=== PATIENT | male | born 1935 | race Caucasian/White ===

== ENCOUNTER 2017-03-29 12:14 | Emergency (ER) | payer BC ==
[2017-03-29 13:01] VITALS: PULSE 71; TEMP 98.5; BMI 25.9
--- NOTE | 2017-03-29 14:16 | PDOC ---
History of Present Illness - General Chief Complaint: Pain Stated Complaint: RT SHOULDER PAIN Time Seen by Provider: 03/29/17 14:15 - History of Present Illness Initial Comments: 81 year old with HTN, HLD, and recent prostate cancer diagnosis (stage IV to lymph nodes with bone scan negative, s/p hromone injection one week prior and planned radiation) presenting with acute on chronic bilateral shoulder pain. He had onset of sharp 5/10-10/10 bilateral shoulder pain a few months prior worse with movement and slightly better with rest. He eventually saw a rheumatolgist who was suspicious for PMR and started a steroid regimen which was helpful at higher doses (40 Mg and 20 MG), however, the pain acutely worsened 5-6 days prior when he tapered to 15 MG daily. He called his lithographic photographer apprentice who told him to stay the course and start PT which he states has worsened his pain and he has had trouble sleeping the last few nights. He came in today because the pain is unbearable. Denies fevers, chills, nausea vomiting, diarrhea, sob, lightheadedness, night sweats, chest pain, back pain, or other sick symptoms. 03/29/17 14:41 Past History - Past Medical History Allergies/Adverse Reactions: Allergies Allergy/AdvReac Type Severity Reaction Status Date / Time No Known Allergies Allergy Verified 03/29/17 14:41 Home Medications: Ambulatory Orders Amlodipine Besylate [Norvasc -] 5 mg PO DAILY 03/29/17 Carbidopa/Levodopa 25/100 [Sinemet 25/100 -] 1 each PO TID 03/29/17 Hydrochlorothiazide 25 mg PO DAILY 03/29/17 Oxycodone HCl/Acetaminophen [Percocet 5-325 mg Tablet] 1 tab PO Q6H PRN Pravastatin Sodium [Pravachol (Nf)] 40 mg PO HS 03/29/17 Prednisolone [Millipred] 15 mg PO DAILY 03/29/17 Tamsulosin HCl [Flomax] 0.4 mg PO DAILY 03/29/17 Cancer: Yes Cardiac Disorders: Yes COPD: No HTN: Yes Hypercholesterolemia: Yes - Suicide/Smoking/Psychosocial Hx Smoking History: Former smoker Have you smoked in the past 12 months: No Information on smoking cessation initiated: No Hx Alcohol Use: No Drug/Substance Use Hx: No Substance Use Type: None Review of Systems - Review of Systems Constitutional: No: Chills, Diaphoresis, Fever, Weakness HEENTM: No: Blurred Vision Respiratory: No: Cough, Orthopnea, Shortness of Breath, Productive cough Cardiac (ROS): No: Chest Pain, Irregular Heart Rate, Syncope ABD/GI: No: Diarrhea, Nausea, Vomiting : No: Burning, Dysuria, Discharge Musculoskeletal: Yes: Joint Pain, Joint Stiffness. No: Back Pain Integumentary: No: Change in Color, Erythema, Flushing, Lesions Neurological: No: Headache, Numbness, Tremors, Weakness Psychiatric: No: Anxiety, Depression Endocrine: No: Excessive Sweating, Flushing *Physical Exam - Vital Signs Last Vital Signs Temp Pulse Resp BP Pulse Ox 98.5 F 71 16 147/75 96 03/29/17 12:57 03/29/17 12:57 03/29/17 12:57 03/29/17 12:57 03/29/17 12:57 - Physical Exam General Appearance: Yes: Nourished, Appropriately Dressed. No: Apparent Distress HEENT: positive: EOMI, RUTH, Normal ENT Inspection, Normal Voice Neck: positive: Tender, Trachea midline, Normal Thyroid, Supple. negative: Rigid Respiratory/Chest: positive: Lungs Clear, Normal Breath Sounds. negative: Chest Tender, Respiratory Distress, Accessory Muscle Use Cardiovascular: positive: Regular Rhythm, Regular Rate, Murmur Gastrointestinal/Abdominal: positive: Normal Bowel Sounds, Flat, Soft. negative : Tender Musculoskeletal: positive: Normal Inspection, Decreased Range of Motion, Other ( No TTP at shoulder joints. Endorses pain is at bridget-medial shoulder joint space but not tender in that area.). negative: CVA Tenderness Extremity: positive: Normal Capillary Refill, Normal Inspection, Pelvis Stable. negative: Normal Range of Motion (limited shoulder ROM secondary to pain), Tender Integumentary: positive: Normal Color, Dry, Warm Neurologic: positive: Fully Oriented, Alert, Normal Mood/Affect, Normal Response. negative: Motor Strength 5/5 (LE strenght 5/5 but UE strenght unable to be masured appropriately 2/2 limited ROM in the setting of shoudler pain.) ED Treatment Course - LABORATORY CBC & Chemistry Diagram: 03/29/17 18:18 03/29/17 18:18 Medical Decision Making - Medical Decision Making 81 year old male with history of HTN, HLD, and recent prostate cancer diagnosis without evidence of bony met (Bone scan 2 weeks prior) presenting with acute on chronic bilateral shoulder pain. this is likely DJD vs. rheumatic process given his improvement in the past on steroids and worsening of symptoms with tapering of steroids. Other concerning emergent pathologies include dissection or acs. will get chest XR, EKG, and shoulder films. Placed 20 G PIV in left AC and will administer 1 G tylenol givne admission of relief with advil on home with little to no response with oxycodone. 03/29/17 15:36 Pain better with 1 G tylenol. No acute EKG changes. CXR, and bl shoulder XRs negative for acute pathology or DJD. Called lithographic photographer apprentice (Dr. Brown) and spoke to call service at 16:35 PM. 03/29/17 16:32 Official read of CXR indicates likely tortuous but possibly slightly widened upper aorta; patient not complaining of chest pain but bilateral arm BP unequal (Left arm 127/64 and right 108/63 with repeats supporting this) so dissection is of concern. Will get labs and CTA. Shoulder XRs also read as without acute pathology or obvious arthropathy. Will ultimately dispo pending CTA resutls. 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 Brown on Saturday. We were unable to speak to Kevin. Patient's pain is better and is OK with discharge. We will also set up with orthopedic surgery and and ct surgery follow up. 03/29/17 20:51 *DC/Admit/Observation/Transfer Diagnosis at time of Disposition: Shoulder pain, bilateral Qualifiers: Chronicity: chronic Qualified Code(s): M25.511 - Pain in right shoulder - Discharge Dispostion Disposition: HOME Condition at time of disposition: Improved Admit: No - Referrals Referrals: Serafin Jackson MD [Staff Physician] - Butch Brown MD [Staff Physician] - - Patient Instructions Additional Instructions: We scanned your shoulders and your chest. There was no sign of any problems with your bones. Your aorta looked slightly large on the chest xray and your blood pressure in each arm was different so we did a CT scan of your chest saw a slightly enlarged aorta that you should follow up with CT surgery. Please keep your steroids at 25 MG daily and use Tylenol and Advil as needed. Please follow up with your lithographic photographer apprentice on Saturday for better management of your pain. Plesae follow up with the orthopedic surgeon and the thoracic surgeon for your shoulders and your aorta size respectively. Please return to the ED if you have any new or worsening problems. - Post Discharge Activity
--- NOTE | 2017-03-29 15:03 | PDOC ---
Attending Attestation - Resident Resident Name: Naun Aguirre - ED Attending Attestation I have performed the following: I have examined & evaluated the patient, The case was reviewed & discussed with the resident, I agree w/resident's findings & plan, Exceptions are as noted - HPI HPI: 03/29/17 14:59 81y M hx of htn, hl, recent dx of stage 4 prostate ca, presents with complaint of acute on chronic b/l shoulder pain, atraumatic, was started on steroids due to suspected PMR, as pt tapered down on the steroids, his pain recurreed. worse with movement, sharp stabbing in nature improved with rest but he still has 5/ 10 pain at rest, so much so gi the could not sleep last night. pt candy any cp , back pain, new numbness/tinging/weakness. (has chronic foot drup due to disk herniation) on exam pt otherwise well appearing in no distress cardiac/pulm exan nromal pulses symmetric in upper extermities bp noted to be assyemetric on UE - cxr noted tortuosity with prominent mediastinal sillhouette inlight of his physical exam findings, consider possible dissection will obtain cmp, and CTA - Physicial Exam PE: 03/30/17 16:48 se eabo e - Medical Decision Making 03/30/17 16:49 see above Heart Score/ECG Review - ECG Impressions Comment:: 03/29/17 18:15 Twelve-lead EKG was performed and reviewed by me. There is normal sinus rhythm with a normal rate. Rate of 70 First-degree AV block PACs noted LVH with repolarization
[2017-03-29] MEDS ORDERED: ACETAMINOPHEN 1000 MG/100 ML VIAL (NON FORMULARY) IVPB ONE (15:07)
[2017-03-29] MEDS ORDERED: ACETAMINOPHEN INJECTION 100 ML IVPB ONE (15:25)
--- NOTE | 2017-03-29 15:57 | EKG ---
Test Reason : Blood Pressure : / mmHG Vent. Rate : 070 BPM Atrial Rate : 070 BPM P-R Int : 216 ms QRS Dur : 090 ms QT Int : 406 ms P-R-T Axes : 022 -10 167 degrees QTc Int : 438 ms SINUS RHYTHM WITH 1ST DEGREE A-V BLOCK WITH PREMATURE ATRIAL COMPLEXES LEFT VENTRICULAR HYPERTROPHY WITH REPOLARIZATION ABNORMALITY ABNORMAL ECG NO PREVIOUS ECGS AVAILABLE Confirmed by MD SEMEA, MERLENE ([id number]) on 03/29/2017 3:57:14 PM Referred By: Confirmed By:MERLENE STEPHENSON MD
[2017-03-29 18:30] VITALS: BP 127/64
[2017-03-29 18:30] LABS: HEMATOCRIT 39.8 % (35.4-49); HEMOGLOBIN 13.4 GM/dL (11.7-16.9); MCH 32.2 pg (25.7-33.7); MCHC 33.7 g/dl (32.0-35.9); MEAN CELL VOLUME 95.3 fl (80-96); MEAN PLT VOLUME 8.6 fl (7.5-11.1); PLATELET COUNT 238 K/MM3 (134-434); RBC 4.17 M/mm3 (4.00-5.60); WHITE BLOOD COUNT 9.7 K/mm3 (4.0-10.0)
[2017-03-29 19:05] LABS: INR 0.94 (0.82-1.09); PROTHROMBIN TIME (PATIENT) 10.6 SEC (9.98-11.88)
[2017-03-29 19:14] LABS: ALBUMIN 3.2 g/dl (3.4-5.0); ALK PHOS 56 U/L (45-117); ANION GAP 4 (8-16); BILIRUBIN,TOTAL 0.9 mg/dL (0.2-1.0); BLOOD UREA NITROGEN 28 mg/dL (7-18); CALCIUM 8.5 mg/dL (8.5-10.1); CHLORIDE 101 mmol/L (98-107); CO2 34 mmol/L (21-32); CREATININE 0.9 mg/dL (0.7-1.3); GLUCOSE,RANDOM 114 mg/dL (74-106); POTASSIUM 4.1 mmol/L (3.5-5.1); SGOT/AST 20 U/L (15-37); SGPT/ALT 32 U/L (12-78); SODIUM 139 mmol/L (136-145); TOT PROT 6.5 g/dl (6.4-8.2)
== END 2017-03-29 22:01 | disposition home or self-care (01) ==
LOC: JER 12:14
PROC: 3E033NZ Introduction of Analgesics, Hypnotics, Sedatives into Peripheral Vein, Percutaneous Approach (ICD-10-PCS; principal; 2017-03-29)
DX: M25.512 Pain in left shoulder (principal); M25.511 Pain in right shoulder; I10 Essential (primary) hypertension; E78.00 Pure hypercholesterolemia, unspecified; C61 Malignant neoplasm of prostate; C77.9 Secondary and unspecified malignant neoplasm of lymph node, unspecified
CPT/HCPCS: 36415; 71046-TC; 71275-TC; 73030-TC-LT; 73030-TC-RT; 80053; 85027; 85610; 86850; 86900; 86901; 93005; 93010; 96374; 99283-25

== ENCOUNTER 2017-04-04 08:54 | Day surgery (SDC) | payer BC ==
[2017-04-03 13:45] VITALS: BMI 25.9
[2017-04-04] MEDS ORDERED: PROPOFOL 20 ML ONE (09:36)
[2017-04-04] MEDS ORDERED: LIDOCAINE HCL/PF 2% SDV 5ML VIAL ONE (09:36)
[2017-04-04] MEDS ORDERED: MIDAZOLAM HCL 2 MG/2 ML SINGLE DOSE VIAL ONE (09:38)
[2017-04-04] MEDS ORDERED: oxyCODONE HCL 5 MG TABLET PO PRN (10:13)
[2017-04-04] MEDS ORDERED: LACTATED RINGERS SOLUTION 1,000 ML IV SCH (10:15)
[2017-04-04] MEDS ORDERED: ceFAZolin SODIUM 1 GM VIAL IVPB ONE (10:38)
[2017-04-04] MEDS ORDERED: SODIUM CHLORIDE 0.9% P/F 10 ML VIAL IJ ONE (10:48)
[2017-04-04] MEDS ORDERED: ceFAZolin SODIUM 1 GM VIAL ONE (10:48)
--- NOTE | 2017-04-04 11:41 | OP ---
Operative Note - Note: Operative Date: 04/04/17 Pre-Operative Diagnosis: rule out temporal arteritis Operation: right temporal artery biopsy Post-Operative Diagnosis: Same as Pre-op Surgeon: Virgil Clayton Anesthesia: Fractional Estimated Blood Loss (mls): 20 Operative Report Dictated: Yes
--- NOTE | 2017-04-04 11:43 | HP ---
Admitting History and Physical - Admission Chief Complaint: rule out temporal arteritis Limitations to Obtaining History: No Limitations - Smoking History Smoking history: Former smoker Have you smoked in the past 12 months: No If you are a former smoker, when did you quit?: 1997 - Alcohol/Substance Use Hx Alcohol Use: No Home Medications - Allergies Allergies/Adverse Reactions: Allergies Allergy/AdvReac Type Severity Reaction Status Date / Time No Known Allergies Allergy Verified 04/04/17 09:11 - Home Medications Home Medications: Ambulatory Orders Amlodipine Besylate [Norvasc -] 5 mg PO DAILY 03/29/17 Carbidopa/Levodopa 25/100 [Sinemet 25/100 -] 1 each PO TID 03/29/17 Hydrochlorothiazide 25 mg PO DAILY 03/29/17 Oxycodone HCl/Acetaminophen [Percocet 5-325 mg Tablet] 1 tab PO Q6H PRN Pravastatin Sodium [Pravachol (Nf)] 40 mg PO HS 03/29/17 Prednisolone [Millipred] 40 mg PO DAILY 03/29/17 Tamsulosin HCl [Flomax] 0.4 mg PO DAILY 03/29/17 Review of Systems - Review of Systems Constitutional: reports: No Symptoms Eyes: reports: No Symptoms HENT: reports: No Symptoms Neck: reports: No Symptoms Cardiovascular: reports: No Symptoms Respiratory: reports: No Symptoms Gastrointestinal: reports: No Symptoms Genitourinary: reports: No Symptoms Breasts: reports: No Symptoms Reported Musculoskeletal: reports: No Symptoms Integumentary: reports: No Symptoms Neurological: reports: No Symptoms Endocrine: reports: No Symptoms Hematology/Lymphatic: reports: No Symptoms Psychiatric: reports: No Symptoms Physical Examination Vital Signs: Vital Signs Temperature 97.4 F L 04/04/17 09:12 Pulse Rate 69 04/04/17 09:12 Respiratory Rate 16 04/04/17 09:12 Blood Pressure 158/74 04/04/17 09:12 O2 Sat by Pulse Oximetry (%) 97 04/04/17 09:12 Constitutional: Yes: Well Nourished, No Distress, Calm Eyes: Yes: WNL, Conjunctiva Clear, EOM Intact HENT: Yes: WNL, Atraumatic, Normocephalic Neck: Yes: WNL, Supple, Trachea Midline Cardiovascular: Yes: WNL, Regular Rate and Rhythm Respiratory: Yes: WNL, Regular, CTA Bilaterally Gastrointestinal: Yes: WNL, Normal Bowel Sounds Musculoskeletal: Yes: WNL Extremities: Yes: WNL Edema: No Integumentary: Yes: WNL Neurological: Yes: WNL, Alert, Oriented ...Motor Strength: WNL Psychiatric: Yes: WNL Problem List - Problems (1) Temporal arteritis Code(s): M31.6 - OTHER GIANT CELL ARTERITIS (2) Shoulder pain, bilateral Code(s): M25.511 - PAIN IN RIGHT SHOULDER; M25.512 - PAIN IN LEFT SHOULDER Assessment/Plan rule out temporal arteritis 1. for right temporal artery biopsy
[2017-04-04 12:43] VITALS: TEMP 98.3
[2017-04-04 13:49] VITALS: BP 126/73; PULSE 78
--- NOTE | 2017-04-05 16:38 | PATH ---
Surgical Pathology Report Patient Name: TASNEEM WAY Med. Rec. #: [id number] /Age/Gender: 1935 (Age: 81) / M Account: [id number] Location: [facility] Taken: 04/04/2017 Received: 04/04/2017 Reported: 04/05/2017 Physicians: Virgil Clayton Specimen(s) Received RIGHT TEMPORAL ARTERY BIOPSY Clinical History Temporal arteritis Final Diagnosis TEMPORAL ARTERY, RIGHT, BIOPSY: MUSCULAR ARTERY WITH NO EVIDENCE OF ARTERITIS. MULTIPLE LEVELS EXAMINED. Electronically Signed Allison Aponte M.D. Gross Description Received in formalin labeled "right temporal artery," is a 1.6 cm in length portion of vasculature, consistent with a temporal artery biopsy. The specimen is sectioned and entirely submitted in one cassette. /04/04/2017 saudi04/04/2017
== END 2017-04-04 13:50 | disposition home or self-care (01) ==
LOC: JASU-SURG 08:54
PROVIDERS: ATTEND Surgery Vascular Surgery
PROC: 03BS0ZX Excision of Right Temporal Artery, Open Approach, Diagnostic (ICD-10-PCS; principal; 2017-04-04 10:30)
DX: M31.6 Other giant cell arteritis (principal)
CPT/HCPCS: 94760

== ENCOUNTER 2017-04-09 11:38 | Observation (INO) | payer BC ==
[2017-04-09 12:32] VITALS: BMI 27.6
--- NOTE | 2017-04-09 12:47 | PDOC ---
History of Present Illness - General Chief Complaint: Cold Symptoms Stated Complaint: FLU LIKE SYMPTOMS, SHOULDER PAIN Time Seen by Provider: 04/09/17 12:46 - History of Present Illness Initial Comments: 81 year old with HTN, HLD, and recent prostate cancer diagnosis (stage IV to lymph nodes with bone scan negative few weeks prior, s/p hormone injection two week prior and planned radiation) presenting with acute on chronic bilateral shoulder pain and recently flu positive. He had onset of sharp 5/10-10/10 bilateral shoulder pain a few months prior worse with movement and at night and slightly better with rest, heat packs, and high dose steroids. He eventually saw a rheumatolgist who was suspicious for PMR and recent performed a temporal artery biopsy after a CT scan in our ED demonstrated a slightly dilated aorta that lead to suspicion for GCA. He was uptitrated on his steroid regimen to 50 MG a few days prior by his environmental research project manager, with little relief. He came in today because the pain is unbearable. He was swabbed and flu positive two days prior in the setting of cough, fevers, and some chills. Denies nausea, vomiting, diarrhea, sob, lightheadedness, night sweats, chest pain, back pain, or other sick symptoms. 04/09/17 13:28 Past History - Past Medical History Allergies/Adverse Reactions: Allergies Allergy/AdvReac Type Severity Reaction Status Date / Time No Known Allergies Allergy Verified 04/09/17 12:26 Home Medications: Ambulatory Orders Amlodipine Besylate [Norvasc -] 5 mg PO DAILY 03/29/17 Carbidopa/Levodopa 25/100 [Sinemet 25/100 -] 1 each PO TID 03/29/17 Hydrochlorothiazide 25 mg PO DAILY 03/29/17 Oxycodone HCl/Acetaminophen [Percocet 5-325 mg Tablet] 1 tab PO Q6H PRN Pravastatin Sodium [Pravachol (Nf)] 40 mg PO HS 03/29/17 Prednisolone [Millipred] 40 mg PO DAILY 03/29/17 Tamsulosin HCl [Flomax] 0.4 mg PO DAILY 03/29/17 Oseltamivir Phosphate [Tamiflu] 75 mg PO DAILY 04/09/17 Promethazine HCl [Phenergan Liquid -] 5 ml PO PRN PRN 04/09/17 Anemia: No Asthma: No Cancer: Yes (DX WITH PROSTAE CA,STAGE 4) Cardiac Disorders: Yes (ENLARGED AORTIC ANERYSM) CVA: No COPD: No CHF: No DVT: No Dementia: No Diabetes: No GI Disorders: No Disorders: No HTN: Yes Hypercholesterolemia: Yes Liver Disease: No Seizures: No Thyroid Disease: No - Immunization History Immunization Up to Date: Yes - Suicide/Smoking/Psychosocial Hx Smoking History: Former smoker Have you smoked in the past 12 months: No If you are a former smoker, when did you quit?: 1997 Information on smoking cessation initiated: No Hx Alcohol Use: No Drug/Substance Use Hx: No Substance Use Type: None Hx Substance Use Treatment: No Review of Systems - Review of Systems Constitutional: Yes: Fever. No: Chills, Diaphoresis HEENTM: No: Blurred Vision Respiratory: Yes: Cough. No: Shortness of Breath, Wheezing, Productive cough Cardiac (ROS): No: Chest Pain, Edema, Lightheadedness, Palpitations, Syncope, Chest Tightness ABD/GI: No: Diarrhea, Nausea, Vomiting : No: Burning, Dysuria, Discharge, Hematuria Integumentary: No: Erythema, Lesions Neurological: No: Headache, Numbness Psychiatric: No: Anxiety, Depression *Physical Exam - Vital Signs Last Vital Signs Temp Pulse Resp BP Pulse Ox 98.2 F 78 15 122/57 98 04/09/17 12:26 04/09/17 12:26 04/09/17 12:26 04/09/17 12:26 04/09/17 12:26 - Physical Exam General Appearance: Yes: Nourished, Appropriately Dressed. No: Apparent Distress HEENT: positive: EOMI, RUTH, Normal ENT Inspection, Normal Voice Neck: positive: Trachea midline, Normal Thyroid, Supple. negative: Tender, Rigid Respiratory/Chest: positive: Lungs Clear, Normal Breath Sounds. negative: Chest Tender, Respiratory Distress, Accessory Muscle Use Cardiovascular: positive: Regular Rhythm, Regular Rate Gastrointestinal/Abdominal: positive: Normal Bowel Sounds, Flat, Soft. negative : Tender Musculoskeletal: negative: Normal Inspection (tendernes over the bicep head insertion bilaterally), CVA Tenderness Extremity: positive: Normal Capillary Refill, Normal Inspection, Normal Range of Motion Integumentary: positive: Normal Color, Dry, Warm Neurologic: positive: Fully Oriented, Alert, Normal Mood/Affect, Normal Response , Motor Strength 5/5 Heart Score/ECG Review - History History: Slightly suspicious - Electrocardiogram EKG: Normal - Age Age: >/= 65 - Risk Factors Risk Factors Heart Score: Yes Hx Hypercholesterolemia, Yes Hx Hypertension Based on the list above the patient has:: 1-2 risk factors - Troponin Troponin: 1-3x normal limit - Score Heart Score - Total: 4 ED Treatment Course - LABORATORY CBC & Chemistry Diagram: 04/09/17 14:00 04/09/17 14:00 Medical Decision Making - Medical Decision Making 81 year old male with PMH of prostate CA presenting with acute on chronic bilateral shoulder pain that has been worsening over the past few days and is flu positive. The pain is likely due to his chronic pain (PMR vs. GCA) but troponin returned positive so will have to admit to tele obs given Heart Score of 4 (minor progression of ST elevation in V3). He did have a remote smoking history with cessation 20+ years prior. 04/09/17 15:[address] Saavedra regarding admission, will admit to tele Obs under Dr. Knight for Troponin rule out and possible further workup for cardiac pathology. 04/09/17 16:34 *DC/Admit/Observation/Transfer Diagnosis at time of Disposition: Troponin level elevated - Discharge Dispostion Condition at time of disposition: Stable Admit: Yes - Referrals Referrals: Ry Celestin [Primary Care Provider] - - Patient Instructions - Post Discharge Activity
[2017-04-09] MEDS ORDERED: ACETAMINOPHEN 1000 MG/100 ML VIAL (NON FORMULARY) IVPB ONE ×2 (13:17→13:25)
[2017-04-09] MEDS ORDERED: SODIUM CHLORIDE 0.9% 1000 ML INFUS.BAG IV ONE (13:17)
[2017-04-09] MEDS ORDERED: SODIUM CHLORIDE 0.9% 500 ML INFUS.BAG IV ONE (13:24)
[2017-04-09] MEDS ORDERED: ACETAMINOPHEN INJECTION 100 ML IVPB ONE (13:36)
--- NOTE | 2017-04-09 14:12 | PDOC ---
Attending Attestation - HPI HPI: 04/09/17 15:35 The patient is an 81 year old male with a significant PMH of recent stage IV prostate CA diagnosis, HTN, and hyperlipidemia who presents to the emergency department with acute on chronic bilateral shoulder pain. He reports he has had bilateral shoulder pain for a few months which is aggravated by movement, but notes it has become worse lately, especially with physical therapy. He presents to the ED requesting pain control. He denies any other complaints. Allergies: NKA PCP: Dr. Celestin - Physicial Exam PE: 04/09/17 15:35 GENERAL: Awake, alert, and fully oriented, in no acute distress HEAD: No signs of trauma EYES: PERRLA, EOMI, sclera anicteric, conjunctiva clear ENT: Auricles normal inspection, hearing grossly normal, nares patent, oropharynx clear without exudates. Moist mucosa NECK: Normal ROM, supple, no lymphadenopathy, JVD, or masses LUNGS: Breath sounds equal, clear to auscultation bilaterally. No wheezes, and no crackles HEART: Regular rate and rhythm, normal S1 and S2, no murmurs, rubs or gallops ABDOMEN: Soft, nontender, normoactive bowel sounds. No guarding, no rebound. No masses EXTREMITIES: stiffness and pain with passive range of motion but has full ROM throughout, no edema. No clubbing or cyanosis. No cords, erythema, or tenderness BACK: No midline spinal tenderness in cervical/thoracic/lumbar region NEUROLOGICAL: Normal speech, cranial nerves intact, negative pronator drift, 5/ 5 strength in all 4 extremities, normal sensation to light touch in all 4 extremities, normal cerebellar exam, normal gait, normal reflexes and tone SKIN: Warm, Dry, normal turgor, no rashes or lesions noted. <Marc Juarez - Last Filed: 04/09/17 15:35> - Resident Resident Name: Naun Aguirre - ED Attending Attestation I have performed the following: I have examined & evaluated the patient, The case was reviewed & discussed with the resident, I agree w/resident's findings & plan, Exceptions are as noted - Medical Decision Making 04/09/17 14:09 81 year old with HTN, HLD, polymyalgia rhematica, recent metastatic prostate cancer, dx flu 2 days ago p/w with acute on chronic bilateral shoulder pain. Vitals unremarkable. Exam with some stiffness and pain with range of motion of the shoulders and wrists bilaterally. Pain is likely secondary to polymyalgia rheumatica and possibly due to myalgias or arthralgias from his recent diagnosis of the flu. Given his age and some risk factors we'll obtain basic labs and a troponin to make sure that this is not cardiac in nature. We'll also order a chest x-ray. 04/09/17 16:00 Labs remarkable for mild troponin leak 0.06. We have no previous troponins on record, and thus there is some concern for the patient's pain being cardiac in nature. This troponin may also be demand in the setting of influenza. Remainder of labs unremarkable and chest x-ray is clear. EKG with some changes including greater elevation in lead V3, however this is isolated to 1 lead. Also frequent PVCs and PACs. Given these findings, the patient would benefit from telemetry monitoring and cardiac workup. The hospitalist team has been paged for sign out and find out has been given to the resident. 04/09/17 17:16 Pt has been admitted to Dr. Knight for further management. <Carmela Hernandez - Last Filed: 04/09/17 17:22>
[2017-04-09 14:21] LABS: BASO % 0.5 % (0-2.0); EOS % 0.2 % (0-4.5); HEMATOCRIT 36.8 % (35.4-49); HEMOGLOBIN 12.2 GM/dL (11.7-16.9); LYMPH % 6.9 % (8-40); MCH 31.5 pg (25.7-33.7); MCHC 33.2 g/dl (32.0-35.9); MEAN CELL VOLUME 94.7 fl (80-96); MONO % 5.5 % (3.8-10.2); NEUT % 86.9 % (42.8-82.8); PLATELET COUNT 198 K/MM3 (134-434); RBC 3.89 M/mm3 (4.00-5.60); RDW 14.3 % (11.9-15.9); WHITE BLOOD COUNT 8.5 K/mm3 (4.0-10.0)
[2017-04-09 14:48] LABS: ALBUMIN 2.6 g/dl (3.4-5.0); ANION GAP 8 (8-16); BILIRUBIN,TOTAL 0.5 mg/dL (0.2-1.0); BLOOD UREA NITROGEN 26 mg/dL (7-18); CALCIUM 8.1 mg/dL (8.5-10.1); CHLORIDE 101 mmol/L (98-107); CO2 32 mmol/L (21-32); CREATININE 0.8 mg/dL (0.7-1.3); GLUCOSE,RANDOM 126 mg/dL (74-106); POTASSIUM 3.8 mmol/L (3.5-5.1); SGOT/AST 22 U/L (15-37); SGPT/ALT 17 U/L (12-78); SODIUM 141 mmol/L (136-145); TOT PROT 5.5 g/dl (6.4-8.2)
[2017-04-09 14:50] LABS: ALK PHOS 47 U/L (45-117)
[2017-04-09] MEDS ORDERED: LIDOCAINE 5% TOPICAL PATCH TP ONE (15:32)
[2017-04-09] MEDS ORDERED: LIDOCAINE 5% TOPICAL PATCH ONE (15:53)
[2017-04-09] MEDS ORDERED: ASPIRIN 81 MG CHEWABLE TABLETS PO ONE (16:17)
--- NOTE | 2017-04-09 16:43 | HP ---
CHIEF COMPLAINT: "my shoulders hurt" PCP: Dr Celestin HISTORY OF PRESENT ILLNESS: This is an 81 yo M with PMH of polymyalgia rheumatica with recent flare, Flu + on tamiflu day 2, HTN, HLD, and recently dx prostate CA (stage IV + lymph nodes - bone scan, s/p hormone injection two week prior and planned radiation), who presents with worsening b/l shoulder pain and L wrist pain. Patient was diagnosed with polymyalgia rheaumatica by Dr Haskins several months ago, has been in remission but experienced a flare up several weeks ago, has been on steroids x 3 weeks, recently increased prednisone dose to 50 daily. had a recent negative temporal artery biopsy, although has not had h/a or vision changes. Patient has been sedentary since diagnosis. Affected joints include b/ l shoulders and L wrist. patient was foudn to be flu + 2 days ago by pcp and has been taking tamiflu. In ed found to have a borderline trop 0.06. Patient denies CP, palpitations, back pain, syncope, dizziness, poor appetite, orthopnea. Reports 10 lb weight gain, slight increase in exertional dyspnea and increased b/l LE edema since starting steroids again. Denies f/c, n/v, diarrhea , dysuria. ER course was notable for: (1)ekg: new q wave in v3, no acs or strain (2)labs, cxr no acute process (3)lidocaine patch, ivf, asa Recent Travel: denies PAST MEDICAL HISTORY: as above PAST SURGICAL HISTORY: as above Social History: lives at home Smoking: past 10 pack year history Alcohol: denies Drugs: denies Family History: no history of autoimmune disease Allergies No Known Allergies Allergy (Verified 04/09/17 12:26) HOME MEDICATIONS: Home Medications Medication Instructions Recorded Amlodipine Besylate [Norvasc -] 5 mg PO DAILY 03/29/17 Carbidopa/Levodopa 25/100 [Sinemet 1 each PO TID 03/29/17 25/100 -] Hydrochlorothiazide 25 mg PO DAILY 03/29/17 Oxycodone HCl/Acetaminophen 1 tab PO Q6H PRN 03/29/17 [Percocet 5-325 mg Tablet] Pravastatin Sodium [Pravachol (Nf)] 40 mg PO HS 03/29/17 Prednisolone [Millipred] 40 mg PO DAILY 03/29/17 Tamsulosin HCl [Flomax] 0.4 mg PO DAILY 03/29/17 Oseltamivir Phosphate [Tamiflu] 75 mg PO DAILY 04/09/17 Promethazine HCl [Phenergan Liquid 5 ml PO PRN PRN 04/09/17 -] REVIEW OF SYSTEMS CONSTITUTIONAL: Absent: fever, chills HEENT: Absent: rhinorrhea, nasal congestion, throat pain CARDIOVASCULAR: Absent: chest pain, syncope, palpitations, irregular heart rate, lightheadedness RESPIRATORY: Absent: cough, shortness of breath, orthopnea GASTROINTESTINAL: Absent: abdominal pain, abdominal distension, nausea, vomiting, diarrhea, constipation, melena, hematochezia GENITOURINARY: Absent: dysuria, frequency, urgency, hesitancy, hematuria, flank pain, genital pain MUSCULOSKELETAL: Absent: myalgia, arthralgia, joint swelling, back pain, neck pain SKIN: Absent: rash, itching, pallor HEMATOLOGIC/IMMUNOLOGIC: Absent: easy bleeding, easy bruising, lymphadenopathy, frequent infections ENDOCRINE: Absent: unexplained weight gain, unexplained weight loss, heat intolerance, cold intolerance NEUROLOGIC: Absent: headache, focal weakness or paresthesias, dizziness, unsteady gait, seizure, mental status changes, bladder or bowel incontinence PSYCHIATRIC: Absent: anxiety, depression, suicidal or homicidal ideation, hallucinations. PHYSICAL EXAMINATION Vital Signs - 24 hr 04/09/17 12:26 Temperature 98.2 F Pulse Rate 78 Respiratory 15 Rate Blood Pressure 122/57 O2 Sat by Pulse 98 Oximetry (%) GENERAL: Awake, alert, and fully oriented, in no acute distress. HEAD: Normal with no signs of trauma. EYES: Pupils equal, round and reactive to light, extraocular movements intact, sclera anicteric, conjunctiva clear. No lid lag. EARS, NOSE, THROAT: Ears normal, nares patent, oropharynx clear without exudates. Moist mucous membranes. NECK: supple without JVD or hepatojugular reflex LUNGS: Breath sounds equal, clear to auscultation bilaterally. HEART: Regular rate and rhythm, normal S1 and S2 ABDOMEN: Soft, nontender, not distended, normoactive bowel sounds, no guarding, no rebound, no masses. MUSCULOSKELETAL:No CVA tenderness. UPPER EXTREMITIES: 2+ pulses, warm, well-perfused. L wrist edema LOWER EXTREMITIES: 1+ pulses, warm, well-perfused. No calf tenderness. b/l ankle 2+ edema NEUROLOGICAL: Cranial nerves II-XII grossly intact. Normal speech. PSYCHIATRIC: Cooperative. Good eye contact. Appropriate mood and affect. SKIN: Warm, dry Laboratory Results - last 24 hr 04/09/17 04/09/17 14:00 14:00 WBC 8.5 D RBC 3.89 L Hgb 12.2 Hct 36.8 MCV 94.7 MCH 31.5 MCHC 33.2 RDW 14.3 Plt Count 198 D MPV 8.0 Neutrophils % 86.9 H Lymphocytes % 6.9 L D Monocytes % 5.5 Eosinophils % 0.2 Basophils % 0.5 Sodium 141 Potassium 3.8 Chloride 101 Carbon Dioxide 32 Anion Gap 8 BUN 26 H Creatinine 0.8 Creat Clearance w eGFR > 60 Random Glucose 126 H D Calcium 8.1 L Total Bilirubin 0.5 D AST 22 D ALT 17 D Alkaline Phosphatase 47 Creatine Kinase 43 Troponin I 0.06 H Total Protein 5.5 L Albumin 2.6 L ASSESSMENT/PLAN: This is an 81 yo M with PMH of polymyalgia rheumatica with recent flare, Flu + on tamiflu day 2, HTN, HLD, and recently dx prostate CA (stage IV + lymph nodes - bone scan, s/p hormone injection two week prior and planned radiation), who presents with worsening b/l shoulder pain and L wrist pain. b/l shoulder pain and L wrist pain -appears to be due to polumyalgia rheumatica, possibly exacerbated by influenza -continue daily steroids and percocet analgesia -outpatient shoulder MRI Elevated troponin -borderline 0.06;; trend 2 more times -EKG no evidence of strain or acs, no chest pain or discomfort -TTE -cardiac monitoring Influenxza + -continue tamiflu HTN -HCTZ, amlodipine Parkinsons -continue carbidopa levodopa HLD -continue lipitor Dispo -obs tele Problem List - Problem (1) HTN (hypertension) Code(s): I10 - ESSENTIAL (PRIMARY) HYPERTENSION (2) Hyperlipidemia Code(s): E78.5 - HYPERLIPIDEMIA, UNSPECIFIED (3) Parkinson disease Code(s): G20 - PARKINSON'S DISEASE (4) Prostate CA Code(s): C61 - MALIGNANT NEOPLASM OF PROSTATE (5) Polymyalgia rheumatica Code(s): M35.3 - POLYMYALGIA RHEUMATICA (6) Troponin level elevated Code(s): R74.8 - ABNORMAL LEVELS OF OTHER SERUM ENZYMES (7) Shoulder pain, bilateral Code(s): M25.511 - PAIN IN RIGHT SHOULDER; M25.512 - PAIN IN LEFT SHOULDER Visit type - Emergency Visit Emergency Visit: Yes Care time: The patient presented to the Emergency Department on the above date and was hospitalized for further evaluation of their emergent condition. - New Patient This patient is new to me today: Yes Date on this admission: 04/09/17 - Critical Care Critical Care patient: No
[2017-04-09] MEDS ORDERED: ASPIRIN 81 MG CHEWABLE TABLETS ONE (16:57)
[2017-04-09] MEDS ORDERED: PROMETHAZINE HCL ORAL SYRUP 6.25 MG/5 ML (BULK BOTTLE) PO PRN (17:29)
--- NOTE | 2017-04-09 17:30 | PN ---
Teaching Attending Note Name of Resident: Rebekah Saavedra ATTENDING PHYSICIAN STATEMENT Time of evaluation: 5:15 PM I saw and evaluated the patient. I reviewed the resident's note and discussed the case with the resident. I agree with the resident's findings and plan as documented. SUBJECTIVE: 81 yom with recently diagnosed stage IV prostate Ca on hormonal therapy, Parkinson disease, right foot drop, HTN, with bilateral shoulder pain for last 2 months limiting movements. Patient was seen by Dr. Haskins and diagnosed with Polymyalgia Rheumatica, placed on steroids, with worsening of symptoms with steroid taper to 5 mg, s/p temporal artery biopsy on 04/04/2017, neg for GCA, currently on Prednisolone ?50 mg, planned for MRI shoulder on 04/11, diagnosed with Flu by PCP yesterday placed on tamiflu, comes with worsening bilateral shoulder pain, with worsening limitation of movements seeking pain control. Patient reports right shoulder pain worse than left, also has left shoulder shooting down LUE with hand/wrist swelling which has improved with recently increased steroid dose. Limited activity but no prior c/o chest pain, palpitations, dyspnea, dizziness, jaw pain, abdominal or urinary symptoms. Currently reports bilateral shoulder pain with some improvement with lidocaine patch otherwise asymptomatic. OBJECTIVE: Vital Signs Period Temp Pulse Resp BP Sys/Valenzuela Pulse Ox Last 24 Hr 98.2 F 78 15 122/57 98 Intake & Output 04/06/17 04/07/17 04/08/17 04/09/17 23:59 23:59 23:59 23:59 Weight 209 lb GENERAL: Awake, alert, and fully oriented, in no acute distress. HEAD: Normal with no signs of trauma, right forehead scar from prior temporal artery biopsy EYES: Pupils equal, round and reactive to light, extraocular movements intact, sclera anicteric, conjunctiva clear. No lid lag. EARS, NOSE, THROAT: Ears normal, nares patent, oropharynx clear without exudates. Moist mucous membranes. NECK: soft, supple, No JVD LUNGS: Breath sounds equal, few basilar rales. No wheezes, and no crackles. No accessory muscle use. HEART: S1S2 regular. ABDOMEN: Soft, nontender, not distended, normoactive bowel sounds, no guarding, no rebound, no masses. MUSCULOSKELETAL: bilateral shoulder pain with active ROM but not with passive ROM, no point tenderness noted, Mild right hand and minimal Left hand swelling noted. Extremities: bilateral 2+ pedal edema, varicosities lower extremities NEUROLOGICAL: AAOx3, facial symmetry, EOMI, PERRLA, upper extremity ROM limited by pain but grossly non focal, Right foot drop, RUE tremors PSYCHIATRIC: Cooperative. Good eye contact. Appropriate mood and affect. SKIN: Warm, dry, normal turgor, no rashes or lesions noted, normal capillary refill. Home Medication List Medication Instructions Recorded Confirmed Type Amlodipine Besylate [Norvasc -] 5 mg PO DAILY 03/29/17 04/09/17 History Carbidopa/Levodopa 25/100 [Sinemet 1 each PO TID 03/29/17 04/09/17 History 25/100 -] Hydrochlorothiazide 25 mg PO DAILY 03/29/17 04/09/17 History Oxycodone HCl/Acetaminophen 1 tab PO Q6H PRN 03/29/17 04/09/17 History [Percocet 5-325 mg Tablet] Pravastatin Sodium [Pravachol (Nf)] 40 mg PO HS 03/29/17 04/09/17 History Prednisolone [Millipred] 40 mg PO DAILY 03/29/17 04/09/17 History Tamsulosin HCl [Flomax] 0.4 mg PO DAILY 03/29/17 04/09/17 History Oseltamivir Phosphate [Tamiflu] 75 mg PO DAILY 04/09/17 04/09/17 History Promethazine HCl [Phenergan Liquid 5 ml PO PRN PRN 04/09/17 04/09/17 History -] Active Medications Generic Name Dose Route Start Last Admin Trade Name Freq PRN Reason Stop Dose Admin Acetaminophen 325 mg 04/09/17 17:47 Tylenol - PO Q6H PRN PAIN LEVEL 1-5 Amlodipine Besylate 5 mg 04/10/17 10:00 Norvasc - PO DAILY [facility] Atorvastatin Calcium 40 mg 04/09/17 22:00 Lipitor - PO HS [facility] Carbidopa/Levodopa 1 each 04/09/17 22:00 Sinemet 25/100 - PO TID [facility] Hydrochlorothiazide 25 mg 04/10/17 10:00 Hctz - PO DAILY [facility] Miscellaneous 1 each 04/09/17 22:00 Lidoderm Patch Removal MC DAILY@2200 [facility] Oseltamivir Phosphate 75 mg 04/10/17 10:00 Tamiflu - PO 04/15/17 09:59 DAILY [facility] Oxycodone HCl 5 mg 04/09/17 17:47 Roxicodone - PO Q6H PRN PAIN LEVEL 1 - 5 Prednisone 50 mg 04/10/17 10:00 Deltasone - PO DAILY [facility] Promethazine HCl 6.25 mg 04/09/17 17:29 Phenergan Liquid - PO DAILY PRN COUGH Tamsulosin HCl 0.4 mg 04/10/17 08:30 Flomax - PO DAILY@0830 [facility] Laboratory Results - last 24 hr 04/09/17 04/09/17 14:00 14:00 WBC 8.5 D RBC 3.89 L Hgb 12.2 Hct 36.8 MCV 94.7 MCH 31.5 MCHC 33.2 RDW 14.3 Plt Count 198 D MPV 8.0 Neutrophils % 86.9 H Lymphocytes % 6.9 L D Monocytes % 5.5 Eosinophils % 0.2 Basophils % 0.5 Sodium 141 Potassium 3.8 Chloride 101 Carbon Dioxide 32 Anion Gap 8 BUN 26 H Creatinine 0.8 Creat Clearance w eGFR > 60 Random Glucose 126 H D Calcium 8.1 L Total Bilirubin 0.5 D AST 22 D ALT 17 D Alkaline Phosphatase 47 Creatine Kinase 43 Troponin I 0.06 H Total Protein 5.5 L Albumin 2.6 L CXR - small left pleural effusion EKG NSr, QS in V3 different from prior, PVC, no acute ST-T changes ASSESSMENT AND PLAN: 81 yom with recently diagnosed stage IV prostate Ca on hormonal therapy, Parkinson's disease, HTN, recently diagnosed PMR with neg temporal artery biopsy and flu comes with worsening bilateral shoulder pain and borderline troponin elevation. -Elevated troponin -Bilateral shoulder pain -PMR on steroids -recent Acute influenza illness -Parkinson's disease -HTN -Recently diagnosed stage IV prostate Ca on hormonal therapy. Plan: Suspect bilateral shoulder symptoms worse recently with acute influenza illness. Continue home steroids, percocet and add lidocaine patch (helping patient in the ED). PT deion. Is planned for outpatient MRI, will defer further management to Dr. Haskins. Borderline troponin elevation with non specific EKG changes. Will place on telemetry and cycle troponins. 2D echo if ACS ruled out. Low suspicion currently. Currently shoulder/arm symptoms associated with pain with movements and hand/ wrist swelling that argues again cardiac etiology. Place on ASA 81 mg daily, check lipid panel. Continue tamiflu day 2 today. Continue home flomax/sinemet/statin and amlodipine. DVTPPX if inhouse > 24 hours. anticipate d/c in 24 hours if no cardiac concerns and symptoms improved. Plan discussed with patient and son at bedside in detail, all questions answered. total admit time spent 55 min.
[2017-04-09] MEDS ORDERED: oxyCODONE HCL 5 MG TABLET PO PRN (17:47)
[2017-04-09] MEDS ORDERED: ACETAMINOPHEN 325 MG TABLET (FP) PO PRN (17:47)
[2017-04-09] MEDS ORDERED: ATORVASTATIN CA 40 MG TABLET (FP) PO SCH (22:00)
[2017-04-09] MEDS ORDERED: LIDOCAINE PATCH REMOVAL MC SCH (22:00)
[2017-04-09] MEDS ORDERED: ATORVASTATIN CA 40 MG TABLET (FP) ONE (23:06)
[2017-04-09] MEDS ORDERED: CARBIDOPA/LEVODOPA 25/100 TABLET (FP) ONE (23:07)
[2017-04-09] MEDS: CARBIDOPA/LEVODOPA 25/100 TABLET (FP) PO SCH (23:10)
[2017-04-10] MEDS: CARBIDOPA/LEVODOPA 25/100 TABLET (FP) PO SCH (07:12)
[2017-04-10 07:52] LABS: HEMATOCRIT 38.2 % (35.4-49); HEMOGLOBIN 12.9 GM/dL (11.7-16.9); MCH 31.9 pg (25.7-33.7); MCHC 33.8 g/dl (32.0-35.9); MEAN CELL VOLUME 94.5 fl (80-96); MEAN PLT VOLUME 8.5 fl (7.5-11.1); PLATELET COUNT 217 K/MM3 (134-434); RBC 4.04 M/mm3 (4.00-5.60); RDW 13.7 % (11.9-15.9); WHITE BLOOD COUNT 6.9 K/mm3 (4.0-10.0)
[2017-04-10 08:29] LABS: ANION GAP 8 (8-16); BLOOD UREA NITROGEN 26 mg/dL (7-18); CALCIUM 8.3 mg/dL (8.5-10.1); CHLORIDE 102 mmol/L (98-107); CO2 31 mmol/L (21-32); CREATININE 0.8 mg/dL (0.7-1.3); GLUCOSE,RANDOM 82 mg/dL (74-106); MAGNESIUM 1.8 mg/dL (1.8-2.4); PHOSPHOROUS 2.9 mg/dL (2.5-4.9); POTASSIUM 3.6 mmol/L (3.5-5.1); SODIUM 141 mmol/L (136-145)
[2017-04-10] MEDS ORDERED: TAMSULOSIN HCL 0.4 MG CAP.ER.24H (FP) PO SCH (08:30)
--- NOTE | 2017-04-10 08:39 | PN ---
Physical Exam: SUBJECTIVE: Patient seen and examined by me this AM - Still complaining of BL shoulder pain. Concerned about making rheum appt at 3PM today. Has not received ECHO yet. Denies CP, SOB, SAENZ, ARAYA, f/c, n/v, cough. Still with LE edema BL. No dysuria, diarrhea. OBJECTIVE: Vital Signs Intake & Output 04/07/17 04/08/17 04/09/17 04/10/17 23:59 23:59 23:59 23:59 Weight 94.801 kg Period Temp Pulse Resp BP Sys/Valenzuela Pulse Ox Last 24 Hr 97.1 F-98.7 F 67-78 15-18 122-195/57-93 93-98 GENERAL: Elderly man, sitting in bed, A&Ox3, in NAD HEAD: Normal with no signs of trauma. EYES: Glasses. PERRL, extraocular movements intact, sclera anicteric, conjunctiva clear. No ptosis. ENT: Ears normal, nares patent, oropharynx clear without exudates, moist mucous membranes. NECK: Trachea midline, full range of motion, supple. No JVD or HJR. LUNGS: Breath sounds equal, clear to auscultation bilaterally, no wheezes, no crackles, no accessory muscle use. HEART: Regular rate and rhythm, S1, S2 without murmur, rub or gallop. ABDOMEN: Soft, nontender, nondistended, normoactive bowel sounds, no guarding, no rebound, no hepatosplenomegaly, no masses. EXTREMITIES: 2+ pulses, warm, well-perfused, BL 2+ edema to mid-calf, pitting. NEUROLOGICAL: Cranial nerves II through XII grossly intact. Normal speech, gait not observed. PSYCH: Normal mood, normal affect. SKIN: Warm, dry, normal turgor, no rashes or lesions noted Laboratory Results - last 24 hr CBC, BMP 04/10/17 06:30 04/09/17 04/09/17 04/09/17 14:00 14:00 20:15 WBC 8.5 D RBC 3.89 L Hgb 12.2 Hct 36.8 MCV 94.7 MCH 31.5 MCHC 33.2 RDW 14.3 Plt Count 198 D MPV 8.0 Neutrophils % 86.9 H Lymphocytes % 6.9 L D Monocytes % 5.5 Eosinophils % 0.2 Basophils % 0.5 Sodium 141 Potassium 3.8 Chloride 101 Carbon Dioxide 32 Anion Gap 8 BUN 26 H Creatinine 0.8 Creat Clearance w eGFR > 60 Random Glucose 126 H D Calcium 8.1 L Total Bilirubin 0.5 D AST 22 D ALT 17 D Alkaline Phosphatase 47 Creatine Kinase 43 41 Troponin I 0.06 H 0.07 H Total Protein 5.5 L Albumin 2.6 L TSH 0.48 Free T4 04/09/17 04/10/17 04/10/17 20:15 03:20 06:30 WBC 6.9 RBC 4.04 Hgb 12.9 Hct 38.2 MCV 94.5 MCH 31.9 MCHC 33.8 RDW 13.7 Plt Count 217 MPV 8.5 Neutrophils % Lymphocytes % Monocytes % Eosinophils % Basophils % Sodium Potassium Chloride Carbon Dioxide Anion Gap BUN Creatinine Creat Clearance w eGFR Random Glucose Calcium Total Bilirubin AST ALT Alkaline Phosphatase Creatine Kinase Troponin I < 0.02 D Total Protein Albumin TSH Free T4 0.96 04/10/17 06:30 WBC RBC Hgb Hct MCV MCH MCHC RDW Plt Count MPV Neutrophils % Lymphocytes % Monocytes % Eosinophils % Basophils % Sodium Potassium Chloride Carbon Dioxide Anion Gap BUN Creatinine Creat Clearance w eGFR Random Glucose Calcium Total Bilirubin AST ALT Alkaline Phosphatase Creatine Kinase Troponin I Cancelled Total Protein Albumin TSH Free T4 Active Medications Generic Name Dose Route Start Last Admin Trade Name Freq PRN Reason Stop Dose Admin Acetaminophen 325 mg 04/09/17 17:47 Tylenol - PO Q6H PRN PAIN LEVEL 1-5 Amlodipine Besylate 5 mg 04/10/17 10:00 Norvasc - PO DAILY [facility] Aspirin 81 mg 04/10/17 10:00 Asa - PO DAILY [facility] Atorvastatin Calcium 40 mg 04/09/17 22:00 04/09/17 23:09 Lipitor - PO 40 mg HS [facility] Administration Carbidopa/Levodopa 1 each 04/09/17 22:00 04/10/17 07:12 Sinemet 25/100 - PO 1 each TID [facility] Administration Hydrochlorothiazide 25 mg 04/10/17 10:00 Hctz - PO DAILY [facility] Miscellaneous 1 each 04/09/17 22:00 04/09/17 23:49 Lidoderm Patch Removal MC 1 each DAILY@2200 [facility] Administration Oseltamivir Phosphate 75 mg 04/10/17 10:00 Tamiflu - PO 04/15/17 09:59 DAILY [facility] Oxycodone HCl 5 mg 04/09/17 17:47 Roxicodone - PO Q6H PRN PAIN LEVEL 1 - 5 Prednisolone 50 mg 04/10/17 10:00 Prednisolone Unit Dose Cups PO DAILY [facility] Promethazine HCl 6.25 mg 04/09/17 17:29 Phenergan Liquid - PO DAILY PRN COUGH Tamsulosin HCl 0.4 mg 04/10/17 08:30 Flomax - PO DAILY@0830 [facility] No micro ECHO pending EKG 04/09 - NSR. rate of 70, QTC 464, NAD, No ST/TW changes, PVC noted CXR 04/09 - Small left pleural effusion ASSESSMENT/PLAN:
[2017-04-10] MEDS ORDERED: predniSONE 20 MG TABLET (UD) PO SCH (10:00)
[2017-04-10] MEDS ORDERED: OSELTAMIVIR PHOSPHATE 75 MG CAPSULE PO SCH (10:00)
[2017-04-10] MEDS ORDERED: ASPIRIN 81 MG CHEWABLE TABLETS PO SCH (10:00)
[2017-04-10] MEDS ORDERED: amLODIPine BESYLATE 5 MG TABLET (FP) PO SCH (10:00)
[2017-04-10] MEDS ORDERED: HYDROCHLOROTHIAZIDE 25 MG TABLET (FP) PO SCH (10:00)
[2017-04-10] MEDS ORDERED: PrednisoLONE 15 MG/5 ML UNIT-DOSE CUP PO SCH (10:00)
[2017-04-10 12:07] VITALS: BP 140/63; PULSE 74; TEMP 98
--- NOTE | 2017-04-10 12:20 | PN ---
Teaching Attending Note Name of Resident: Dez York ATTENDING PHYSICIAN STATEMENT I saw and evaluated the patient. I reviewed the resident's note and discussed the case with the resident. I agree with the resident's findings and plan as documented. SUBJECTIVE: patient seen and examined. Shoulder pain improved. No chest pain, palpitatons, dyspnea, dizziness. Overall no new events overnight. OBJECTIVE: Vital Signs Period Temp Pulse Resp BP Sys/Valenzuela Pulse Ox Last 24 Hr 97.1 F-98.7 F 67-78 15-24 122-195/57-93 93-98 Intake & Output 04/07/17 04/08/17 04/09/17 04/10/17 23:59 23:59 23:59 23:59 Weight 209 lb 209 lb general: sitting in bed no acute distress Musculoskeletal: improved ROM bilateral shoulder Chest: no rales or wheezing extremities: unchanged edema Home Medication List Medication Instructions Recorded Confirmed Type Amlodipine Besylate [Norvasc -] 5 mg PO DAILY 03/29/17 04/09/17 History Carbidopa/Levodopa 25/100 [Sinemet 1 each PO TID 03/29/17 04/09/17 History 25/100 -] Hydrochlorothiazide 25 mg PO DAILY 03/29/17 04/09/17 History Oxycodone HCl/Acetaminophen 1 tab PO Q6H PRN 03/29/17 04/09/17 History [Percocet 5-325 mg Tablet] Pravastatin Sodium [Pravachol (Nf)] 40 mg PO HS 03/29/17 04/09/17 History Prednisolone [Millipred] 40 mg PO DAILY 03/29/17 04/09/17 History Tamsulosin HCl [Flomax] 0.4 mg PO DAILY 03/29/17 04/09/17 History Oseltamivir Phosphate [Tamiflu] 75 mg PO DAILY 04/09/17 04/09/17 History Promethazine HCl [Phenergan Liquid 5 ml PO PRN PRN 04/09/17 04/09/17 History -] Active Medications Generic Name Dose Route Start Last Admin Trade Name Freq PRN Reason Stop Dose Admin Acetaminophen 325 mg 04/09/17 17:47 Tylenol - PO Q6H PRN PAIN LEVEL 1-5 Amlodipine Besylate 5 mg 04/10/17 10:00 04/10/17 11:38 Norvasc - PO Not Given DAILY [facility] Aspirin 81 mg 04/10/17 10:00 04/10/17 11:37 Asa - PO 81 mg DAILY [facility] Administration Atorvastatin Calcium 40 mg 04/09/17 22:00 04/09/17 23:09 Lipitor - PO 40 mg HS [facility] Administration Carbidopa/Levodopa 1 each 04/09/17 22:00 04/10/17 07:12 Sinemet 25/100 - PO 1 each TID [facility] Administration Hydrochlorothiazide 25 mg 04/10/17 10:00 04/10/17 11:38 Hctz - PO Not Given DAILY [facility] Miscellaneous 1 each 04/09/17 22:00 04/09/17 23:49 Lidoderm Patch Removal MC 1 each DAILY@2200 [facility] Administration Oseltamivir Phosphate 75 mg 04/10/17 10:00 04/10/17 11:38 Tamiflu - PO 04/15/17 09:59 Not Given DAILY [facility] Oxycodone HCl 5 mg 04/09/17 17:47 Roxicodone - PO Q6H PRN PAIN LEVEL 1 - 5 Prednisolone 50 mg 04/10/17 10:00 04/10/17 11:38 Prednisolone Unit Dose Cups PO Not Given DAILY [facility] Promethazine HCl 6.25 mg 04/09/17 17:29 Phenergan Liquid - PO DAILY PRN COUGH Tamsulosin HCl 0.4 mg 04/10/17 08:30 04/10/17 08:47 Flomax - PO 0.4 mg DAILY@0830 [facility] Administration Laboratory Results - last 24 hr 04/09/17 04/09/17 04/09/17 14:00 14:00 20:15 WBC 8.5 D RBC 3.89 L Hgb 12.2 Hct 36.8 MCV 94.7 MCH 31.5 MCHC 33.2 RDW 14.3 Plt Count 198 D MPV 8.0 Neutrophils % 86.9 H Lymphocytes % 6.9 L D Monocytes % 5.5 Eosinophils % 0.2 Basophils % 0.5 Sodium 141 Potassium 3.8 Chloride 101 Carbon Dioxide 32 Anion Gap 8 BUN 26 H Creatinine 0.8 Creat Clearance w eGFR > 60 Random Glucose 126 H D Calcium 8.1 L Phosphorus Magnesium Total Bilirubin 0.5 D AST 22 D ALT 17 D Alkaline Phosphatase 47 Creatine Kinase 43 41 Troponin I 0.06 H 0.07 H Total Protein 5.5 L Albumin 2.6 L Triglycerides Cholesterol Total LDL Cholesterol HDL Cholesterol TSH 0.48 Free T4 04/09/17 04/10/17 04/10/17 20:15 03:20 06:30 WBC 6.9 RBC 4.04 Hgb 12.9 Hct 38.2 MCV 94.5 MCH 31.9 MCHC 33.8 RDW 13.7 Plt Count 217 MPV 8.5 Neutrophils % Lymphocytes % Monocytes % Eosinophils % Basophils % Sodium Potassium Chloride Carbon Dioxide Anion Gap BUN Creatinine Creat Clearance w eGFR Random Glucose Calcium Phosphorus Magnesium Total Bilirubin AST ALT Alkaline Phosphatase Creatine Kinase Troponin I < 0.02 D Total Protein Albumin Triglycerides Cholesterol Total LDL Cholesterol HDL Cholesterol TSH Free T4 0.96 04/10/17 04/10/17 04/10/17 06:30 06:30 06:30 WBC RBC Hgb Hct MCV MCH MCHC RDW Plt Count MPV Neutrophils % Lymphocytes % Monocytes % Eosinophils % Basophils % Sodium 141 Potassium 3.6 Chloride 102 Carbon Dioxide 31 Anion Gap 8 BUN 26 H Creatinine 0.8 Creat Clearance w eGFR Random Glucose 82 D Calcium 8.3 L Phosphorus 2.9 Magnesium 1.8 Total Bilirubin AST ALT Alkaline Phosphatase Creatine Kinase Troponin I 0.07 H D Cancelled Total Protein Albumin Triglycerides 64 Cholesterol 194 Total LDL Cholesterol 98 HDL Cholesterol 82 H TSH Free T4 ASSESSMENT AND PLAN: 81 yom with recently diagnosed stage IV prostate Ca on hormonal therapy, Parkinson's disease, HTN, recently diagnosed PMR with neg temporal artery biopsy and flu comes with worsening bilateral shoulder pain and borderline troponin elevation. -Elevated troponin -Bilateral shoulder pain -PMR on steroids -recent Acute influenza illness -Parkinson's disease -HTN -Recently diagnosed stage IV prostate Ca on hormonal therapy. Plan: no events, ACS ruled out. Troponin overall non concerning and unchanged. patient with no new concerns or symptoms. Follow up 2D echo, if non concerning, outpatient stress test. ASA 81 mg . LIpid panel noted. Tamiflu day 3/5. Shoulder pain improved. Continue prednisolone. PLans to see Dr. Haskins today, plan for d/c today with outpatient follow up with Dr. Haskins if 2D echo non concerning and no new events. Discussed with patient in detail, all questions answered.
--- NOTE | 2017-04-10 13:45 | DS ---
Physical Exam: SUBJECTIVE: Patient seen and examined by me this AM - Still complaining of BL shoulder pain. Concerned about making rheum appt at 3PM today. Has not received ECHO yet. Denies CP, SOB, SAENZ, ARAYA, f/c, n/v, cough. Still with LE edema BL. No dysuria, diarrhea. OBJECTIVE: Vital Signs Intake & Output 04/07/17 04/08/17 04/09/17 04/10/17 23:59 23:59 23:59 23:59 Weight 94.801 kg 94.801 kg Period Temp Pulse Resp BP Sys/Valenzuela Pulse Ox Last 24 Hr 97.1 F-98.7 F 67-74 15-24 138-195/63-93 93-98 PHYSICAL EXAM GENERAL: Elderly man, sitting in bed, A&Ox3, in NAD HEAD: Normal with no signs of trauma. EYES: Glasses. PERRL, extraocular movements intact, sclera anicteric, conjunctiva clear. No ptosis. ENT: Ears normal, nares patent, oropharynx clear without exudates, moist mucous membranes. NECK: Trachea midline, full range of motion, supple. No JVD or HJR. LUNGS: Breath sounds equal, clear to auscultation bilaterally, no wheezes, no crackles, no accessory muscle use. HEART: Regular rate and rhythm, S1, S2 without murmur, rub or gallop. ABDOMEN: Soft, nontender, nondistended, normoactive bowel sounds, no guarding, no rebound, no hepatosplenomegaly, no masses. EXTREMITIES: 2+ pulses, warm, well-perfused, BL 2+ edema to mid-calf, pitting. NEUROLOGICAL: Cranial nerves II through XII grossly intact. Normal speech, gait not observed. PSYCH: Normal mood, normal affect. SKIN: Warm, dry, normal turgor, no rashes or lesions noted LABS Laboratory Results - last 24 hr CBC, BMP 04/10/17 06:30 04/10/17 06:30 04/09/17 04/09/17 04/09/17 14:00 14:00 20:15 WBC 8.5 D RBC 3.89 L Hgb 12.2 Hct 36.8 MCV 94.7 MCH 31.5 MCHC 33.2 RDW 14.3 Plt Count 198 D MPV 8.0 Neutrophils % 86.9 H Lymphocytes % 6.9 L D Monocytes % 5.5 Eosinophils % 0.2 Basophils % 0.5 Sodium 141 Potassium 3.8 Chloride 101 Carbon Dioxide 32 Anion Gap 8 BUN 26 H Creatinine 0.8 Creat Clearance w eGFR > 60 Random Glucose 126 H D Calcium 8.1 L Phosphorus Magnesium Total Bilirubin 0.5 D AST 22 D ALT 17 D Alkaline Phosphatase 47 Creatine Kinase 43 41 Troponin I 0.06 H 0.07 H Total Protein 5.5 L Albumin 2.6 L Triglycerides Cholesterol Total LDL Cholesterol HDL Cholesterol TSH 0.48 Free T4 04/09/17 04/10/17 04/10/17 20:15 03:20 06:30 WBC 6.9 RBC 4.04 Hgb 12.9 Hct 38.2 MCV 94.5 MCH 31.9 MCHC 33.8 RDW 13.7 Plt Count 217 MPV 8.5 Neutrophils % Lymphocytes % Monocytes % Eosinophils % Basophils % Sodium Potassium Chloride Carbon Dioxide Anion Gap BUN Creatinine Creat Clearance w eGFR Random Glucose Calcium Phosphorus Magnesium Total Bilirubin AST ALT Alkaline Phosphatase Creatine Kinase Troponin I < 0.02 D Total Protein Albumin Triglycerides Cholesterol Total LDL Cholesterol HDL Cholesterol TSH Free T4 0.96 04/10/17 04/10/17 04/10/17 06:30 06:30 06:30 WBC RBC Hgb Hct MCV MCH MCHC RDW Plt Count MPV Neutrophils % Lymphocytes % Monocytes % Eosinophils % Basophils % Sodium 141 Potassium 3.6 Chloride 102 Carbon Dioxide 31 Anion Gap 8 BUN 26 H Creatinine 0.8 Creat Clearance w eGFR Random Glucose 82 D Calcium 8.3 L Phosphorus 2.9 Magnesium 1.8 Total Bilirubin AST ALT Alkaline Phosphatase Creatine Kinase Troponin I 0.07 H D Cancelled Total Protein Albumin Triglycerides 64 Cholesterol 194 Total LDL Cholesterol 98 HDL Cholesterol 82 H TSH Free T4 No micro ECHO pending EKG 04/09 - NSR. rate of 70, QTC 464, NAD, No ST/TW changes, PVC noted CXR 04/09 - Small left pleural effusion ECHO 04/10 - Biatrial enlargement, normal LV ejection fraction, LV moderately dilated, mitral/pulmonic valves/RV not well visualized No consults HOSPITAL COURSE: 81 yo M with PMH of polymyalgia rheumatica with recent flare, Flu + on tamiflu day 2, HTN, HLD, and recently dx prostate CA, who presented with worsening b/l shoulder pain and L wrist pain in the setting of 3 weeks on steroids for [place] flare. ED course notable for borderline elevated Trop 0.06 and EKG with age- indeterminate Q waves in V3, as well as CXR w/ small pleural effusion. Pt with no CP, SOB, PND, SAENZ, claudications, however had been complaining of BL LE edema and slight decreased in exercise tolerance over past few weeks. Pt given ASA and restarted on home medications. Repeat trops notable for 0.07 -> 0.02 -> 0.07. Echo w/ limited technical quality, however biatrial enlargement and moderate LV dilatation. Pt discharged with plan for followup with PCP on need for outpt cardiac stress test. Date of Admission:04/09/17 Date of Discharge: 04/10/17 Pt medical stable and cleared for discharge with follow-up with PCP in one week to discuss possible outpatient cardiac stress test due to mildly elevated troponins on admission. Minutes to complete discharge: 35 Discharge Summary Reason For Visit: ELEVATED TROPONIN LEVEL Current Active Problems HTN (hypertension) (Acute) Hyperlipidemia (Acute) Parkinson disease (Acute) Polymyalgia rheumatica (Acute) Prostate CA (Acute) Troponin level elevated (Acute) Condition: Stable - Instructions Diet, Activity, Other Instructions: You were treated for shoulder pain and slightly elevated cardiac enzymes during your stay at [facility]. Medications: Please continue taking all your medications as previously prescribed. Follow-up: Please follow-up with your primary care provider in one week to discuss receiving a cardiac stress test as an outpatient and for further management of your home medication regimen. Please return to the hospital if you have any of the following symptoms: - Persistent chest pain/tightness - Worsening shortness of breath - New pain in you jaw, neck or left arm - Any new or concerning symptoms Referrals: Ry Celestin [Primary Care Provider] - 1 Week Anam Brown MD [Staff Physician] - 04/10/17 Disposition: HOME - Home Medications Comprehensive Discharge Medication List: Ambulatory Orders Amlodipine Besylate [Norvasc -] 5 mg PO DAILY 03/29/17 Carbidopa/Levodopa 25/100 [Sinemet 25/100 -] 1 each PO TID 03/29/17 Hydrochlorothiazide 25 mg PO DAILY 03/29/17 Oxycodone HCl/Acetaminophen [Percocet 5-325 mg Tablet] 1 tab PO Q6H PRN Pravastatin Sodium [Pravachol -] 40 mg PO HS 03/29/17 Prednisolone [Millipred] 40 mg PO DAILY 03/29/17 Tamsulosin HCl [Flomax] 0.4 mg PO DAILY 03/29/17 Oseltamivir Phosphate [Tamiflu] 75 mg PO DAILY 04/09/17 Promethazine HCl [Phenergan Plain 6.25 MG/5 ML -] 5 ml PO PRN PRN 04/09/17 This patient is new to me today: Yes Date on this admission: 04/10/17 Emergency Visit: Yes ED Registration Date: 04/09/17 Care time: The patient presented to the Emergency Department on the above date and was hospitalized for further evaluation of their emergent condition. Critical Care patient: No - Discharge Referral Referred to [facility] Med [facility].: No
== END 2017-04-10 13:30 | disposition home or self-care (01) ==
LOC: JER 11:38 → JERBED 17:15 → J2W 04-10 09:17
PROVIDERS: ADMIT Hospitalist; ATTEND Hospitalist
PROC: 3E033GC Introduction of Other Therapeutic Substance into Peripheral Vein, Percutaneous Approach (ICD-10-PCS; principal; 2017-04-09)
PROC: 3E0337Z Introduction of Electrolytic and Water Balance Substance into Peripheral Vein, Percutaneous Approach (ICD-10-PCS; 2017-04-09)
DX: R77.8 Other specified abnormalities of plasma proteins (principal); I10 Essential (primary) hypertension; E78.5 Hyperlipidemia, unspecified; C61 Malignant neoplasm of prostate; Z87.891 Personal history of nicotine dependence; M25.511 Pain in right shoulder; M25.512 Pain in left shoulder; J11.1 Influenza due to unidentified influenza virus with other respiratory manifestations; G20 Parkinson's disease; M35.3 Polymyalgia rheumatica
CPT/HCPCS: 36415; 71045-TC; 80048; 80053; 80061; 82550; 83721; 83735; 84100; 84439; 84443; 84484; 85025; 85027; 93306-TC; 96374; 99284-25; G0378

== ENCOUNTER 2017-06-21 09:34 | Observation (INO) | payer BC ==
[2017-06-21 09:41] VITALS: BMI 26.1
[2017-06-21 11:05] LABS: BASO % 1.1 % (0-2.0); EOS % 8.4 % (0-4.5); HEMATOCRIT 33.5 % (35.4-49); HEMOGLOBIN 11.6 GM/dL (11.7-16.9); LYMPH % 9.3 % (8-40); MCH 33.4 pg (25.7-33.7); MCHC 34.5 g/dl (32.0-35.9); MEAN CELL VOLUME 96.9 fl (80-96); MEAN PLT VOLUME 7.9 fl (7.5-11.1); MONO % 5.6 % (3.8-10.2); NEUT % 75.6 % (42.8-82.8); PLATELET COUNT 289 K/MM3 (134-434); RBC 3.46 M/mm3 (4.00-5.60); RDW 15.5 % (11.9-15.9); WHITE BLOOD COUNT 9.1 K/mm3 (4.0-10.0)
[2017-06-21 11:07] LABS: URINE APPEARANCE CLOUDY; URINE BILIRUBIN NEGATIVE (<2.0 mg/dL); URINE BLOOD NEGATIVE (NEGATIVE); URINE COLOR YELLOW; URINE GLUCOSE (UA) NEGATIVE (NEGATIVE); URINE KETONE NEGATIVE (NEGATIVE); URINE LEUK ESTERASE NEGATIVE (NEGATIVE); URINE NITRITE NEGATIVE (NEGATIVE); URINE PROTEIN NEGATIVE (NEGATIVE); URINE UROBILINOGEN NEGATIVE mg/dL (0.2-1.0)
[2017-06-21 11:26] LABS: ALBUMIN 3.2 g/dl (3.4-5.0); ANION GAP 6 (8-16); BILIRUBIN,TOTAL 0.9 mg/dL (0.2-1.0); BLOOD UREA NITROGEN 20 mg/dL (7-18); CALCIUM 8.6 mg/dL (8.5-10.1); CHLORIDE 104 mmol/L (98-107); CO2 30 mmol/L (21-32); CREATININE 0.7 mg/dL (0.7-1.3); GLUCOSE,RANDOM 98 mg/dL (74-106); POTASSIUM 3.7 mmol/L (3.5-5.1); SGOT/AST 32 U/L (15-37); SGPT/ALT 30 U/L (12-78); SODIUM 140 mmol/L (136-145)
[2017-06-21 11:28] LABS: ALK PHOS 61 U/L (45-117)
[2017-06-21 11:34] LABS: N-TERMINAL BNP 2257.5 pg/ml (5-450)
--- NOTE | 2017-06-21 12:16 | PDOC ---
History of Present Illness - General History Source: Patient Exam Limitations: No Limitations - History of Present Illness Initial Comments: 06/21/17 12:39 The patient is a 81 year old male, with a significant past medical history of hypertension, hyperlipidemia, parkinsons, polymyalgia, and prostate cancer( stage IV to lymph nodes with bone scan negative, s/p hormone injection(gained 20 lbs since) and starting radiation in 2 weeks), who presents to the emergency department with increased lethargy since yesterday. Patient reports associated loss of appetite and lightheadedness. Patient reports visiting his PCP Dr. Celestin, where he had blood work done. Per Dr. Celestin patient is normally very active and vibrant, but lately has not been at his baseline, so he sent him to the ER for further evaluation. Patient reports he has been increasingly lethargic over the past year, but states his symptoms worsened yesterday. Patient reports he has been unable to sleep. As per daughter patient has a history of constipation, and was placed on magnesium citrate 1 week ago. Daughter states patient does not drink much water. Patient denies any dysuria, hematuria, frequency, or urgency. He denies any abdominal pain, nausea, or vomiting. He denies any fever, chills, cough, headache, or dizziness. He denies any chest pain, shortness of breath, diaphoresis, or palpitations. He denies any recent travel or sick contacts. Allergies: NKDA Past Surgical History: None reported Social History: Former smoker. No ETOH or recreational drug use. PCP: Dr. Celestin <Concepcion Shi - Last Filed: 06/21/17 13:25> <Carmela Hernadnez - Last Filed: 06/22/17 02:36> - General Chief Complaint: Weakness Stated Complaint: PARKINSON'S DIS, WEAKNESS Time Seen by Provider: 06/21/17 09:49 Past History <Concepcion Shi - Last Filed: 06/21/17 13:25> - Past Medical History Anemia: No Asthma: No Cancer: Yes (DX WITH PROSTAE CA,STAGE 4) Cardiac Disorders: Yes (ENLARGED AORTIC ANERYSM) CVA: No COPD: No CHF: No DVT: No Dementia: No Diabetes: No GI Disorders: No Disorders: No HTN: Yes Hypercholesterolemia: Yes Liver Disease: No Seizures: No Thyroid Disease: No Other medical history: Parkinson's dis - Immunization History Immunization Up to Date: Yes - Suicide/Smoking/Psychosocial Hx Smoking History: Never smoked Have you smoked in the past 12 months: No If you are a former smoker, when did you quit?: 25 yrs ago Information on smoking cessation initiated: No Hx Alcohol Use: No Drug/Substance Use Hx: No Substance Use Type: None Hx Substance Use Treatment: No <Nassef,Yomna - Last Filed: 06/22/17 02:36> - Past Medical History Allergies/Adverse Reactions: Allergies Allergy/AdvReac Type Severity Reaction Status Date / Time No Known Allergies Allergy Verified 06/21/17 09:40 Home Medications: Ambulatory Orders Amlodipine Besylate [Norvasc -] 5 mg PO DAILY 03/29/17 Carbidopa/Levodopa 25/100 [Sinemet 25/100 -] 1 each PO TID 03/29/17 Hydrochlorothiazide 12.5 mg PO DAILY 03/29/17 Oxycodone HCl/Acetaminophen [Percocet 5-325 mg Tablet] 1 tab PO Q6H PRN Pravastatin Sodium [Pravachol -] 40 mg PO HS 03/29/17 Prednisolone [Millipred] 10 mg PO BID 03/29/17 Tamsulosin HCl [Flomax] 0.4 mg PO BID 03/29/17 Folic Acid 1 mg PO DAILY 06/21/17 Methotrexate [Mexate -] 7.5 mg PO Q7D 06/21/17 Pramipexole Di-HCl [Mirapex] 0.5 mg PO HS 06/21/17 Review of Systems - Review of Systems Able to Perform ROS?: Yes Comments:: 06/21/17 12:40 GENERAL/CONSTITUTIONAL: +Lethargy. No fever or chills. No weakness. HEAD, EYES, EARS, NOSE AND THROAT: No change in vision. No ear pain or discharge. No sore throat. GASTROINTESTINAL: No nausea, vomiting, diarrhea or constipation. GENITOURINARY: No dysuria, frequency, or change in urination. CARDIOVASCULAR: No chest pain or shortness of breath. RESPIRATORY: No cough, wheezing, or hemoptysis. MUSCULOSKELETAL: No joint or muscle swelling or pain. No neck or back pain. SKIN: No rash NEUROLOGIC: +Lightheadedness. No headache, vertigo, loss of consciousness, or change in strength/sensation. ENDOCRINE: +Decreased appetite, weight gain from hormone injections. No increased thirst. HEMATOLOGIC/LYMPHATIC: No anemia, easy bleeding, or history of blood clots. ALLERGIC/IMMUNOLOGIC: No hives or skin allergy. <Concepcion Shi - Last Filed: 06/21/17 13:25> *Physical Exam - Vital Signs Last Vital Signs Temp Pulse Resp BP Pulse Ox 97.5 F L 83 19 153/70 95 06/21/17 09:37 06/21/17 09:37 06/21/17 09:37 06/21/17 09:37 06/21/17 09:37 - Physical Exam Comments: 06/21/17 12:40 GENERAL: Awake and fully oriented, in no acute distress. Appears lethargic but alert HEAD: No signs of trauma EYES: PERRLA, EOMI, sclera anicteric, conjunctiva clear ENT: Auricles normal inspection, hearing grossly normal, nares patent, oropharynx clear without exudates. Moist mucosa NECK: Normal ROM, supple, no lymphadenopathy, JVD, or masses LUNGS: Breath sounds equal, clear to auscultation bilaterally. No wheezes, and no crackles HEART: Regular rate and rhythm, normal S1 and S2, no murmurs, rubs or gallops ABDOMEN: Soft, nontender, normoactive bowel sounds. No guarding, no rebound. No masses EXTREMITIES: Right foot drop. Normal range of motion, no edema. No clubbing or cyanosis. No cords, erythema, or tenderness BACK: No midline spinal tenderness in cervical/thoracic/lumbar region NEUROLOGICAL: Pill rolling tremor. Normal speech, cranial nerves intact, negative pronator drift, 5/5 strength in all 4 extremities, normal sensation to light touch in all 4 extremities, normal cerebellar exam, normal reflexes and tone SKIN: Warm, Dry, normal turgor, no rashes or lesions noted. <Concepcion Shi - Last Filed: 06/21/17 13:25> - Vital Signs Last Vital Signs Temp Pulse Resp BP Pulse Ox 97.5 F L 83 19 153/70 95 06/21/17 09:37 06/21/17 09:37 06/21/17 09:37 06/21/17 09:37 06/21/17 09:37 <Carmela Hernandez - Last Filed: 06/22/17 02:36> Heart Score/ECG Review #1 06/22/17 02:36 EKG today, compared to EKG from 3 months ago reveals newly inverted T waves in lateral leads v4-v6. No EFFIE. <Carmela Hernandez - Last Filed: 06/22/17 02:36> ED Treatment Course - LABORATORY CBC & Chemistry Diagram: 06/21/17 10:50 06/21/17 10:50 - ADDITIONAL ORDERS Additional order review: Laboratory Results 06/21/17 06/21/17 06/21/17 10:50 10:50 10:38 Sodium 140 Potassium 3.7 Chloride 104 Carbon Dioxide 30 Anion Gap 6 L BUN 20 H D Creatinine 0.7 Creat Clearance w eGFR > 60 Random Glucose 98 Calcium 8.6 Magnesium 2.0 Total Bilirubin 0.9 D AST 32 D ALT 30 D Alkaline Phosphatase 61 D Troponin I 0.06 H B-Natriuretic Peptide 2257.50 H Total Protein 6.0 L Albumin 3.2 L D TSH Cancelled 1.49 D Urine Color Urine Appearance Urine pH Ur Specific Upper Tract Urine Protein Urine Glucose (UA) Urine Ketones Urine Blood Urine Nitrite Urine Bilirubin Urine Urobilinogen Ur Leukocyte Esterase 06/21/17 10:38 Sodium Potassium Chloride Carbon Dioxide Anion Gap BUN Creatinine Creat Clearance w eGFR Random Glucose Calcium Magnesium Total Bilirubin AST ALT Alkaline Phosphatase Troponin I B-Natriuretic Peptide Total Protein Albumin TSH Urine Color Yellow Urine Appearance Cloudy Urine pH 7.0 Ur Specific Upper Tract 1.012 Urine Protein Negative Urine Glucose (UA) Negative Urine Ketones Negative Urine Blood Negative Urine Nitrite Negative Urine Bilirubin Negative Urine Urobilinogen Negative Ur Leukocyte Esterase Negative 06/21/17 10:50 RBC 3.46 L MCV 96.9 H MCHC 34.5 RDW 15.5 D MPV 7.9 Neutrophils % 75.6 Lymphocytes % 9.3 D Monocytes % 5.6 Eosinophils % 8.4 H D Basophils % 1.1 - RADIOLOGY Radiograph Interpretation: 06/21/17 13:25 EXAM: Head CT INTERPRETED BY: Dr. Alvares REVIEWED BY: Dr. Hernandez IMPRESSION: No CT evidence of acute intracranial pathology. <Concepcion Shi - Last Filed: 06/21/17 13:25> - LABORATORY CBC & Chemistry Diagram: 06/21/17 10:50 06/21/17 10:50 - ADDITIONAL ORDERS Additional order review: Laboratory Results 06/21/17 06/21/17 06/21/17 10:50 10:50 10:38 Sodium 140 Potassium 3.7 Chloride 104 Carbon Dioxide 30 Anion Gap 6 L BUN 20 H D Creatinine 0.7 Creat Clearance w eGFR > 60 Random Glucose 98 Calcium 8.6 Magnesium 2.0 Total Bilirubin 0.9 D AST 32 D ALT 30 D Alkaline Phosphatase 61 D Troponin I 0.06 H B-Natriuretic Peptide 2257.50 H Total Protein 6.0 L Albumin 3.2 L D TSH Cancelled 1.49 D Urine Color Urine Appearance Urine pH Ur Specific Upper Tract Urine Protein Urine Glucose (UA) Urine Ketones Urine Blood Urine Nitrite Urine Bilirubin Urine Urobilinogen Ur Leukocyte Esterase 06/21/17 10:38 Sodium Potassium Chloride Carbon Dioxide Anion Gap BUN Creatinine Creat Clearance w eGFR Random Glucose Calcium Magnesium Total Bilirubin AST ALT Alkaline Phosphatase Troponin I B-Natriuretic Peptide Total Protein Albumin TSH Urine Color Yellow Urine Appearance Cloudy Urine pH 7.0 Ur Specific Upper Tract 1.012 Urine Protein Negative Urine Glucose (UA) Negative Urine Ketones Negative Urine Blood Negative Urine Nitrite Negative Urine Bilirubin Negative Urine Urobilinogen Negative Ur Leukocyte Esterase Negative 06/21/17 10:50 RBC 3.46 L MCV 96.9 H MCHC 34.5 RDW 15.5 D MPV 7.9 Neutrophils % 75.6 Lymphocytes % 9.3 D Monocytes % 5.6 Eosinophils % 8.4 H D Basophils % 1.1 - RADIOLOGY Radiology Studies Ordered: Category Date Time Status HEAD CT WITHOUT CONTRAST [CT] Stat CT Scan 06/21/17 10:47 Ordered CHEST X-RAY PORTABLE* [RAD] Stat Radiology 06/21/17 10:36 Completed <Carmela Hernandez - Last Filed: 06/22/17 02:36> Medical Decision Making - Medical Decision Making 06/21/17 12:19 EXAM: CXR INTERPRETED BY: Dr. Alvares REVIEWED BY: Dr. Hernandez IMPRESSION: No acute lung infiltrates First call to Dr. Celestin at 10:38. Case discussed at this time. Dr Celestin ( ) <Concepcion Shi - Last Filed: 06/21/17 13:25> - Medical Decision Making 06/21/17 13:57 81-year-old male with a history of Parkinson's disease, polymyalgia rheumatica, prostate ca presents emergency Department with lethargy, insomnia, poor by mouth intake. Vitals with elevated blood pressure, otherwise within normal limits. Exam with 1+ lower extremity pitting edema and right greater than left pill-rolling tremor. Labs remarkable for BNP in the 2000s and mildly elevated troponin 0.06. Remainder of blood work, chest x-ray, CT head within normal limits. No previous BNP to compare. Patient continues to complain of feeling generally weak and unwell. We'll admit the patient for cardiac workup. Case discussed with resident Dr. Barcenas, pt admitted to Dr. Dumont under tele obs. Case discussed in detail with admitting physician including history, physical exam and ancillary studies. Admitting physician has assumed care for the patient, will follow all pending diagnostics and will complete the evaluation and treatment. <Carmela Hernandez - Last Filed: 06/22/17 02:36> *DC/Admit/Observation/Transfer - Attestations Scribe Attestion: 06/21/17 12:20 Documentation prepared by Concepcion Shi, acting as medical auditor for Carmela Hernandez MD. <Concepcion Shi - Last Filed: 06/21/17 13:25> - Discharge Dispostion Admit: Yes - Attestations Physician Attestion: 06/21/17 14:01 I, Dr. Carmela Hernandez MD, attest that this document has been prepared under my direction and personally reviewed by me in its entirety. I further attest, that it accurately reflects all work, treatment, procedures and medical decision -making performed by me. <Carmela Hernandez - Last Filed: 06/22/17 02:36> Diagnosis at time of Disposition: Troponin level elevated - Discharge Dispostion Condition at time of disposition: Stable
--- NOTE | 2017-06-21 13:34 | HP ---
CHIEF COMPLAINT: PCP: Dr Celestin Neurologist: Dr. Bender HISTORY OF PRESENT ILLNESS: Patient is an a 81 year old male was sent from his PCP's office for evaluation of lethargy. As per the patient, he hasn't been feeling well for a the past 2-3 days, has been feeling weak, tired, poor oral intake, disturbed sleep. Complaints of mild headache, on/off, generalized weakness, generalized bone pain. Denies LOC, trauma, tingling, numbness, any focal neurological deficits, chest pain, sob, cough, palpitation, abdominal pain, nausea or vomiting. Patient had constipation 2 weeks ago for which he was given medication, last bowel movement was 2 days ago. Bladder habit normal. Has chronic increased frequency of urination, no dysuria or hematuria. Sleep/Appetite decreased since 2-3 days. At baseline uses cane to walk, is independent, drives around. ED physician mentions she spoke with the PCP who said patient looked lethargic, normally he is an active person, drives on his own but today looked very tired which is an acute change. Pt has a h/o prostate cancer (Stage IV) completed hormonal injections (last one was 2 weeks ago), radiation is scheduled in 2 weeks by his oncologist. No chemotherapy. ER course was notable for: (1) Afebrile, hemodynamically stable, no leukocytosis (2) Head CT negative for any acute pathology, CXR- No acute pathology (3) None Recent Travel: None PAST MEDICAL HISTORY: hypertension, hyperlipidemia, parkinsons, polymyalgia, and prostate cancer(stage IV to lymph nodes with bone scan negative, s/p hormone injection(gained 20 lbs since) and starting radiation in 2 weeks) PAST SURGICAL HISTORY: prostate surgery 20 yrs ago. Social History: Smoking: Quit 25 yrs ago; past 10 pack year history Alcohol: Denies Drugs: Denies Family History: Non contributory Allergies No Known Allergies Allergy (Verified 06/21/17 09:40) HOME MEDICATIONS: Home Medications Medication Instructions Recorded Amlodipine Besylate [Norvasc -] 5 mg PO DAILY 03/29/17 Carbidopa/Levodopa 25/100 [Sinemet 1 each PO TID 03/29/17 25/100 -] Hydrochlorothiazide 12.5 mg PO DAILY 03/29/17 Oxycodone HCl/Acetaminophen 1 tab PO Q6H PRN 03/29/17 [Percocet 5-325 mg Tablet] Pravastatin Sodium [Pravachol -] 40 mg PO HS 03/29/17 Prednisolone [Millipred] 10 mg PO BID 03/29/17 Tamsulosin HCl [Flomax] 0.4 mg PO BID 03/29/17 Folic Acid 1 mg PO DAILY 06/21/17 Methotrexate [Mexate -] 7.5 mg PO Q7D 06/21/17 Pramipexole Di-HCl [Mirapex] 0.5 mg PO HS 06/21/17 REVIEW OF SYSTEMS CONSTITUTIONAL: Absent: fever, chills, diaphoresis, generalized weakness, malaise, loss of appetite, weight change HEENT: Absent: rhinorrhea, nasal congestion, throat pain, throat swelling, difficulty swallowing, mouth swelling, ear pain, eye pain, visual changes CARDIOVASCULAR: Absent: chest pain, syncope, palpitations, irregular heart rate, lightheadedness , peripheral edema RESPIRATORY: Absent: cough, shortness of breath, dyspnea with exertion, orthopnea, wheezing, stridor, hemoptysis GASTROINTESTINAL: Absent: abdominal pain, abdominal distension, nausea, vomiting, diarrhea, constipation, melena, hematochezia GENITOURINARY: Absent: dysuria, frequency, urgency, hesitancy, hematuria, flank pain, genital pain MUSCULOSKELETAL: Absent: myalgia, arthralgia, joint swelling, back pain, neck pain SKIN: Absent: rash, itching, pallor HEMATOLOGIC/IMMUNOLOGIC: Absent: easy bleeding, easy bruising, lymphadenopathy, frequent infections ENDOCRINE: Absent: unexplained weight gain, unexplained weight loss, heat intolerance, cold intolerance NEUROLOGIC: Absent: headache, focal weakness or paresthesias, dizziness, unsteady gait, seizure, mental status changes, bladder or bowel incontinence PSYCHIATRIC: Absent: anxiety, depression, suicidal or homicidal ideation, hallucinations. PHYSICAL EXAMINATION Vital Signs - 24 hr 06/21/17 09:37 Temperature 97.5 F L Pulse Rate 83 Respiratory 19 Rate Blood Pressure 153/70 O2 Sat by Pulse 95 Oximetry (%) GENERAL: Elderly male, Awake, alert, and fully oriented, in no acute distress. HEAD: Normal with no signs of trauma. EYES: EOM intact, no pallor or icterus. EARS, NOSE, THROAT: Ears normal. Dry mucous membranes. NECK: Supple. LUNGS: B/L Breath sounds equal, clear to auscultation bilaterally. No wheezes, and no crackles. HEART: Regular rate and rhythm, normal S1 and S2 with soft systolic murmur. ABDOMEN: Soft, nontender, not distended, normoactive bowel sounds, no guarding, no rebound, no masses. No hepatomegaly or splenomegaly. MUSCULOSKELETAL: Normal range of motion at all joints. No bony deformities or tenderness. No CVA tenderness. UPPER EXTREMITIES: 2+ pulses, warm, well-perfused. No cyanosis. No clubbing. No peripheral edema. LOWER EXTREMITIES: 2+ pulses, warm, well-perfused. No calf tenderness. B/L pitting trace edema. NEUROLOGICAL: No facial droop, masked face, power 5/5 in all extremities, Cranial nerves II-XII intact. Normal speech. Gait not observed, resting tremors +. PSYCHIATRIC: Cooperative. Good eye contact. Appropriate mood and affect. SKIN: Warm, dry, normal turgor, no rashes or lesions noted, normal capillary refill. Laboratory Results - last 24 hr 06/21/17 06/21/17 06/21/17 10:38 10:38 10:50 WBC 9.1 D RBC 3.46 L Hgb 11.6 L D Hct 33.5 L MCV 96.9 H MCH 33.4 MCHC 34.5 RDW 15.5 D Plt Count 289 D MPV 7.9 Neutrophils % 75.6 Lymphocytes % 9.3 D Monocytes % 5.6 Eosinophils % 8.4 H D Basophils % 1.1 Sodium Potassium Chloride Carbon Dioxide Anion Gap BUN Creatinine Creat Clearance w eGFR Random Glucose Calcium Magnesium Total Bilirubin AST ALT Alkaline Phosphatase Troponin I B-Natriuretic Peptide 2257.50 H Total Protein Albumin TSH 1.49 D Urine Color Yellow Urine Appearance Cloudy Urine pH 7.0 Ur Specific [place] 1.012 Urine Protein Negative Urine Glucose (UA) Negative Urine Ketones Negative Urine Blood Negative Urine Nitrite Negative Urine Bilirubin Negative Urine Urobilinogen Negative Ur Leukocyte Esterase Negative 06/21/17 06/21/17 10:50 10:50 WBC RBC Hgb Hct MCV MCH MCHC RDW Plt Count MPV Neutrophils % Lymphocytes % Monocytes % Eosinophils % Basophils % Sodium 140 Potassium 3.7 Chloride 104 Carbon Dioxide 30 Anion Gap 6 L BUN 20 H D Creatinine 0.7 Creat Clearance w eGFR > 60 Random Glucose 98 Calcium 8.6 Magnesium 2.0 Total Bilirubin 0.9 D AST 32 D ALT 30 D Alkaline Phosphatase 61 D Troponin I 0.06 H B-Natriuretic Peptide Total Protein 6.0 L Albumin 3.2 L D TSH Cancelled Urine Color Urine Appearance Urine pH Ur Specific [place] Urine Protein Urine Glucose (UA) Urine Ketones Urine Blood Urine Nitrite Urine Bilirubin Urine Urobilinogen Ur Leukocyte Esterase ASSESSMENT/PLAN: Patient is an a 81 year old male with past medical history of hypertension, hyperlipidemia, parkinsons, polymyalgia, and prostate cancer(stage IV to lymph nodes with bone scan negative, s/p hormone injection(gained 20 lbs since) and starting radiation in 2 weeks was sent from his PCP's office for evaluation of lethargy. # Lethargy likely secondary to poor oral intake and likely worsening of Parkinson's c/o lethargy and poor oral intake x 2-3 days associated with generalized weakness and bone pain On arrival, he was afebrile, hemodynamically stable, no leukocytosis Admit in Med-Surg, Observation D5-1/2 NS @ 75 mls.hr Tylenol for bone pain, to give Oxy/Tyelnol if it doesn't improve with Tylenol. Encourage PO intake Monitor neuro symptoms. # Increased troponin likely secondary to demand ischemia Troponin 0.06, New T wave inversions as compared to previous EKG Trend Troponin every 6 hrs Repeat EKG in AM BNP- 2257, no previous BNP to compare. Echo ordered # Parkinson's Disease continue levodopa/carbidopa # Hypertension Continue Amlodipine # Hyperlipidemia Continue Pravastatin 40mg HS # BPH with prostate Cancer stage IV Outpatient follow up with oncologist Continue Tamsulocin # All medications to be resumed after confirming with pharmacy. # FEN IV D5-1/2 NS @ 75mls/hr Electrolytes WNL Sodium controlled diet # Prophylaxis For DVT: Lovenoz 40 mg sq Daily. For GI: Not indicated # Code Status: Full Code # Dispo: Duration of stay unknown. Illness, Investigation and Plan of care explained to the patient and his daughter. They verbalized understanding. Case discussed with Dr. Dumont. Visit type - Emergency Visit Emergency Visit: Yes ED Registration Date: 06/21/17 Care time: The patient presented to the Emergency Department on the above date and was hospitalized for further evaluation of their emergent condition. - New Patient This patient is new to me today: Yes Date on this admission: 06/21/17 - Critical Care Critical Care patient: No
[2017-06-21] MEDS ORDERED: DEXTROSE 5%-0.45% SALINE 1,000 ML IV SCH ×2 (14:30→16:46)
--- NOTE | 2017-06-21 14:36 | HP ---
CHIEF COMPLAINT: Lethargy PCP: Dr. Ry Celestin ([phone]) HISTORY OF PRESENT ILLNESS: The patient is an 81 yo m w/ PMH HTN, HLD, Parkinson's disease, polymyalgia rheumatica stage IV prostate Ca s/p hormone injections and scheduled for radiation who comes into the ED c/o a 1 year history of progressive lethargy. Per the patient, he has been feeling "not himself" with trouble sleeping and decreased PO intake. Yesterday, the patient's lethargy got significantly worse, which prompted him to visit his PCP. Per the patient's PCP, the patient, who is normally an active a vibrant person, appeared very lethargic and fatigued to the point where he wished the patient to be evaluated. Patient denies chest pain , SOB, fevers, chills, abdominal pain, sick contacts, dysuria. ER course was notable for: (1) CT head negative, CXR WNL (2) BNP 2257, Trop .06, (3) Recent Travel: none PAST MEDICAL HISTORY: see HPI PAST SURGICAL HISTORY: none Social History: Smoking: former smoker, quit 25 yrs ago Alcohol: denies Drugs: denies Family History: non-contributory Allergies No Known Allergies Allergy (Verified 06/21/17 09:40) HOME MEDICATIONS: Home Medications Medication Instructions Recorded Amlodipine Besylate [Norvasc -] 5 mg PO DAILY 03/29/17 Carbidopa/Levodopa 25/100 [Sinemet 1 each PO TID 03/29/17 25/100 -] Hydrochlorothiazide 12.5 mg PO DAILY 03/29/17 Oxycodone HCl/Acetaminophen 1 tab PO Q6H PRN 03/29/17 [Percocet 5-325 mg Tablet] Pravastatin Sodium [Pravachol -] 40 mg PO HS 03/29/17 Prednisolone [Millipred] 10 mg PO BID 03/29/17 Tamsulosin HCl [Flomax] 0.4 mg PO BID 03/29/17 Folic Acid 1 mg PO DAILY 06/21/17 Methotrexate [Mexate -] 7.5 mg PO Q7D 06/21/17 Pramipexole Di-HCl [Mirapex] 0.5 mg PO HS 06/21/17 REVIEW OF SYSTEMS CONSTITUTIONAL: Absent: fever, chills, diaphoresis, weight change HEENT: Absent: rhinorrhea, nasal congestion, throat pain, throat swelling, difficulty swallowing, mouth swelling, ear pain, eye pain, visual changes CARDIOVASCULAR: Absent: chest pain, syncope, palpitations, irregular heart rate, lightheadedness , peripheral edema RESPIRATORY: Absent: cough, shortness of breath, dyspnea with exertion, orthopnea, wheezing, stridor, hemoptysis GASTROINTESTINAL: Absent: abdominal pain, abdominal distension, nausea, vomiting, diarrhea, constipation, melena, hematochezia GENITOURINARY: Absent: dysuria, frequency, urgency, hesitancy, hematuria, flank pain, genital pain MUSCULOSKELETAL: Absent: myalgia, arthralgia, joint swelling, back pain, neck pain SKIN: Absent: rash, itching, pallor HEMATOLOGIC/IMMUNOLOGIC: Absent: easy bleeding, easy bruising, lymphadenopathy, frequent infections ENDOCRINE: Absent: unexplained weight gain, unexplained weight loss, heat intolerance, cold intolerance NEUROLOGIC: Absent: headache, focal weakness or paresthesias, dizziness, unsteady gait, seizure, mental status changes, bladder or bowel incontinence PSYCHIATRIC: Absent: anxiety, depression, suicidal or homicidal ideation, hallucinations. PHYSICAL EXAMINATION Vital Signs - 24 hr 06/21/17 09:37 Temperature 97.5 F L Pulse Rate 83 Respiratory 19 Rate Blood Pressure 153/70 O2 Sat by Pulse 95 Oximetry (%) GENERAL: Awake, alert, and fully oriented, in no acute distress. HEAD: Normal with no signs of trauma. EYES: Pupils equal, round and reactive to light, extraocular movements intact, sclera anicteric, conjunctiva clear. No lid lag. NECK: Normal range of motion, supple without lymphadenopathy, JVD, or masses. LUNGS: Breath sounds equal, clear to auscultation bilaterally. No wheezes, and no crackles. No accessory muscle use. HEART: Regular rate and rhythm, normal S1 and S2 without murmur, rub or gallop. ABDOMEN: Soft, nontender, not distended, normoactive bowel sounds, no guarding, no rebound, no masses. No hepatomegaly or splenomegaly. LOWER EXTREMITIES: 2+ pulses, warm, well-perfused. No calf tenderness. No peripheral edema. NEUROLOGICAL: Cranial nerves II-XII intact. Normal speech. Strength 5/5 b/l in all 4 extremities. PSYCHIATRIC: Cooperative. Good eye contact. Appropriate mood and affect. SKIN: Warm, dry, normal turgor, no rashes or lesions noted, normal capillary refill. Laboratory Results - last 24 hr 06/21/17 06/21/17 06/21/17 10:38 10:38 10:50 WBC 9.1 D RBC 3.46 L Hgb 11.6 L D Hct 33.5 L MCV 96.9 H MCH 33.4 MCHC 34.5 RDW 15.5 D Plt Count 289 D MPV 7.9 Neutrophils % 75.6 Lymphocytes % 9.3 D Monocytes % 5.6 Eosinophils % 8.4 H D Basophils % 1.1 Sodium Potassium Chloride Carbon Dioxide Anion Gap BUN Creatinine Creat Clearance w eGFR Random Glucose Calcium Magnesium Total Bilirubin AST ALT Alkaline Phosphatase Troponin I B-Natriuretic Peptide 2257.50 H Total Protein Albumin TSH 1.49 D Urine Color Yellow Urine Appearance Cloudy Urine pH 7.0 Ur Specific [place] 1.012 Urine Protein Negative Urine Glucose (UA) Negative Urine Ketones Negative Urine Blood Negative Urine Nitrite Negative Urine Bilirubin Negative Urine Urobilinogen Negative Ur Leukocyte Esterase Negative 06/21/17 06/21/17 10:50 10:50 WBC RBC Hgb Hct MCV MCH MCHC RDW Plt Count MPV Neutrophils % Lymphocytes % Monocytes % Eosinophils % Basophils % Sodium 140 Potassium 3.7 Chloride 104 Carbon Dioxide 30 Anion Gap 6 L BUN 20 H D Creatinine 0.7 Creat Clearance w eGFR > 60 Random Glucose 98 Calcium 8.6 Magnesium 2.0 Total Bilirubin 0.9 D AST 32 D ALT 30 D Alkaline Phosphatase 61 D Troponin I 0.06 H B-Natriuretic Peptide Total Protein 6.0 L Albumin 3.2 L D TSH Cancelled Urine Color Urine Appearance Urine pH Ur Specific [place] Urine Protein Urine Glucose (UA) Urine Ketones Urine Blood Urine Nitrite Urine Bilirubin Urine Urobilinogen Ur Leukocyte Esterase ASSESSMENT/PLAN: The patient is an 81 yo m w/ [facility] HTN, Parkinson's, polymyalgia rheumatica, and prostate Ca admitted for observation due to progressive lethargy and decreased PO intake. #Lethargy and weakness likely 2/2 decreased PO intake. r/o cardiac etiology or steriod/statin induced myopathy -D5 1/2 NS @ 42 -add on mag and phos to admissoin labs -get lytes in the AM -echo shows EF 34, lateral wall hypokinesis -f/u cardiac enzymes 6p and 12a -cardio consult #Increased troponin likely demand -likely demand -will trend -EKG with only nonspecific t wave changes #HTN -c/w home norvasc 5mg #parkinson's disease -c/w carbidopa/levidopa -c/w home mirapex #polymyalgia rheumatica -c/w home MTX weekly; patient takes it on tuesdays -c/w home prednisone 10mg BID #FEN -D5 03/12 NS @42 -monitor lytes -sodium controlled diet #pptx -lovenox 40mg SQ #dispo -admit tele obs Visit type - Emergency Visit Emergency Visit: Yes ED Registration Date: 06/21/17 Care time: The patient presented to the Emergency Department on the above date and was hospitalized for further evaluation of their emergent condition. - New Patient This patient is new to me today: Yes Date on this admission: 06/21/17 - Critical Care Critical Care patient: No Hospitalist Screening - Colonoscopy Questionnaire Colonoscopy Questionnaire: Colonoscopy Questionnaire - Patient: 50 - 75 years old and never had a screening colonoscopy: Unknown History of colon or rectal polyps, or CA: Unknown History of IBD, Crohn's disease or UC: Unknown History of abdominal radiation therapy as a child: Unknown - Relative: 1 with colon or rectal CA, or polyps at age 60 or younger: Unknown Colon or rectal CA diagnosed at age 45 or younger: Unknown Multiple relatives with colon or rectal CA: Unknown - Outcome: Screening Result: Negative Screen
[2017-06-21 14:49] LABS: PHOSPHOROUS 2.9 mg/dL (2.5-4.9)
[2017-06-21] MEDS ORDERED: ACETAMINOPHEN 325 MG TABLET (FP) ONE (14:58)
[2017-06-21] MEDS ORDERED: ACETAMINOPHEN 325 MG TABLET (FP) PO PRN ×2 (15:01→19:58)
[2017-06-21] MEDS ORDERED: ACETAMINOPHEN 325 MG TABLET (FP) PO ONE (15:15)
--- NOTE | 2017-06-21 16:58 | PN ---
Teaching Attending Note Name of Resident: Juan Guzman ATTENDING PHYSICIAN STATEMENT I saw and evaluated the patient. I reviewed the resident's note and discussed the case with the resident. I agree with the resident's findings and plan as documented. SUBJECTIVE: This is an 81 year old man with a history of HTN, hyperlipidemia, Parkinson disease, PMR, prostate cancer who comes to the ED complaining of lethargy. He has been having symptoms for about a year, but yesterday he felt much worse. He reports difficulty sleeping and poor oral intake. He saw his PCP who advised him to go to the ED. He denies chest pain, SOB, palpitations, fevers , chills, abdominal pain, nausea, diarrhea, melena, rectal bleeding, dysuria, hematuria, urinary frequency, weight loss. OBJECTIVE: Vital Signs Period Temp Pulse Resp BP Sys/Valenzuela Pulse Ox Last 24 Hr 97.5 F 79-83 19-20 143-153/70-80 95-97 HEART: S1S2, RRR LUNGS: Clear ABDOMEN: Soft, non-tender, non-distended, normal BS EXTREMITIES: No edema NEUROLOGICAL: Non-focal Laboratory Tests 06/21/17 06/21/17 06/21/17 10:38 10:38 10:50 WBC 9.1 D RBC 3.46 L Hgb 11.6 L D Hct 33.5 L MCV 96.9 H MCH 33.4 MCHC 34.5 RDW 15.5 D Plt Count 289 D MPV 7.9 Neutrophils % 75.6 Lymphocytes % 9.3 D Monocytes % 5.6 Eosinophils % 8.4 H D Basophils % 1.1 Sodium Potassium Chloride Carbon Dioxide Anion Gap BUN Creatinine Creat Clearance w eGFR Random Glucose Calcium Phosphorus Magnesium Total Bilirubin AST ALT Alkaline Phosphatase Troponin I B-Natriuretic Peptide 2257.50 H Total Protein Albumin TSH 1.49 D Urine Color Yellow Urine Appearance Cloudy Urine pH 7.0 Ur Specific [place] 1.012 Urine Protein Negative Urine Glucose (UA) Negative Urine Ketones Negative Urine Blood Negative Urine Nitrite Negative Urine Bilirubin Negative Urine Urobilinogen Negative Ur Leukocyte Esterase Negative 06/21/17 06/21/17 10:50 10:50 WBC RBC Hgb Hct MCV MCH MCHC RDW Plt Count MPV Neutrophils % Lymphocytes % Monocytes % Eosinophils % Basophils % Sodium 140 Potassium 3.7 Chloride 104 Carbon Dioxide 30 Anion Gap 6 L BUN 20 H D Creatinine 0.7 Creat Clearance w eGFR > 60 Random Glucose 98 Calcium 8.6 Phosphorus 2.9 Magnesium 2.0 Total Bilirubin 0.9 D AST 32 D ALT 30 D Alkaline Phosphatase 61 D Troponin I 0.06 H B-Natriuretic Peptide Total Protein 6.0 L Albumin 3.2 L D TSH Cancelled Urine Color Urine Appearance Urine pH Ur Specific [place] Urine Protein Urine Glucose (UA) Urine Ketones Urine Blood Urine Nitrite Urine Bilirubin Urine Urobilinogen Ur Leukocyte Esterase Home Medications Medication Instructions Recorded Amlodipine Besylate [Norvasc -] 5 mg PO DAILY 03/29/17 Carbidopa/Levodopa 25/ [Sinemet 1 each PO TID 03/29/17 25/100 -] Hydrochlorothiazide 12.5 mg PO DAILY 03/29/17 Oxycodone HCl/Acetaminophen 1 tab PO Q6H PRN 03/29/17 [Percocet 5-325 mg Tablet] Pravastatin Sodium [Pravachol -] 40 mg PO HS 03/29/17 Prednisolone [Millipred] 10 mg PO BID 03/29/17 Tamsulosin HCl [Flomax] 0.4 mg PO BID 03/29/17 Folic Acid 1 mg PO DAILY 06/21/17 Methotrexate [Mexate -] 7.5 mg PO Q7D 06/21/17 Pramipexole Di-HCl [Mirapex] 0.5 mg PO HS 06/21/17 ASSESSMENT AND PLAN: This is an 81 year old man with a history of HTN, hyperlipidemia, Parkinson disease, PMR, prostate cancer who presented to the ED with lethargy. 1. Lethargy and weakness - No clear cause - possible dehydration, failure to thrive, steroid myopathy , statin myopathy, cardiac - Place in observation - Check CK, TSH - IV fluid - PT evaluation 2. Elevated troponin and BNP - Possible demand ischemia vs NSTEMI - No clinical signs of CHF - Monitor on telemetry - Serial troponins - Echocardiogram 3. HTN - Continue Norvasc 4. Hyperlipidemia - Continue Pravachol 5. Parkinson disease - Continue Sinemet 6. Polymyalgia rheumatica - Continue Prednisone, Methotrexate 7. Prostate cancer 8. Anemia - Mild with slight macrocytosis - Hgb was 12.9 with MCV 94.5 on 04/10/17 (11.6 and 96.9 today) - Check stool occult blood, iron studies, TSH, B12, folate
[2017-06-21] MEDS ORDERED: PNEUMOC 13-VAL CONJ-DIP CRM/PF 0.5 ML DISP.SYRIN IM ONE (18:24)
[2017-06-21] MEDS ORDERED: oxyCODONE HCL 5 MG TABLET PO PRN (19:57)
[2017-06-21] MEDS: CARBIDOPA/LEVODOPA 25/100 TABLET (FP) PO SCH (21:15)
[2017-06-21] MEDS: prednisoLONE SODIUM PHOSPHATE 5 MG/5 ML ORAL SOLN BOTTLE PO SCH (21:16)
--- NOTE | 2017-06-21 21:21 | CON.CARD ---
Consult Consult Specialty:: Cardiology Referred by:: Hospitalist Medicine Reason for Consultation:: Cardiomyopathy - History of Present Illness Chief Complaint: Fatigue History of Present Illness: This is an 81 year old man with a history of HTN, hyperlipidemia, Parkinson disease, PMR, prostate cancer presented complaining of worsening in chronic lethargy. He reports difficulty sleeping and poor oral intake. He saw his PCP who advised him to go to the ED. He denies chest pain, SOB, palpitations, fevers , chills, abdominal pain, nausea, diarrhea, melena, rectal bleeding, dysuria, hematuria, urinary frequency, weight loss. - History Source History Provided By: Patient Limitations to Obtaining History: No Limitations - Past Medical History Cardio/Vascular: Yes: HTN - Alcohol/Substance Use Hx Alcohol Use: No - Smoking History Smoking history: Never smoked Have you smoked in the past 12 months: No If you are a former smoker, when did you quit?: 25 yrs ago Home Medications - Allergies Allergies/Adverse Reactions: Allergies Allergy/AdvReac Type Severity Reaction Status Date / Time No Known Allergies Allergy Verified 06/21/17 09:40 - Home Medications Home Medications: Ambulatory Orders Amlodipine Besylate [Norvasc -] 5 mg PO DAILY 03/29/17 Carbidopa/Levodopa 25/100 [Sinemet 25/100 -] 1 each PO TID 03/29/17 Hydrochlorothiazide 12.5 mg PO DAILY 03/29/17 Oxycodone HCl/Acetaminophen [Percocet 5-325 mg Tablet] 1 tab PO Q6H PRN Pravastatin Sodium [Pravachol -] 40 mg PO HS 03/29/17 Prednisolone [Millipred] 10 mg PO BID 03/29/17 Tamsulosin HCl [Flomax] 0.4 mg PO BID 03/29/17 Folic Acid 1 mg PO DAILY 06/21/17 Methotrexate [Mexate -] 7.5 mg PO Q7D 06/21/17 Pramipexole Di-HCl [Mirapex] 0.5 mg PO HS 06/21/17 Review of Systems - Review of Systems Constitutional: reports: Weakness Vital Signs: Vital Signs Temperature 97.2 F L 06/21/17 18:08 Pulse Rate 78 06/21/17 18:08 Respiratory Rate 20 06/21/17 18:08 Blood Pressure 170/92 06/21/17 18:08 O2 Sat by Pulse Oximetry (%) 97 06/21/17 18:08 Constitutional: Yes: No Distress, Calm Neck: Yes: Supple Respiratory: Yes: Regular, CTA Bilaterally Gastrointestinal: Yes: Normal Bowel Sounds, Soft Cardiovascular: Yes: Regular Rate and Rhythm JVD: No Carotid Bruit: No Heart Sounds: Yes: S1, S2 Murmur: Yes: Systolic Murmur, Grade 1 Edema: Yes Edema: LLE: Trace, RLE: Trace - Other Data Labs, Other Data: CBC, BMP 06/21/17 10:50 06/21/17 10:50 Troponin, BNP 06/21/17 06/21/17 06/21/17 10:38 10:50 18:20 Troponin I 0.06 H 0.05 B-Natriuretic Peptide 2257.50 H Troponin, BNP 06/21/17 06/21/17 06/21/17 10:38 10:50 18:20 Troponin I 0.06 H 0.05 B-Natriuretic Peptide 2257.50 H Problem List - Problems (1) Hypertensive cardiomyopathy Code(s): I11.9 - HYPERTENSIVE HEART DISEASE WITHOUT HEART FAILURE; I43 - CARDIOMYOPATHY IN DISEASES CLASSIFIED ELSEWHERE Qualifiers: Heart failure presence: without heart failure Qualified Code(s): I11.9 - Hypertensive heart disease without heart failure; I43 - Cardiomyopathy in diseases classified elsewhere; I43 - Cardiomyopathy in diseases classified elsewhere; I43 - Cardiomyopathy in diseases classified elsewhere; I43 - Cardiomyopathy in diseases classified elsewhere (2) HTN (hypertension) Code(s): I10 - ESSENTIAL (PRIMARY) HYPERTENSION Qualifiers: Hypertension type: essential hypertension Qualified Code(s): I10 - Essential (primary) hypertension (3) Hyperlipidemia Code(s): E78.5 - HYPERLIPIDEMIA, UNSPECIFIED Qualifiers: Hyperlipidemia type: pure hypercholesterolemia Qualified Code(s): E78.00 - Pure hypercholesterolemia, unspecified; E78.0 - Pure hypercholesterolemia (4) Parkinson disease Code(s): G20 - PARKINSON'S DISEASE (5) Polymyalgia rheumatica Code(s): M35.3 - POLYMYALGIA RHEUMATICA (6) Prostate CA Code(s): C61 - MALIGNANT NEOPLASM OF PROSTATE (7) Demand ischemia Code(s): I24.8 - OTHER FORMS OF ACUTE ISCHEMIC HEART DISEASE Assessment/Plan 06/21/2017 Echo Mildly decreased LV fxn with moderate lateral wall HK, mild MR, TR, AR 1. Hypertensive cardiomyopathy without failure, not at goal control 2. CAD, demand ischemia 3. Hyperlipidemia 4. Parkinson disease 5. Polymyalgia rheumatica 6. Prostate cancer 7. Anemia P:1. Change Norvasc 5 qd to carvedilol 6.25 bid, add Diovan 80 qd and ASA 81qd with uptitration as tolerated, continue pravachol 40 qhs 2. Trops have peaked 3. Thank you for consultative opportunity
[2017-06-21] MEDS: CARVEDILOL 6.25 MG TABLET (FP) PO SCH (21:49)
[2017-06-21] MEDS ORDERED: ATORVASTATIN CA 10 MG TABLET (FP) PO SCH (22:00)
[2017-06-21] MEDS ORDERED: PRAMIPEXOLE DIHYDROCHLORIDE 0.5 MG TABLET PO SCH (22:00)
[2017-06-22] MEDS: CARBIDOPA/LEVODOPA 25/100 TABLET (FP) PO SCH ×2 (05:41→13:44)
[2017-06-22 07:22] LABS: BASO % 0.5 % (0-2.0); EOS % 0.8 % (0-4.5); HEMATOCRIT 30.7 % (35.4-49); HEMOGLOBIN 10.7 GM/dL (11.7-16.9); LYMPH % 9.1 % (8-40); MCH 33.6 pg (25.7-33.7); MCHC 34.8 g/dl (32.0-35.9); MEAN CELL VOLUME 96.6 fl (80-96); MONO % 5.1 % (3.8-10.2); NEUT % 84.5 % (42.8-82.8); PLATELET COUNT 274 K/MM3 (134-434); RBC 3.18 M/mm3 (4.00-5.60); WHITE BLOOD COUNT 6.8 K/mm3 (4.0-10.0)
[2017-06-22 07:48] LABS: ALBUMIN 2.7 g/dl (3.4-5.0); ANION GAP 7 (8-16); BLOOD UREA NITROGEN 17 mg/dL (7-18); CALCIUM 8.1 mg/dL (8.5-10.1); CHLORIDE 104 mmol/L (98-107); CO2 29 mmol/L (21-32); CREATININE 0.9 mg/dL (0.7-1.3); GLUCOSE,RANDOM 148 mg/dL (74-106); PHOSPHOROUS 3.5 mg/dL (2.5-4.9); POTASSIUM 3.6 mmol/L (3.5-5.1); SGOT/AST 20 U/L (15-37); SGPT/ALT 16 U/L (12-78); SODIUM 140 mmol/L (136-145)
[2017-06-22 07:58] LABS: ALK PHOS 53 U/L (45-117); BILIRUBIN,TOTAL 0.7 mg/dL (0.2-1.0); TOT PROT 5.4 g/dl (6.4-8.2)
[2017-06-22] MEDS ORDERED: TAMSULOSIN HCL 0.4 MG CAP.ER.24H (FP) PO SCH (08:30)
[2017-06-22] MEDS ORDERED: PT OWN MED DRAWER 7, Y5N ONE ×2 (09:33→11:12)
[2017-06-22] MEDS: CARVEDILOL 6.25 MG TABLET (FP) PO SCH (09:51)
[2017-06-22] MEDS: prednisoLONE SODIUM PHOSPHATE 5 MG/5 ML ORAL SOLN BOTTLE PO SCH (09:52)
[2017-06-22] MEDS ORDERED: HYDROCHLOROTHIAZIDE 25 MG TABLET (FP) PO SCH (10:00)
[2017-06-22] MEDS ORDERED: FOLIC ACID 1 MG TABLET (FP) PO SCH (10:00)
[2017-06-22] MEDS ORDERED: ENOXAPARIN NA (PORCINE) 40 MG/0.4 ML DISP.SYRIN SQ SCH (10:00)
[2017-06-22] MEDS ORDERED: ASPIRIN 81 MG CHEWABLE TABLETS PO SCH (10:00)
[2017-06-22] MEDS ORDERED: amLODIPine BESYLATE 5 MG TABLET (FP) PO SCH (10:00)
[2017-06-22] MEDS ORDERED: VALSARTAN 80 MG TABLET (UD) PO SCH (10:00)
[2017-06-22] MEDS ORDERED: VALSARTAN 80 MG TABLET (UD) PO ONE (12:30)
--- NOTE | 2017-06-22 12:33 | DS ---
Physical Exam: SUBJECTIVE: Patient seen and examined Patient is feeling better, no new complains. No nausea or vomiting, stated that he received Lupron for his prostate cancer which makes him have hot flashes and makes him tired. this is new to him. OBJECTIVE: Vital Signs Temperature 97.8 F 06/22/17 09:00 Pulse Rate 77 06/22/17 09:00 Respiratory Rate 20 06/22/17 09:00 Blood Pressure 166/78 06/22/17 09:00 O2 Sat by Pulse Oximetry (%) 97 06/21/17 21:00 PHYSICAL EXAM GENERAL: The patient is awake, alert, and fully oriented, in no acute distress. HEAD: Normal with no signs of trauma. EYES: PERRL, extraocular movements intact, sclera anicteric, conjunctiva clear. ENT: Ears normal, oropharynx clear without exudates, moist mucous membranes. NECK: Trachea midline, full range of motion, supple. LUNGS: Breath sounds equal, clear to auscultation bilaterally, no wheezes, no crackles, no accessory muscle use. HEART: Regular rate and rhythm, S1, S2 posiitve, no murmur appreciated , rub or gallop. ABDOMEN: Soft, NT,NR, ND, normoactive bowel sounds, No rebound, no hepatosplenomegaly, no masses appreciated EXTREMITIES: 2+ pulses, warm, well-perfused, no edema. NEUROLOGICAL: Cranial nerves II through XII grossly intact. Normal speech, gait not observed. PSYCH: Normal mood, normal affect. SKIN: Warm, dry, normal turgor, no rashes or lesions noted. LABS CBCD WBC 6.8 K/mm3 (4.0-10.0) 06/22/17 06:30 RBC 3.18 M/mm3 (4.00-5.60) L 06/22/17 06:30 Hgb 10.7 GM/dL (11.7-16.9) L 06/22/17 06:30 Hct 30.7 % (35.4-49) L 06/22/17 06:30 MCV 96.6 fl (80-96) H 06/22/17 06:30 MCHC 34.8 g/dl (32.0-35.9) 06/22/17 06:30 RDW 15.0 % (11.9-15.9) 06/22/17 06:30 Plt Count 274 K/MM3 (134-434) 06/22/17 06:30 MPV 8.0 fl (7.5-11.1) 06/22/17 06:30 CMP Sodium 140 mmol/L (136-145) 06/22/17 06:30 Potassium 3.6 mmol/L (3.5-5.1) 06/22/17 06:30 Chloride 104 mmol/L (98-107) 06/22/17 06:30 Carbon Dioxide 29 mmol/L (21-32) 06/22/17 06:30 Anion Gap 7 (8-16) L 06/22/17 06:30 BUN 17 mg/dL (7-18) 06/22/17 06:30 Creatinine 0.9 mg/dL (0.7-1.3) D 06/22/17 06:30 Creat Clearance w eGFR > 60 (>60) 06/22/17 06:30 Random Glucose 148 mg/dL (74-106) H D 06/22/17 06:30 Calcium 8.1 mg/dL (8.5-10.1) L 06/22/17 06:30 Total Bilirubin 0.7 mg/dL (0.2-1.0) D 06/22/17 06:30 AST 20 U/L (15-37) D 06/22/17 06:30 ALT 16 U/L (12-78) D 06/22/17 06:30 Alkaline Phosphatase 53 U/L (45-117) 06/22/17 06:30 Total Protein 5.4 g/dl (6.4-8.2) L 06/22/17 06:30 Albumin 2.7 g/dl (3.4-5.0) L 06/22/17 06:30 CARDIAC ENZYMES Creatine Kinase 111 IU/L (39-308) 06/21/17 18:20 Troponin I 0.05 ng/ml (0.00-0.05) 06/21/17 18:20 Current Medications Generic Name Dose Route Start Last Admin Trade Name Freq PRN Reason Stop Dose Admin Acetaminophen 650 mg 06/21/17 19:58 06/21/17 21:19 Tylenol - PO 650 mg Q6H PRN Administration PAIN LEVEL 1-6 Aspirin 81 mg 06/22/17 10:00 06/22/17 09:51 Asa - PO 81 mg DAILY [facility] Administration Atorvastatin Calcium 10 mg 06/21/17 22:00 06/21/17 21:15 Lipitor - PO 10 mg HS [facility] Administration Carbidopa/Levodopa 1 each 06/21/17 22:00 06/22/17 05:41 Sinemet 25/100 - PO 1 each TID [facility] Administration Carvedilol 6.25 mg 06/21/17 22:00 06/22/17 09:51 Coreg - PO 6.25 mg BID [facility] Administration Enoxaparin Sodium 40 mg 06/22/17 10:00 06/22/17 09:51 Lovenox - SQ 40 mg DAILY [facility] Administration Folic Acid 1 mg 06/22/17 10:00 06/22/17 09:51 Folic Acid - PO 1 mg DAILY [facility] Administration Dextrose/Sodium Chloride 1,000 mls @ 42 mls/hr 06/21/17 16:46 06/21/17 21:23 D5-1/2ns - IV 42 mls/hr ASDIR [facility] Administration Methotrexate 7.5 mg 06/25/17 10:00 Mexate - PO Tu [facility] Oxycodone HCl 5 mg 06/21/17 19:57 06/21/17 21:19 Roxicodone - PO 5 mg Q6H PRN Administration PAIN LEVEL 7 - 10 Pramipexole Dihydrochloride 0.5 mg 06/21/17 22:00 06/21/17 21:15 Mirapex - PO 0.5 mg HS [facility] Administration Prednisolone Sodium Phosphate 10 mg 06/21/17 22:00 06/22/17 09:52 Orapred (5mg/5ml) Oral Solution - PO 10 mg BID [facility] Administration Tamsulosin HCl 0.8 mg 06/22/17 08:30 06/22/17 08:30 Flomax - PO 0.8 mg 0830 [facility] Administration Valsartan 160 mg 06/23/17 10:00 Diovan - PO DAILY [facility] Home Medications Medication Instructions Recorded Carbidopa/Levodopa 25/100 [Sinemet 1 each PO TID 03/29/17 25/100 -] Oxycodone HCl/Acetaminophen 1 tab PO Q6H PRN 03/29/17 [Percocet 5-325 mg Tablet] Pravastatin Sodium [Pravachol -] 40 mg PO HS 03/29/17 Prednisolone [Millipred] 10 mg PO BID 03/29/17 Tamsulosin HCl [Flomax] 0.4 mg PO BID 03/29/17 Folic Acid 1 mg PO DAILY 06/21/17 Methotrexate [Mexate -] 7.5 mg PO Q7D 06/21/17 Pramipexole Di-HCl [Mirapex] 0.5 mg PO HS 06/21/17 Aspirin [ASA -] 81 mg PO DAILY tab.chew 06/22/17 Carvedilol [Coreg -] 6.25 mg PO BID #60 tablet 06/22/17 Valsartan [Diovan] 160 mg PO DAILY #30 tablet 06/22/17 Laboratory Tests 06/21/17 06/21/17 06/21/17 10:38 10:50 18:20 Troponin I 0.06 H 0.05 B-Natriuretic Peptide 2257.50 H Laboratory Tests 06/21/17 06/21/17 06/21/17 10:38 10:50 18:20 Troponin I 0.06 H 0.05 B-Natriuretic Peptide 2257.50 H Serum Folate TSH 1.49 D 06/22/17 06:30 Troponin I B-Natriuretic Peptide Serum Folate 15 TSH 0.58 D Echo: EJF 34.5%, moderate Lateral wall hypokinesis, mild AR HOSPITAL COURSE: Date of Admission:06/21/17 Date of Discharge: 06/22/17 his is an 81 year old man with a history of HTN, hyperlipidemia, Parkinson disease, PMR, prostate cancer who presented to the ED with lethargy. # Hypertensive cardiomyopathy without failure, need better control of HTN new Rxs were given Coreg 6.25mg po bid and diovan 160mg po bid, will ask the patient to follow up with in his office for further care and management. patient needs stress test as an outpatient. # Lethargy and weakness improved # Elevated troponin and BNP most likely due to demand Ischemia # HTN Uncontolled will switch him to Coreg and Diovan and discontinue Norvasc and Hctz # Hyperlipidemia Continue Pravachol 40mg po qhs # Parkinson disease continue home meds. Sinemet, follow with neurologist. # Polymyalgia rheumatica continue Prednisone, Methotrexate and Folic acid # Prostate cancer follows on Lupron therapy # Anemia most likely due to his prostate ca , ferritin level elevated. discharge time 45minutes. Minutes to complete discharge: 45 Discharge Summary Reason For Visit: ELEVATED TROPONIN LEVEL Current Active Problems Demand ischemia (Acute) Hypertensive cardiomyopathy (Acute) Troponin level elevated (Acute) Condition: Stable - Instructions Referrals: Ry Celestin [Primary Care Provider] - - Home Medications Comprehensive Discharge Medication List: Ambulatory Orders Carbidopa/Levodopa 25/100 [Sinemet 25/100 -] 1 each PO TID 03/29/17 Oxycodone HCl/Acetaminophen [Percocet 5-325 mg Tablet] 1 tab PO Q6H PRN Pravastatin Sodium [Pravachol -] 40 mg PO HS 03/29/17 Prednisolone [Millipred] 10 mg PO BID 03/29/17 Tamsulosin HCl [Flomax] 0.4 mg PO BID 03/29/17 Folic Acid 1 mg PO DAILY 06/21/17 Methotrexate [Mexate -] 7.5 mg PO Q7D 06/21/17 Pramipexole Di-HCl [Mirapex] 0.5 mg PO HS 06/21/17 Aspirin [ASA -] 81 mg PO DAILY tab.chew 06/22/17 Carvedilol [Coreg -] 6.25 mg PO BID #60 tablet 06/22/17 Valsartan [Diovan] 160 mg PO DAILY #30 tablet 06/22/17 This patient is new to me today: Yes Date on this admission: 06/22/17 Emergency Visit: Yes ED Registration Date: 06/21/17 Care time: The patient presented to the Emergency Department on the above date and was hospitalized for further evaluation of their emergent condition. Critical Care patient: No - Discharge Referral Referred to [facility] No
[2017-06-22 14:56] VITALS: BP 141/73; PULSE 72; TEMP 98
[2017-06-23 09:32] LABS: SERUM IRON SATURATION 21 % (15-55); TOTAL IRON BINDING CAPACITY 207 ug/dL (250-450); UIBC 163 ug/dL (111-343)
[2017-06-23] MEDS ORDERED: VALSARTAN 160 MG TABLET (UD) PO SCH (10:00)
--- NOTE | 2017-06-24 14:15 | EKG ---
Test Reason : Blood Pressure : / mmHG Vent. Rate : 072 BPM Atrial Rate : 072 BPM P-R Int : 272 ms QRS Dur : 088 ms QT Int : 384 ms P-R-T Axes : 010 -11 139 degrees QTc Int : 420 ms SINUS RHYTHM WITH MARKED SINUS ARRHYTHMIA WITH 1ST DEGREE A-V BLOCK LEFT VENTRICULAR HYPERTROPHY WITH REPOLARIZATION ABNORMALITY ABNORMAL ECG WHEN COMPARED WITH ECG OF 03-APR-2017 09:53, FUSION COMPLEXES ARE NO LONGER PRESENT PREMATURE VENTRICULAR COMPLEXES ARE NO LONGER PRESENT NONSPECIFIC T WAVE ABNORMALITY NOW EVIDENT IN ANTERIOR LEADS Confirmed by ML STATON MD ([id number]) on 06/24/2017 2:15:12 PM Referred By: Confirmed By:ML STATON MD
[2017-06-25] MEDS ORDERED: METHOTREXATE 2.5 MG TABLET PO SCH (10:00)
== END 2017-06-22 14:30 | disposition home or self-care (01) ==
LOC: JER 09:34 → JERBED 14:01 → J4W 16:22
PROVIDERS: ADMIT Internal Medicine; ATTEND Internal Medicine
PROC: 3E0337Z Introduction of Electrolytic and Water Balance Substance into Peripheral Vein, Percutaneous Approach (ICD-10-PCS; principal; 2017-06-21)
PROC: 3E013GC Introduction of Other Therapeutic Substance into Subcutaneous Tissue, Percutaneous Approach (ICD-10-PCS; 2017-06-21)
DX: R77.8 Other specified abnormalities of plasma proteins (principal); R53.83 Other fatigue; G20 Parkinson's disease; I11.9 Hypertensive heart disease without heart failure; I43 Cardiomyopathy in diseases classified elsewhere; I24.8 Other forms of acute ischemic heart disease; E78.5 Hyperlipidemia, unspecified; M35.3 Polymyalgia rheumatica; C61 Malignant neoplasm of prostate; C77.9 Secondary and unspecified malignant neoplasm of lymph node, unspecified; N40.0 Benign prostatic hyperplasia without lower urinary tract symptoms; R01.1 Cardiac murmur, unspecified; D64.9 Anemia, unspecified; Z87.891 Personal history of nicotine dependence
CPT/HCPCS: 36415; 70450-TC; 71045-TC-FY; 80053; 81003; 82550; 82607; 82728; 82746; 83540; 83550; 83735; 83880; 84100; 84443; 84484; 85025; 87086; 90670; 93005; 93010; 93306-TC; 99285-25; G0009; G0378

== ENCOUNTER 2018-08-12 15:34 | Inpatient (IN) | payer BC ==
--- NOTE | 2018-08-12 15:55 | PDOC ---
Rapid Medical Evaluation Time Seen by Provider: 08/12/18 15:47 Medical Evaluation: Allergies Allergy/AdvReac Type Severity Reaction Status Date / Time No Known Allergies Allergy Verified 06/21/17 09:40 Vital Signs Temp Pulse Resp BP Pulse Ox 97.6 F 68 16 152/91 96 08/12/18 15:50 08/12/18 15:50 08/12/18 15:50 08/12/18 15:50 08/12/18 15:50 08/12/18 15:54 The patient c/o: sob, lower ext edema Patient on brief exam: 3+ pitting edema, mild crackles to right base Patient ordered for: labs, ekg, iv Patient to proceed to the ED Discharge Disposition - Diagnosis Shortness of breath - Discharge Dispostion Condition at time of disposition: Stable - Referrals - Patient Instructions - Post Discharge Activity
[2018-08-12] MEDS ORDERED: FUROSEMIDE 40 MG/4 ML INJECTABLE VIAL IVPUSH ONE ×2 (17:05→23:53)
[2018-08-12 18:20] LABS: ALBUMIN 3.2 g/dl (3.4-5.0); BILIRUBIN,TOTAL 0.6 mg/dL (0.2-1); CALCIUM 8.6 mg/dL (8.5-10.1); CREATININE 0.9 mg/dL (0.55-1.3); MAGNESIUM 1.9 mg/dL (1.8-2.4); N-TERMINAL BNP 10341.5 pg/ml (5-450); POTASSIUM 3.7 mmol/L (3.5-5.1); TOT PROT 6.5 g/dl (6.4-8.2)
--- NOTE | 2018-08-12 18:35 | PDOC ---
Documentation entered by Salazar Ochoa SCRIBE, acting as scribe for Karon Ball MD. Karon Ball MD: This documentation has been prepared by the Gabriela angelo Nirvannie, SCRIBE, under my direction and personally reviewed by me in its entirety. I confirm that the documentation accurately reflects all work, treatment, procedures, and medical decision making performed by me. History of Present Illness - General Chief Complaint: Congestive Heart Failure Stated Complaint: SENT BY PCP\ SOB Time Seen by Provider: 08/12/18 15:47 History Source: Patient, Family Exam Limitations: No Limitations - History of Present Illness Initial Comments: 08/12/18 17:50 [id number] with significant past medical history of HTN, Parkinsons, Polymyalgia rheumatica, drop foot right, prostate cancer, Piriformis syndrome right, shingles, HLD, lumbar degenerative disc disease, blt hydronephrosis presenting with 1 month of worsening bilateral lower extremity edema with new onset of dyspnea upon exertion and at rest over the past 4-5 days. As per family at bedside, patient was advised by his PCP to report to the ED for further evaluation for chf, with cxr +pulmonary vascular congestion. Denies fever, chills, chest pain, palpitation, dizziness, weakness, N, V, D, abdominal pain, bladder and bowel problems, leg swelling, No sick contacts or travel. No new changes in medications. No suspicious food intake Allergies: None Past Medical History: as documented in EMR/HPI Social history: Lives with family. No tobacco, ETOH or drug use. Surgical history: Umbilical hernia repair, sacroplasty Meds: as documented in EMR PMD: Dr. Celestin Medications: Senna 8.6 mg- 2 PO tablets at bedtime as needed Pramipexole Dihydrochloride 0.5mg- 1 tablet at bedtime Sinemet (Carbidopa-Levodopa) 25-100mg- 1 tablet TID Neurontin (Gabapentin) 300mg - 1 Tablet TID Prednisone 10mg- 1 tablet once a day Glucosamine Chrondr 500 complex- Capsule 1 cap daily Lasix 40mg- 1 tablet once a day Norvasc 5mg- 1 tablet once a day Mirtazapine 7.5mg- 1 tablet at bedtime Flonase 50mcg/act suspension- 2 sprays per nostril once a day Past History - Past Medical History Allergies/Adverse Reactions: Allergies Allergy/AdvReac Type Severity Reaction Status Date / Time No Known Allergies Allergy Verified 06/21/17 09:40 Home Medications: Ambulatory Orders Carbidopa/Levodopa 25/100 [Sinemet 25/100 -] 1 each PO TID 03/29/17 Oxycodone HCl/Acetaminophen [Percocet 5-325 mg Tablet] 1 tab PO Q6H PRN Pravastatin Sodium [Pravachol -] 40 mg PO HS 03/29/17 Prednisolone [Millipred] 10 mg PO BID 03/29/17 Tamsulosin HCl [Flomax] 0.4 mg PO BID 03/29/17 Folic Acid 1 mg PO DAILY 06/21/17 Methotrexate [Mexate -] 7.5 mg PO Q7D 06/21/17 Pramipexole Di-HCl [Mirapex] 0.5 mg PO HS 06/21/17 Aspirin [ASA -] 81 mg PO DAILY tab.chew 06/22/17 Carvedilol [Coreg -] 6.25 mg PO BID #60 tablet 06/22/17 Valsartan [Diovan] 160 mg PO DAILY #30 tablet 06/22/17 Anemia: No Asthma: No Cancer: Yes (DX WITH PROSTAE CA,STAGE 4) Cardiac Disorders: Yes (ENLARGED AORTIC ANERYSM) CVA: No COPD: No CHF: No DVT: No Dementia: No Diabetes: No GI Disorders: No Disorders: No HTN: Yes Hypercholesterolemia: Yes Liver Disease: No Seizures: No Thyroid Disease: No Other medical history: CHF - Immunization History Immunization Up to Date: Yes - Suicide/Smoking/Psychosocial Hx Smoking History: Never smoked Have you smoked in the past 12 months: No If you are a former smoker, when did you quit?: 25 yrs ago Information on smoking cessation initiated: No Hx Alcohol Use: No Drug/Substance Use Hx: No Substance Use Type: None Hx Substance Use Treatment: No Review of Systems - Review of Systems Able to Perform ROS?: Yes Comments:: 08/12/18 17:51 Constitutional: no fevers or chills. HEENT: no headache or dizziness. No congestion. No visual/hearing disturbances. CVS: no cp or syncope. Resp: +sob. No cough. Gastrointestinal: no abdominal pain, nausea or vomiting. Genitourinary: no urinary sx, hematuria. MUSCULOSKELETAL: +Blt LE edema. No joint pain and swelling. No neck or back pain. SKIN: no redness or skin changes, no discharge, no rash. No wounds. Hematologic: no easy bruising/bleeding. NEUROLOGIC: No headache, dizziness, LOC or altered mental status. No weakness, numbness or tingling. Psych: no anxiety or depression Allergic/Immunologic: no allergies All other systems reviewed and negative, or as documented in HPI. 08/12/18 18:32 *Physical Exam - Vital Signs Last Vital Signs Temp Pulse Resp BP Pulse Ox 97.6 F 68 16 152/91 96 08/12/18 15:50 08/12/18 15:50 08/12/18 15:50 08/12/18 15:50 08/12/18 15:50 - Physical Exam Comments: 08/12/18 17:51 General: Well appearing, awake and alert, NAD. HEENT: NCAT, PERRL, EOMI, clear conjunctiva, anicteric, moist mucus membranes, clear oropharynx, no oral lesions.. Neck: +JVD. neck supple, FROM Resp: clear lungs, normal and even respirations, no respiratory distress CVS: RRR, no murmurs, 2+ peripheral pulses throughout, no peripheral edema Abdomen: +Ventral hernia. soft, NTND, no peritoneal signs. Back: nontender, normal inspection and ROM MSK: 4+ blt LE pitting edema, PEREZ x4, ROM intact. No clubbing or cyanosis. normal bulk and tone. Neuro: alert, no focal neuro deficits. Skin: warm and well perfused, cap refill <2 sec, normal color 08/12/18 18:32 Heart Score/ECG Review #1 ECG reviewed & interpreted by me at: 17:25 General ECG Interpretation: Sinus Rhythm, Normal Rate 08/12/18 18:36 EKG normal sinus rhythm at 75 bpm, no interval abnormalities, narrow QRS, ST and T wave segments and morphology normal. Nonspecific T wave abnormalities, prolonged IA interval 1st deg AV block and poor R wave progression ED Treatment Course - LABORATORY CBC & Chemistry Diagram: 08/12/18 17:30 08/12/18 17:30 - ADDITIONAL ORDERS Additional order review: Laboratory Results 08/12/18 17:30 Sodium 142 Potassium 3.7 Chloride 106 Carbon Dioxide 28 Anion Gap 8 BUN 21 H Creatinine 0.9 Est GFR (CKD-EPI)AfAm 90.58 Est GFR (CKD-EPI)NonAf 78.15 Random Glucose 88 Calcium 8.6 Magnesium 1.9 Total Bilirubin 0.6 AST 18 ALT 11 L Alkaline Phosphatase 116 Creatine Kinase 70 Troponin I 0.04 B-Natriuretic Peptide 24332.5 H Total Protein 6.5 Albumin 3.2 L - RADIOLOGY Radiology Studies Ordered: Category Date Time Status CHEST X-RAY PORTABLE* [RAD] Stat Radiology 08/12/18 16:37 Taken Medical Decision Making - Medical Decision Making 08/12/18 18:32 See HPI for details. Prior notes reviewed, including admissions, discharges and consultations. Vital signs reviewed, wnl. laboratory results and imaging reviewed, basic labs and lytes wnl, CXR_pulmonary vascular congestion and cardiomegaly Cardiac panel_neg trop, but ++ BNP 10,000 correlating with CHF/fluid overload EKG normal sinus rhythm at 75 bpm, no interval abnormalities, narrow QRS, ST and T wave segments and morphology normal. Nonspecific T wave abnormalities, prolonged IA interval 1st deg AV block and poor R wave progression ED course -interventions: IV lasix 40mg clinically appearing with fluid overload and CHF - IV diuresis, inpatient cards eval, med adjustment/diuretic, echo. Admit for CHF exacerbation. Discussed results and management plan with pt and family member at bedside, agree with impression, treatment indications, recommendations and plan. s/o to Dr Walters regarding admission Admit to Dr Araujo 08/12/18 18:52 08/12/18 19:00 *DC/Admit/Observation/Transfer Diagnosis at time of Disposition: Shortness of breath CHF exacerbation Qualifiers: Heart failure type: unspecified Qualified Code(s): I50.9 - Heart failure, unspecified - Discharge Dispostion Condition at time of disposition: Stable Decision to Admit order: Yes Decision to Admit order Date/Time: 08/12/18 18:38 Decision to Admit Order Category Date Time Status Decision to Admit to Hospital Routine Admission 08/12/18 18:36 Ordered - Referrals - Patient Instructions - Post Discharge Activity
[2018-08-12] MEDS ORDERED: FUROSEMIDE 40 MG/4 ML INJECTABLE VIAL ONE (18:39)
--- NOTE | 2018-08-12 19:44 | PN ---
Teaching Attending Note Name of Resident: Amelie Batista ATTENDING PHYSICIAN STATEMENT I saw and evaluated the patient. I reviewed the resident's note and discussed the case with the resident. I agree with the resident's findings and plan as documented. SUBJECTIVE: Patient is an 83 year old man with PMH of Parkinsons disease, HTN, Polymyalgia rheumatica, right drop foot, prostate cancer, Piriformis syndrome right, shingles, HLD, lumbar degenerative disc disease and bilateral hydronephrosis presenting with 1 month of worsening bilateral lower extremity edema with new onset of dyspnea upon exertion and at rest over the past 4-5 days. As per family at bedside, patient was advised by his PCP to report to the ED for further evaluation for CHF, with CXR showing pulmonary vascular congestion. Denies fever, chills, chest pain, palpitation, dizziness, weakness, nausea, vomiting, diarrhea, abdominal pain, bladder and bowel problems, leg swelling, No sick contacts or travel. No new changes in medications. No suspicious food intake OBJECTIVE: Alert Vital Signs Period Temp Pulse Resp BP Sys/Valenzuela Pulse Ox Last 24 Hr 97.6 F 66-68 16 152-172/61-91 95-96 HEENT: No Jaundice, eye redness or discharge, PERRLA, EOMI. Normocephalic, atraumatic. External ears are normal and hearing is grossly intact. No nasal discharge. Neck: Supple, nontender. No palpable adenopathy or thyromegaly. No JVD Chest: Good effort. Right basilar rales. Clear to percussion. Heart: Regular. No S3, rub or murmur Abdomen: Not distended, soft, nontender and no HSM. No rebound or guarding. Normal bowel sounds. Ext: Peripheral pulses intact. Leg edema. Skin: Warm and dry. No petechiae, rash or ecchymosis. Neuro: Alert. Oriented x3. CN 2-12 grossly intact. Sensation grossly intact in all four extremities and DTR are symmetric. Psych: Appropriate mood and affect. Good insight. Home Medications Medication Instructions Recorded Amlodipine Besylate [Norvasc -] 5 mg PO DAILY 08/12/18 Carbidopa/Levodopa *Cr* 25/100 1 combo PO BID 08/12/18 [Sinemet *Cr* 25/100 -] Fluticasone Prop 0.05% Nasal 1 - 2 spray NS DAILY 08/12/18 [Flonase -] Furosemide [Lasix] 40 mg PO DAILY 08/12/18 Gabapentin [Neurontin] 300 mg PO DAILY 08/12/18 Glucosamine/Chondroitn/C/Ignacio 1 each PO DAILY 08/12/18 [Glucosamine-Chondr Complex Tab] Mirtazapine 7.5 mg PO DAILY 08/12/18 Pramipexole Dihydrochloride 0.5 mg PO HS 08/12/18 [Mirapex -] Prednisone 10 mg PO DAILY 08/12/18 Sennosides [Senna] 8.6 mg PO DAILY 08/12/18 Abnormal Lab Results 08/12/18 17:30 BUN 21 H ALT 11 L B-Natriuretic Peptide 98738.5 H Albumin 3.2 L ASSESSMENT AND PLAN: 1. CHF Exacerbation - Likely due primarily to inadequate diuresis. CXR shows vascular congestion, blunted right CP angle, cardiomegaly and possible retrocardiac infiltrate. EKG shows NSR with 1o AV block, prolonged QT and no significant ST-T wave changes. Initial troponin is negative. ECHO from 06/21/17 showed mildly reduced LV systolic function and moderate lateral wall hypokinesis. At that time, drafter recommended stopping Amlodipine, and to add Diovan and Carvedilol - both drugs were not added and he is still on amlodipne. Will get a Chest CT (?infiltrate ?effusion), ECHO and give escalating doses of IV lasix to determine the effective dose; elevate legs at night, stop amlodipine , give diovan, low salt diet and get daily standing weight. Ask drafter if he is a candidate for Entresto. Unclear whether bilateral hydronephrosis had been comprehensively evaluated - will repeat kidney sonogram and consult urology if necessary. Liaise with PCP to taper prednisone to the lowest effective dose. 2. Hypoalbuminemia - Possibly due to combined effects of malnutrition and inflammation associated with comorbid chronic conditions. Will ensure adequate dietary protein intake and also consult staff research scientist. 3. Hypertension - Stop amlodipine. Give diovan. Nonpharmacologic measures to control hypertension like weight loss, salt restriction and exercise discussed. 4. DVT prophylaxis - Lovenox 40 mg SQ q 24 hours. 5. Advance directives - Full code
--- NOTE | 2018-08-12 20:27 | HP ---
Admitting History and Physical - Primary Care Physician PCP: Dr Celestin - Admission Chief Complaint: Chronic leg swelling and SOBx 5 days History of Present Illness: Pt is an 83YOM with significant past medical history of HTN, Parkinsons, Polymyalgia rheumatica, drop foot right, prostate cancer, Piriformis syndrome right, shingles, HLD, lumbar degenerative disc disease, blt hydronephrosis presenting with 1 month of worsening bilateral lower extremity edema with new onset of dyspnea upon exertion and at rest over the past 4-5 days. As per family at bedside, patient was advised by his PCP to report to the ED for further evaluation for chf, with cxr +pulmonary vascular congestion. History Source: Patient, Family Member - Past Medical History Cardiovascular: Yes: HTN - Smoking History Smoking history: Former smoker (Quit 25 years) Have you smoked in the past 12 months: No If you are a former smoker, when did you quit?: 25 yrs ago - Alcohol/Substance Use Hx Alcohol Use: No - Social History Usual Living Arrangement: Yes: With Spouse ADL: Independent Occupation: Retired rail maintenance worker Home Medications - Allergies Allergies/Adverse Reactions: Allergies Allergy/AdvReac Type Severity Reaction Status Date / Time No Known Allergies Allergy Verified 06/21/17 09:40 - Home Medications Home Medications: Ambulatory Orders Amlodipine Besylate [Norvasc -] 5 mg PO DAILY 08/12/18 Carbidopa/Levodopa *Cr* 25/100 [Sinemet *Cr* 25/100 -] 1 combo PO TID 08/12/18 Fluticasone Prop 0.05% Nasal [Flonase -] 1 - 2 spray NS DAILY 08/12/18 Furosemide [Lasix] 40 mg PO DAILY 08/12/18 Gabapentin [Neurontin] 300 mg PO DAILY 08/12/18 Glucosamine/Chondroitn/C/Ignacio [Glucosamine-Chondr Complex Tab] 1 each PO DAILY 08/12/18 Mirtazapine 7.5 mg PO DAILY 08/12/18 Pramipexole Dihydrochloride [Mirapex -] 0.5 mg PO HS 08/12/18 Prednisone 10 mg PO DAILY 08/12/18 Sennosides [Senna] 8.6 mg PO DAILY 08/12/18 Review of Systems - Review of Systems Constitutional: denies: Chills, Diaphoresis, Fever, Lethargy, Loss of Appetite Eyes: denies: Blurred Vision HENT: denies: Difficult Swallowing, Ear Discharge, Ear Pain, Throat Pain Cardiovascular: reports: Edema, Shortness of Breath. denies: Chest Pain, Palpitations Respiratory: reports: Exercise Intolerance, Orthopnea, PND, SOB, SOB on Exertion. denies: Cough, Hemoptysis, Wheezing Gastrointestinal: denies: Abdominal Pain, Constipation, Diarrhea Genitourinary: denies: Burning, Dysuria, Flank Pain, Frequency, Testicular Swelling Musculoskeletal: reports: Back Pain (Chronic) Neurological: reports: Tremors (Parkinsons). denies: Change in LOC, Change in Speech, Confusion, Dizziness, Syncope Physical Examination Vital Signs: Vital Signs Temperature 97.6 F 08/12/18 15:50 Pulse Rate 66 08/12/18 18:55 Respiratory Rate 16 08/12/18 15:50 Blood Pressure 172/61 H 08/12/18 18:55 O2 Sat by Pulse Oximetry (%) 95 08/12/18 18:55 Constitutional: Yes: No Distress, Calm Eyes: Yes: Conjunctiva Clear, EOM Intact. No: Sclera Icterus HENT: Yes: Atraumatic Neck: Yes: Supple Cardiovascular: Yes: S1, S2 Respiratory: Yes: Rales (Bibasilar) Gastrointestinal: Yes: Normal Bowel Sounds, Soft Musculoskeletal: No: Back Pain, Joint Stiffness, Joint Swelling Edema: LLE: 3+ (Up to cleary bilaterally), RLE: 3+ (Up to cleary bilaterally) Peripheral Pulses WNL: Yes Neurological: Yes: Alert, Oriented ...Motor Strength: WNL, LUE, LLE, RUE, RLE Psychiatric: Yes: Alert, Oriented Labs: CBC, BMP 08/12/18 17:30 Imaging - Results Chest X-ray: Report Reviewed, Image Reviewed Assessment/Plan Ambulatory Orders Amlodipine Besylate [Norvasc -] 5 mg PO DAILY 08/12/18 Carbidopa/Levodopa *Cr* 25/100 [Sinemet *Cr* 25/100 -] 1 combo PO BID 08/12/18 Fluticasone Prop 0.05% Nasal [Flonase -] 1 - 2 spray NS DAILY 08/12/18 Furosemide [Lasix] 40 mg PO DAILY 08/12/18 Gabapentin [Neurontin] 300 mg PO DAILY 08/12/18 Glucosamine/Chondroitn/C/Ignacio [Glucosamine-Chondr Complex Tab] 1 each PO DAILY 08/12/18 Mirtazapine 7.5 mg PO DAILY 08/12/18 Pramipexole Dihydrochloride [Mirapex -] 0.5 mg PO HS 08/12/18 Prednisone 10 mg PO DAILY 08/12/18 Sennosides [Senna] 8.6 mg PO DAILY 08/12/18 Active Medications Carvedilol (Coreg -) 6.25 mg PO BID [facility]UEL Enoxaparin Sodium (Lovenox -) 40 mg SQ DAILY [facility]IGU[facility] Valsartan (Diovan -) 80 mg PO DAILY MIGUEL Assessment/Plan Pt is an 83YOM with significant past medical history of HTN, Parkinsons, Polymyalgia rheumatica, drop foot right, prostate cancer, Piriformis syndrome right, shingles, HLD, lumbar degenerative disc disease, blt hydronephrosis presenting with 1 month of worsening bilateral lower extremity edema with new onset of dyspnea upon exertion and at rest over the past 4-5 days. Assessment: HTN, Parkinsons, Polymyalgia rheumatica, drop foot right, prostate cancer, Piriformis syndrome right, shingles, HLD, lumbar degenerative disc disease, blt hydronephrosis Plan: Echo Card consult- Dr Roth Following recs from last admission- Coreg, diovan trend trops follow UA, CBC CT chest Lasix 40mg iv given in ED Monitor stricty Ia and Os Daily weights Fluid restriction Salt restricted diet Lovenox No standing fluids Code: DNR/DNI- Signed document in chart pending seconf physician signature Dispo: Tele Visit type - Emergency Visit Emergency Visit: Yes ED Registration Date: 08/12/18 Care time: The patient presented to the Emergency Department on the above date and was hospitalized for further evaluation of their emergent condition. - New Patient This patient is new to me today: Yes Date on this admission: 08/13/18 - Critical Care Critical Care patient: No
[2018-08-12 21:09] LABS: URINE APPEARANCE CLEAR; URINE BILIRUBIN NEGATIVE (NEGATIVE); URINE COLOR YELLOW; URINE GLUCOSE (UA) NEGATIVE (NEGATIVE); URINE KETONE NEGATIVE (NEGATIVE); URINE LEUK ESTERASE NEGATIVE (NEGATIVE); URINE NITRITE NEGATIVE (NEGATIVE); URINE PROTEIN NEGATIVE (NEGATIVE); URINE UROBILINOGEN 0.2 mg/dL (0.2-1.0)
[2018-08-12] MEDS: CARVEDILOL 6.25 MG TABLET (FP) PO SCH (21:50)
[2018-08-12] MEDS: ENOXAPARIN NA (PORCINE) 40 MG/0.4 ML DISP.SYRIN SQ SCH (21:50)
[2018-08-12] MEDS: VALSARTAN 80 MG TABLET (UD) PO SCH (21:50)
[2018-08-12 23:29] LABS: BASO % 1.1 % (0-2.0); EOS % 2.2 % (0-4.5); HEMATOCRIT 32.3 % (35.4-49); HEMOGLOBIN 10.5 GM/dL (11.7-16.9); LYMPH % 14.5 % (8-40); MCH 31.3 pg (25.7-33.7); MCHC 32.6 g/dl (32.0-35.9); MEAN CELL VOLUME 96.2 fl (80-96); MEAN PLT VOLUME 8.9 fl (7.5-11.1); NEUT % 73.2 % (42.8-82.8); PLATELET COUNT 323 K/MM3 (134-434); RBC 3.35 M/mm3 (4.00-5.60); RDW 13.9 % (11.9-15.9); WHITE BLOOD COUNT 5.7 K/mm3 (4.0-10.0)
[2018-08-13 01:10] VITALS: BMI 25.1
[2018-08-13 07:57] LABS: HEMATOCRIT 30.1 % (35.4-49); HEMOGLOBIN 10.2 GM/dL (11.7-16.9); MCH 31.4 pg (25.7-33.7); MCHC 33.9 g/dl (32.0-35.9); MEAN CELL VOLUME 92.8 fl (80-96); MEAN PLT VOLUME 8.4 fl (7.5-11.1); PLATELET COUNT 311 K/MM3 (134-434); RBC 3.24 M/mm3 (4.00-5.60); RDW 13.6 % (11.9-15.9); WHITE BLOOD COUNT 5.1 K/mm3 (4.0-10.0)
[2018-08-13 08:19] LABS: INR 1.14 (0.83-1.09); PROTHROMBIN TIME (PATIENT) 13.5 SEC (9.7-13.0)
[2018-08-13 08:27] LABS: BILIRUBIN,TOTAL 0.6 mg/dL (0.2-1); CALCIUM 8.6 mg/dL (8.5-10.1); CREATININE 0.9 mg/dL (0.55-1.3); PHOSPHOROUS 3.3 mg/dL (2.5-4.9); POTASSIUM 3.3 mmol/L (3.5-5.1); TOT PROT 6.1 g/dl (6.4-8.2)
[2018-08-13] MEDS ORDERED: POTASSIUM CHLORIDE TABS 20 MEQ TABLET.ER (FP) PO ONE (09:15)
[2018-08-13] MEDS: VALSARTAN 80 MG TABLET (UD) PO SCH (10:29)
[2018-08-13] MEDS: CARVEDILOL 6.25 MG TABLET (FP) PO SCH ×2 (10:29→21:09)
[2018-08-13] MEDS: FUROSEMIDE 40 MG/4 ML INJECTABLE VIAL IVPUSH SCH (10:29)
[2018-08-13] MEDS: ENOXAPARIN NA (PORCINE) 40 MG/0.4 ML DISP.SYRIN SQ SCH (10:30)
--- NOTE | 2018-08-13 10:42 | CON.CARD ---
Consult Consult Specialty:: Cardiology Referred by:: Hospitalist Medicine Reason for Consultation:: CHF - History of Present Illness Chief Complaint: Dyspnea, LE edema History of Present Illness: Patient is an 83 year old man with PMH of Parkinsons disease, HTN, Polymyalgia rheumatica, right drop foot, prostate cancer, Piriformis syndrome right, shingles, HLD, lumbar degenerative disc disease and bilateral hydronephrosis presented to PMD with several days of worsening bilateral lower extremity edema with orthopnea, PND, dyspnea upon exertion and at rest over the past 4-5 days. CXR showing pulmonary vascular congestion. Hen denies chest pain, palpitation, near or true syncope, NSAID use or salt intake. Symptoms improving with diuresis. - History Source History Provided By: Patient Limitations to Obtaining History: No Limitations - Past Medical History Cardio/Vascular: Yes: HTN - Alcohol/Substance Use Hx Alcohol Use: No - Smoking History Smoking history: Former smoker (Quit 25 years) Have you smoked in the past 12 months: No If you are a former smoker, when did you quit?: 25 yrs ago - Social History ADL: Independent Occupation: Retired maintenance worker swimming pool Home Medications - Allergies Allergies/Adverse Reactions: Allergies Allergy/AdvReac Type Severity Reaction Status Date / Time No Known Allergies Allergy Verified 06/21/17 09:40 - Home Medications Home Medications: Ambulatory Orders Amlodipine Besylate [Norvasc -] 5 mg PO DAILY 08/12/18 Carbidopa/Levodopa *Cr* 25/100 [Sinemet *Cr* 25/100 -] 1 combo PO TID 08/12/18 Fluticasone Prop 0.05% Nasal [Flonase -] 1 - 2 spray NS DAILY 08/12/18 Furosemide [Lasix] 40 mg PO DAILY 08/12/18 Gabapentin [Neurontin] 300 mg PO DAILY 08/12/18 Glucosamine/Chondroitn/C/Ignacio [Glucosamine-Chondr Complex Tab] 1 each PO DAILY 08/12/18 Mirtazapine 7.5 mg PO DAILY 08/12/18 Pramipexole Dihydrochloride [Mirapex -] 0.5 mg PO HS 08/12/18 Prednisone 10 mg PO DAILY 08/12/18 Sennosides [Senna] 8.6 mg PO DAILY 08/12/18 Review of Systems - Review of Systems Cardiovascular: reports: Edema, Shortness of Breath Respiratory: reports: Exercise Intolerance, Orthopnea, PND, SOB, SOB on Exertion Vital Signs: Vital Signs Temperature 98.2 F 08/13/18 10:00 Pulse Rate 62 08/13/18 10:00 Respiratory Rate 18 08/13/18 10:00 Blood Pressure 153/51 L 08/13/18 10:00 O2 Sat by Pulse Oximetry (%) 99 08/12/18 22:00 Constitutional: Yes: No Distress, Calm Neck: Yes: Supple Respiratory: Yes: Regular, Diminished Gastrointestinal: Yes: Normal Bowel Sounds, Soft Cardiovascular: Yes: Regular Rate and Rhythm JVD: No Carotid Bruit: No Heart Sounds: Yes: S1, S2 Murmur: Yes: Systolic Murmur, Grade 1 Edema: Yes Edema: LLE: 1+, RLE: 1+ Neurological: Yes: Tremors - Other Data Labs, Other Data: CBC, BMP 08/13/18 06:48 08/13/18 06:48 INR, PTT INR 1.14 (0.83-1.09) H 08/13/18 06:48 Troponin, BNP 08/12/18 08/12/18 08/13/18 17:30 23:40 06:48 Troponin I 0.04 0.04 0.05 B-Natriuretic Peptide 64643.5 H Troponin, BNP 08/12/18 08/12/18 08/13/18 17:30 23:40 06:48 Troponin I 0.04 0.04 0.05 B-Natriuretic Peptide 02049.5 H NSR @ 75 1st deg AVB PVC prolonged QTc 504 msec Echo: Pending Ejection Fraction %: LVEF > or = 40 % Imaging - Results Chest X-ray: Report Reviewed (Congestion) Cat Scan: Report Reviewed (Congestion, bilateral effusion R>L) Problem List - Problems (1) CHF exacerbation Code(s): I50.9 - HEART FAILURE, UNSPECIFIED Qualifiers: Heart failure type: combined systolic and diastolic Qualified Code(s): I50.43 - Acute on chronic combined systolic (congestive) and diastolic ( congestive) heart failure (2) HTN (hypertension) Code(s): I10 - ESSENTIAL (PRIMARY) HYPERTENSION Qualifiers: Hypertension type: essential hypertension Qualified Code(s): I10 - Essential (primary) hypertension (3) Hyperlipidemia Code(s): E78.5 - HYPERLIPIDEMIA, UNSPECIFIED Qualifiers: Hyperlipidemia type: pure hypercholesterolemia Qualified Code(s): E78.00 - Pure hypercholesterolemia, unspecified; E78.0 - Pure hypercholesterolemia (4) Hypertensive cardiomyopathy Code(s): I11.9 - HYPERTENSIVE HEART DISEASE WITHOUT HEART FAILURE; I43 - CARDIOMYOPATHY IN DISEASES CLASSIFIED ELSEWHERE Qualifiers: Heart failure presence: with heart failure Qualified Code(s): I11.0 - Hypertensive heart disease with heart failure; I43 - Cardiomyopathy in diseases classified elsewhere (5) Parkinson disease Code(s): G20 - PARKINSON'S DISEASE (6) Polymyalgia rheumatica Code(s): M35.3 - POLYMYALGIA RHEUMATICA (7) Prolonged Q-T interval on ECG Code(s): R94.31 - ABNORMAL ELECTROCARDIOGRAM [ECG] [EKG] Assessment/Plan 06/21/2017 Echo Mildly decreased LV fxn with moderate lateral wall HK, mild MR, TR, AR 1. Acute on chronic systolic/diastolic heart failure 2. Hypertensive cardiomyopathy not at goal control 3. CAD, angina pectoris 4. Hyperlipidemia 5. Parkinson disease 6. Polymyalgia rheumatica 7. Prostate cancer 8. Anemia 9. Prolonged QT P:1. IV diuresis with monitor diuretic response, renal fxn and electrolytes, replete K, Mg as needed 2. Agree with change Norvasc 5 qd to carvedilol 6.25 bid, add Diovan 80 qd with uptitration as tolerated, continue pravachol 40 qhs 3. Trend trops to document peak, avoid QT prolonging agents, repeat ECG 4. Echo to assess ventricular and valve fxn 5. Thank you for consultative opportunity
--- NOTE | 2018-08-13 11:54 | PN ---
Physical Exam: SUBJECTIVE: Patient seen this morning and reports he is feeling much better. Patient reports he urinated a lot overnight. OBJECTIVE: Vital Signs Temperature 98.2 F 08/13/18 10:00 Pulse Rate 62 08/13/18 10:00 Respiratory Rate 18 08/13/18 10:00 Blood Pressure 153/51 L 08/13/18 10:00 O2 Sat by Pulse Oximetry (%) 98 08/13/18 09:00 GENERAL: The patient is awake, alert, and fully oriented, in no acute distress. HEAD: Normal with no signs of trauma. EYES: PERRL, extraocular movements intact, ENT: moist mucous membranes. LUNGS: Breath sounds equal, clear to auscultation bilaterally, no wheezes, no crackles, no accessory muscle use. HEART: Regular rate and rhythm, S1, S2 without murmur, rub or gallop. ABDOMEN: Soft, nontender, nondistended, normoactive bowel sounds, EXTREMITIES: 2+ pulses, warm, well-perfused, no edema. SKIN: Warm, dry, normal turgor, no rashes or lesions noted CBCD WBC 5.1 K/mm3 (4.0-10.0) 08/13/18 06:48 RBC 3.24 M/mm3 (4.00-5.60) L 08/13/18 06:48 Hgb 10.2 GM/dL (11.7-16.9) L 08/13/18 06:48 Hct 30.1 % (35.4-49) L 08/13/18 06:48 MCV 92.8 fl (80-96) 08/13/18 06:48 MCHC 33.9 g/dl (32.0-35.9) 08/13/18 06:48 RDW 13.6 % (11.9-15.9) 08/13/18 06:48 Plt Count 311 K/MM3 (134-434) 08/13/18 06:48 MPV 8.4 fl (7.5-11.1) 08/13/18 06:48 CMP Sodium 142 mmol/L (136-145) 08/13/18 06:48 Potassium 3.3 mmol/L (3.5-5.1) L 08/13/18 06:48 Chloride 103 mmol/L (98-107) 08/13/18 06:48 Carbon Dioxide 32 mmol/L (21-32) 08/13/18 06:48 Anion Gap 7 MMOL/L (8-16) L 08/13/18 06:48 BUN 17 mg/dL (7-18) 08/13/18 06:48 Creatinine 0.9 mg/dL (0.55-1.3) 08/13/18 06:48 Calcium 8.6 mg/dL (8.5-10.1) 08/13/18 06:48 Total Bilirubin 0.6 mg/dL (0.2-1) 08/13/18 06:48 AST 15 U/L (15-37) 08/13/18 06:48 ALT 7 U/L (13-61) L 08/13/18 06:48 Alkaline Phosphatase 104 U/L (45-117) 08/13/18 06:48 Total Protein 6.1 g/dl (6.4-8.2) L 08/13/18 06:48 Albumin 3.0 g/dl (3.4-5.0) L 08/13/18 06:48 Active Medications Carbidopa/Levodopa (Sinemet *Cr* 25/100 -) 1 combo PO TID [facility] Carvedilol (Coreg -) 6.25 mg PO BID [facility] Last Admin: 08/13/18 10:29 Dose: 6.25 mg Enoxaparin Sodium (Lovenox -) 40 mg SQ DAILY [facility] Last Admin: 08/13/18 10:30 Dose: 40 mg Furosemide (Lasix Injection -) 40 mg IVPUSH DAILY [facility] Last Admin: 08/13/18 10:29 Dose: 40 mg Furosemide (Lasix Injection -) 40 mg IVPUSH ONCE ONE Stop: 08/13/18 14:01 Valsartan (Diovan -) 80 mg PO DAILY [facility] Last Admin: 08/13/18 10:29 Dose: [address]: pulmonary vascular congestion including cardiomegaly, mild interstitial thickening, bilatera pleural effusions, bilateral flank subcutaneous edema, small pericardial effusion ASSESSMENT/PLAN: Patient is a 83 y/o male with a history of HTN, Parkinson's, polymyalgia rheumatica, prostate cancer s/p radiotherapy and chemotherapy, and lumbar degenerative disease who presents for CHF exacerbation. #systolic CHF exacerbation - lasix 40 IV - ECHO: LV normal LA mildly dilated, RA moderately dilated, moderate aortic regurg, LV sys fxn mild-moderately reduced - carvedilol 6.25 BID, diovan 80, pravachol 40 qhs - avoid QTC prolonging agents, - walk with PT tomorrow if at baseline can go #Parkinsons - continue carbidopa/levodopa #Polymyalgia rheumaica - followed by Dr. Brown - 10 mg prednisone a day #Ascending Aortic Aneurysm - found on CT, from 4.2 to 4.5 - continue to monitor #DVT ppx - lovenox 40 daily -US no evidence of dvt's #kidney fxn - Renal US: bilateral pleural effusions, bilateral renal cysts, mild atrophic kidneys with no evidence of hydro FEN - low sodium diet - 1L fluid restriction - replete K Dispo: monitor on tele, can likely go tomorrow after PT sees him Visit type - Emergency Visit Emergency Visit: No - New Patient This patient is new to me today: Yes Date on this admission: 08/13/18 - Critical Care Critical Care patient: No
--- NOTE | 2018-08-13 13:22 | ECHO ---
Name: TASNEEM WAY Exam:Adult Echocardiogram Study Date: 08/13/2018 08:24 AM Age: 83 yrs Reason For Study: chf Height: 72 in Weight: 190 lb BSA: 2.1 m2 MMode/2D Measurements & Calculations IVSd: 1.1 cm Ao root diam: 4.2 cm LVIDd: 5.6 cm LA dimension: 4.9 cm LVIDs: 4.0 cm ACS: 2.2 cm LVPWd: 1.1 cm IVSs: 1.6 cm LVPWs: 1.3 cm EDV(Teich): 151.0 ml ESV(Teich): 71.4 ml Doppler Measurements & Calculations MV E max jeremy: 74.2 cm/sec Ao V2 max: 119.9 cm/sec MV A max jeremy: 56.6 cm/sec Ao max P.8 mmHg MV E/A: 1.3 Ao V2 mean: 85.3 cm/sec Ao mean P.3 mmHg Ao V2 VTI: 28.2 cm AI P1/2t: 589.0 msec AI max jeremy: 348.9 cm/sec TR max jeremy: 237.5 cm/sec AI max P.7 mmHg TR max P.6 mmHg AI dec slope: 173.5 cm/sec2 PI end-d jeremy: 92.3 cm/sec Med Peak E' Jeremy: 4.4 cm/sec Med E/e': 16.9 Lat Peak E' Jeremy: 6.5 cm/sec Lat E/e': 11.4 Procedure A two-dimensional transthoracic echocardiogram with color flow and Doppler was performed. Left Ventricle The left ventricle is grossly normal size. The left ventricle is not well visualized. Left ventricula r systolic function is mild to moderately reduced. Left Ventricular Filling pattern is normal for age. Regional wall motion abnormalities cannot be excluded due to limited visualization. Right Ventricle The right ventricle is not well visualized. Atria The left atrium is moderately dilated. The right atrium is moderately dilated. Mitral Valve There is mild mitral valve thickening. There is no mitral valve stenosis. There is mild mitral regurg itation. Tricuspid Valve There is mild tricuspid valve thickening. There is no tricuspid stenosis. There is mild tricuspid regurgitation. Right ventricular systolic pressure is normal. Aortic Valve The aortic valve is not well visualized. No hemodynamically significant valvular aortic stenosis. Mod erate aortic regurgitation. Great Vessels Mild aortic root dilatation. Pericardium/Pleura There is no pericardial effusion. Interpretation Summary The left ventricle is grossly normal size. The left atrium is moderately dilated. The right atrium is moderately dilated. Moderate aortic regurgitation. The left ventricle is not well visualized. Left ventricular systolic function is mild to moderately reduced. Regional wall motion abnormalities cannot be excluded due to limited visualization. There is mild mitral regurgitation. Left Ventricular Filling pattern is normal for age. There is mild tricuspid regurgitation. Right ventricular systolic pressure is normal. Mild aortic root dilatation. MD Srikanth Nguyễn 08/13/2018 01:21 PM
--- NOTE | 2018-08-13 13:25 | PN ---
Teaching Attending Note Name of Resident: Anuradha Melenedz ATTENDING PHYSICIAN STATEMENT I saw and evaluated the patient. I reviewed the resident's note and discussed the case with the resident. I agree with the resident's findings and plan as documented. SUBJECTIVE: Feels much improved - no further SOB, improvement in LE edema. No CP /palps/orthopnea. OBJECTIVE: Afebrile, Hemodynamically Stable. Last Vital Signs Temp Pulse Resp BP Pulse Ox 98.2 F 62 18 153/51 L 98 08/13/18 10:00 08/13/18 10:00 08/13/18 10:08/13/18 10:08/13/18 09:00 HEENT - Atraumatic, Normocephalic Heart - S1, S2, RRR Lungs - decreased air entry at bases Abdomen - Soft, non-tender. Bowel Sounds normal. Extremities - mild edema, no calf tenderness Laboratory Results - last 24 hr 08/12/18 08/12/18 08/12/18 17:30 17:30 19:12 WBC 5.7 RBC 3.35 L Hgb 10.5 L Hct 32.3 L MCV 96.2 H MCH 31.3 MCHC 32.6 RDW 13.9 Plt Count 323 MPV 8.9 D Absolute Neuts (auto) 4.2 Neutrophils % 73.2 Lymphocytes % 14.5 D Monocytes % 9.0 Eosinophils % 2.2 D Basophils % 1.1 Nucleated RBC % 0 PT with INR INR PTT (Actin FS) Sodium 142 Potassium 3.7 Chloride 106 Carbon Dioxide 28 Anion Gap 8 BUN 21 H Creatinine 0.9 Est GFR (CKD-EPI)AfAm 90.58 Est GFR (CKD-EPI)NonAf 78.15 Random Glucose 88 Hemoglobin A1c % Calcium 8.6 Phosphorus Magnesium 1.9 Total Bilirubin 0.6 AST 18 ALT 11 L Alkaline Phosphatase 116 Creatine Kinase 70 Troponin I 0.04 B-Natriuretic Peptide 86778.5 H Total Protein 6.5 Albumin 3.2 L Triglycerides Cholesterol Total LDL Cholesterol HDL Cholesterol TSH Urine Color Yellow Urine Appearance Clear Urine pH 7.0 Ur Specific [place] 1.007 L Urine Protein Negative Urine Glucose (UA) Negative Urine Ketones Negative Urine Blood Negative Urine Nitrite Negative Urine Bilirubin Negative Urine Urobilinogen 0.2 Ur Leukocyte Esterase Negative 08/12/18 08/13/18 08/13/18 23:40 06:48 06:48 WBC 5.1 RBC 3.24 L Hgb 10.2 L Hct 30.1 L MCV 92.8 MCH 31.4 MCHC 33.9 RDW 13.6 Plt Count 311 MPV 8.4 Absolute Neuts (auto) Neutrophils % Lymphocytes % Monocytes % Eosinophils % Basophils % Nucleated RBC % PT with INR 13.50 H INR 1.14 H PTT (Actin FS) 32.0 Sodium Potassium Chloride Carbon Dioxide Anion Gap BUN Creatinine Est GFR (CKD-EPI)AfAm Est GFR (CKD-EPI)NonAf Random Glucose Hemoglobin A1c % Calcium Phosphorus Magnesium Total Bilirubin AST ALT Alkaline Phosphatase Creatine Kinase Troponin I 0.04 B-Natriuretic Peptide Total Protein Albumin Triglycerides Cholesterol Total LDL Cholesterol HDL Cholesterol TSH Urine Color Urine Appearance Urine pH Ur Specific [place] Urine Protein Urine Glucose (UA) Urine Ketones Urine Blood Urine Nitrite Urine Bilirubin Urine Urobilinogen Ur Leukocyte Esterase 08/13/18 08/13/18 06:48 06:48 WBC RBC Hgb Hct MCV MCH MCHC RDW Plt Count MPV Absolute Neuts (auto) Neutrophils % Lymphocytes % Monocytes % Eosinophils % Basophils % Nucleated RBC % PT with INR INR PTT (Actin FS) Sodium 142 Potassium 3.3 L Chloride 103 Carbon Dioxide 32 Anion Gap 7 L BUN 17 Creatinine 0.9 Est GFR (CKD-EPI)AfAm 90.58 Est GFR (CKD-EPI)NonAf 78.15 Random Glucose 77 Hemoglobin A1c % 5.1 Calcium 8.6 Phosphorus 3.3 Magnesium 2.0 Total Bilirubin 0.6 AST 15 ALT 7 L Alkaline Phosphatase 104 Creatine Kinase 107 Troponin I 0.05 B-Natriuretic Peptide Total Protein 6.1 L Albumin 3.0 L Triglycerides 64 Cholesterol 194 Total LDL Cholesterol 137 H HDL Cholesterol 51 TSH 2.09 D Urine Color Urine Appearance Urine pH Ur Specific [place] Urine Protein Urine Glucose (UA) Urine Ketones Urine Blood Urine Nitrite Urine Bilirubin Urine Urobilinogen Ur Leukocyte Esterase Current Medications Generic Name Dose Route Start Last Admin Trade Name Freq PRN Reason Stop Dose Admin Atorvastatin Calcium 40 mg 08/13/18 22:00 Lipitor - PO HS [facility] Carbidopa/Levodopa 1 combo 08/13/18 14:00 Sinemet *Cr* 25/100 - PO TID [facility] Carvedilol 6.25 mg 08/12/18 22:00 08/13/18 10:29 Coreg - PO 6.25 mg BID [facility] Administration Enoxaparin Sodium 40 mg 08/12/18 21:30 08/13/18 10:30 Lovenox - SQ 40 mg DAILY [facility] Administration Furosemide 40 mg 08/13/18 10:00 08/13/18 10:29 Lasix Injection - IVPUSH 40 mg DAILY [facility] Administration Furosemide 40 mg 08/13/18 14:00 Lasix Injection - IVPUSH 08/13/18 14:01 ONCE ONE Valsartan 80 mg 08/12/18 21:30 08/13/18 10:29 Diovan - PO 80 mg DAILY [facility] Administration Home Medications Medication Instructions Recorded Amlodipine Besylate [Norvasc -] 5 mg PO DAILY 08/12/18 Carbidopa/Levodopa *Cr* 25/100 1 combo PO TID 08/12/18 [Sinemet *Cr* 25/100 -] Fluticasone Prop 0.05% Nasal 1 - 2 spray NS DAILY 08/12/18 [Flonase -] Furosemide [Lasix] 40 mg PO DAILY 08/12/18 Gabapentin [Neurontin] 100 mg PO TID 08/12/18 Glucosamine/Chondroitn/C/Ignacio 1 each PO DAILY 08/12/18 [Glucosamine-Chondr Complex Tab] Mirtazapine 7.5 mg PO DAILY 08/12/18 Pramipexole Dihydrochloride 0.25 mg PO TID 08/12/18 [Mirapex -] Prednisone 10 mg PO DAILY 08/12/18 Sennosides [Senna] 8.6 mg PO DAILY 08/12/18 Metoprolol Succinate [Toprol Xl] 25 mg PO 08/13/18 ASSESSMENT AND PLAN: 83 year old male with history of HTN, Parkinsons, Polymyalgia Rheumatica, R Drop Foot, history of Prostate Ca s/p RTx and CTx, R Piriformis syndrome, HLD, lumbar degenerative disc disease, HX of bilateral hydronephrosis, presents with increasing LE edema and dyspnea on exertion. 1. Acute on Chronic Systolic CHF with bilateral pleural effusions Responding well to IV Lasix diuresis with improvement in dyspnea and LE edema. CT Chest - no infiltrate, vascular congestion, bilateral pleural effusions Echo requested Cardio eval Continue Lasix 40mg IVP Started on Valsartan 80mg, Coreg 6.25mg 2. Parkinson's Disease - Continue Sinemet 3. Ascending Aorta Dilatation - 4.5cm Cardio eval and follow up. 4. HTN - Norvasc and Metoprolol changed to Valsatan, Coreg. Cardiology in agreement. 5. Polymyalgia Rheumatica - resume Prednisone 10mg daily. 6. HLD - Continue Statin 7. Hypokalemia - will replete. DVT Px - Lovenox SQ
[2018-08-13] MEDS: predniSONE 10 MG TABLET (UD) PO SCH (13:57)
[2018-08-13] MEDS: PRAMIPEXOLE DIHYDROCHLORIDE 0.25 MG TABLET PO SCH ×2 (13:57→21:09)
[2018-08-13] MEDS: GABAPENTIN 100 MG CAPSULE (FP) PO SCH ×2 (13:57→21:09)
[2018-08-13] MEDS ORDERED: FUROSEMIDE 40 MG/4 ML INJECTABLE VIAL IVPUSH ONE (14:00)
--- NOTE | 2018-08-13 14:42 | EKG ---
Test Reason : Blood Pressure : / mmHG Vent. Rate : 060 BPM Atrial Rate : 060 BPM P-R Int : 256 ms QRS Dur : 090 ms QT Int : 488 ms P-R-T Axes : 029 007 -24 degrees QTc Int : 488 ms SINUS RHYTHM WITH 1ST DEGREE A-V BLOCK PROLONGED QT ABNORMAL ECG WHEN COMPARED WITH ECG OF 12-AUG-2018 17:24, PREMATURE VENTRICULAR COMPLEXES ARE NO LONGER PRESENT PREMATURE SUPRAVENTRICULAR COMPLEXES ARE NO LONGER PRESENT Confirmed by LA RAJPUT, LORENZA ([id number]) on 08/13/2018 2:42:12 PM Referred By: Nanci RODRIGUEZ Confirmed By:LORENZA TOVAR MD
--- NOTE | 2018-08-13 15:44 | EKG ---
Test Reason : Blood Pressure : / mmHG Vent. Rate : 075 BPM Atrial Rate : 066 BPM P-R Int : 238 ms QRS Dur : 104 ms QT Int : 452 ms P-R-T Axes : 078 011 015 degrees QTc Int : 504 ms SINUS RHYTHM WITH 1ST DEGREE A-V BLOCK WITH PREMATURE SUPRAVENTRICULAR COMPLEXES AND WITH FREQUENT PREMATURE VENTRICULAR COMPLEXES PROLONGED QT ABNORMAL ECG WHEN COMPARED WITH ECG OF 21-JUN-2017 11:43, PREMATURE VENTRICULAR COMPLEXES ARE NOW PRESENT PREMATURE SUPRAVENTRICULAR COMPLEXES ARE NOW PRESENT T WAVE INVERSION NO LONGER EVIDENT IN LATERAL LEADS QT HAS LENGTHENED Confirmed by LA RAJPUT, LORENZA ([id number]) on 08/13/2018 3:43:54 PM Referred By: Confirmed By:LORENZA TOVAR MD
[2018-08-13] MEDS ORDERED: MIRTAZAPINE 15 MG TABLET (FP) PO SCH (22:00)
[2018-08-13] MEDS ORDERED: ATORVASTATIN CA 40 MG TABLET (FP) PO SCH (22:00)
[2018-08-14] MEDS: GABAPENTIN 100 MG CAPSULE (FP) PO SCH ×2 (05:44→13:23)
[2018-08-14] MEDS: PRAMIPEXOLE DIHYDROCHLORIDE 0.25 MG TABLET PO SCH ×2 (05:45→13:23)
[2018-08-14 07:17] LABS: HEMATOCRIT 30.1 % (35.4-49); HEMOGLOBIN 10.2 GM/dL (11.7-16.9); MCH 31.7 pg (25.7-33.7); MCHC 33.8 g/dl (32.0-35.9); MEAN CELL VOLUME 93.6 fl (80-96); MEAN PLT VOLUME 8.3 fl (7.5-11.1); PLATELET COUNT 313 K/MM3 (134-434); RBC 3.22 M/mm3 (4.00-5.60); RDW 13.8 % (11.9-15.9); WHITE BLOOD COUNT 6.1 K/mm3 (4.0-10.0)
[2018-08-14 07:40] LABS: ALBUMIN 2.8 g/dl (3.4-5.0); ALK PHOS 102 U/L (45-117); ANION GAP 5 MMOL/L (8-16); BILIRUBIN,TOTAL 0.5 mg/dL (0.2-1); BLOOD UREA NITROGEN 22 mg/dL (7-18); CALCIUM 8.5 mg/dL (8.5-10.1); CHLORIDE 104 mmol/L (98-107); CO2 33 mmol/L (21-32); CREATININE 1.1 mg/dL (0.55-1.3); GLUCOSE,RANDOM 85 mg/dL (74-106); POTASSIUM 3.5 mmol/L (3.5-5.1); SGOT/AST 16 U/L (15-37); SGPT/ALT < 6 U/L (13-61); SODIUM 143 mmol/L (136-145); TOT PROT 5.8 g/dl (6.4-8.2)
[2018-08-14 09:48] VITALS: TEMP 97.8
[2018-08-14] MEDS ORDERED: PT OWN MED DRAWER 7, Y5N ONE (09:54)
--- NOTE | 2018-08-14 09:59 | PN ---
Progress Note, Physician History of Present Illness: Bilateral lower extremity edema with orthopnea, PND, dyspnea upon exertion and at rest improving with diuresis, achieved 12 lbs weight loss since admission?! - Current Medication List Current Medications: Active Medications Atorvastatin Calcium (Lipitor -) 40 mg PO HS [facility] Last Admin: 08/13/18 21:09 Dose: 40 mg Carbidopa/Levodopa (Sinemet *Cr* 25/100 -) 1 combo PO TID [facility] Last Admin: 08/14/18 05:45 Dose: 1 combo Carvedilol (Coreg -) 6.25 mg PO BID [facility] Last Admin: 08/13/18 21:09 Dose: 6.25 mg Enoxaparin Sodium (Lovenox -) 40 mg SQ DAILY [facility] Last Admin: 08/13/18 10:30 Dose: 40 mg Fluticasone Propionate (Flonase -) 2 spray NS DAILY [facility] Fluticasone Propionate (Flonase -) 1 spray NS DAILY [facility] Furosemide (Lasix Injection -) 40 mg IVPUSH DAILY [facility] Last Admin: 08/13/18 10:29 Dose: 40 mg Gabapentin (Neurontin -) 100 mg PO TID [facility] Last Admin: 08/14/18 05:44 Dose: 100 mg Mirtazapine (Remeron -) 7.5 mg PO HS [facility] Last Admin: 08/13/18 21:09 Dose: 7.5 mg Non-Formulary Medication (Glucosamine/Chondroitn/C/Ignacio [Glucosamine-Chondr Complex Tab]) 1 each PO DAILY [facility] Pramipexole Dihydrochloride (Mirapex -) 0.25 mg PO TID [facility] Last Admin: 08/14/18 05:45 Dose: 0.25 mg Prednisone (Deltasone -) 10 mg PO DAILY [facility] Last Admin: 08/13/18 13:57 Dose: 10 mg Senna (Senna -) 1 tab PO DAILY [facility] Valsartan (Diovan -) 80 mg PO DAILY [facility] Last Admin: 08/13/18 10:29 Dose: 80 mg - Objective Vital Signs: Vital Signs Temperature 97.8 F 08/14/18 09:00 Pulse Rate 64 08/14/18 09:00 Respiratory Rate 18 08/14/18 09:00 Blood Pressure 95/45 L 08/14/18 09:00 O2 Sat by Pulse Oximetry (%) 99 08/14/18 09:49 Constitutional: Yes: No Distress, Calm, Thin Neck: Yes: Supple Cardiovascular: Yes: Regular Rate and Rhythm Respiratory: Yes: Regular, Diminished, On Nasal O2 Gastrointestinal: Yes: Normal Bowel Sounds, Soft Edema: No Neurological: Yes: Tremors Labs: CBC, BMP 08/14/18 06:00 08/14/18 06:00 INR, PTT INR 1.14 (0.83-1.09) H 08/13/18 06:48 - ....Imaging Ultrasound: Report Reviewed (Negative for DVT bilaterally Bilateral effusions, renal cysts, no hydro) EKG: Report Reviewed (SR 1st deg AVB improved QTc Tele: NSR) Problem List - Problems (1) CHF exacerbation Code(s): I50.9 - HEART FAILURE, UNSPECIFIED Qualifiers: Heart failure type: combined systolic and diastolic Qualified Code(s): I50.43 - Acute on chronic combined systolic (congestive) and diastolic ( congestive) heart failure (2) HTN (hypertension) Code(s): I10 - ESSENTIAL (PRIMARY) HYPERTENSION Qualifiers: Hypertension type: essential hypertension Qualified Code(s): I10 - Essential (primary) hypertension (3) Hyperlipidemia Code(s): E78.5 - HYPERLIPIDEMIA, UNSPECIFIED Qualifiers: Hyperlipidemia type: pure hypercholesterolemia Qualified Code(s): E78.00 - Pure hypercholesterolemia, unspecified; E78.0 - Pure hypercholesterolemia (4) Hypertensive cardiomyopathy Code(s): I11.9 - HYPERTENSIVE HEART DISEASE WITHOUT HEART FAILURE; I43 - CARDIOMYOPATHY IN DISEASES CLASSIFIED ELSEWHERE Qualifiers: Heart failure presence: with heart failure Qualified Code(s): I11.0 - Hypertensive heart disease with heart failure; I43 - Cardiomyopathy in diseases classified elsewhere (5) Parkinson disease Code(s): G20 - PARKINSON'S DISEASE (6) Polymyalgia rheumatica Code(s): M35.3 - POLYMYALGIA RHEUMATICA (7) Prolonged Q-T interval on ECG Code(s): R94.31 - ABNORMAL ELECTROCARDIOGRAM [ECG] [EKG] Assessment/Plan 08/13/2018 Echo: Normal LV size with mild-mod decreased LV fxn, mod ARABELLA, mild MR , TR, mild ao root dilatation 06/21/2017 Echo Mildly decreased LV fxn with moderate lateral wall HK, mild MR, TR, AR 1. Acute on chronic systolic/diastolic heart failure 2. Hypertensive cardiomyopathy not at goal control 3. CAD, angina pectoris 4. Hyperlipidemia 5. Parkinson disease 6. Polymyalgia rheumatica 7. Prostate cancer 8. Anemia 9. Prolonged QT improving P:1. IV diuresis with monitor diuretic response, renal fxn and electrolytes, replete K, Mg as needed 2. Continue carvedilol 6.25 bid, Diovan 80 qd with uptitration as tolerated, continue Lipitor 40 qhs 3. Trend trops to document peak, avoid QT prolonging agents
[2018-08-14] MEDS ORDERED: FLUTICASONE PROP 0.05% 16 GM NASAL SPRAY NS SCH ×2 (10:00)
[2018-08-14] MEDS ORDERED: [UNRECOGNIZED DRUG - OTHER] PO SCH (10:00)
[2018-08-14] MEDS ORDERED: SENNOSIDES 8.6MG TABLET (FP) PO SCH (10:00)
[2018-08-14] MEDS ORDERED: PATIENT'S OWN MEDICATION (NON-FORMULARY) (Mirtazapine [Mirtazapine] 7.5 MG) PO SCH (10:00)
[2018-08-14] MEDS: FUROSEMIDE 40 MG/4 ML INJECTABLE VIAL IVPUSH SCH (10:03)
[2018-08-14] MEDS: ENOXAPARIN NA (PORCINE) 40 MG/0.4 ML DISP.SYRIN SQ SCH (10:03)
[2018-08-14] MEDS: predniSONE 10 MG TABLET (UD) PO SCH (10:04)
[2018-08-14] MEDS: CARVEDILOL 6.25 MG TABLET (FP) PO SCH (10:04)
[2018-08-14] MEDS: VALSARTAN 80 MG TABLET (UD) PO SCH (10:04)
--- NOTE | 2018-08-14 10:59 | PN ---
Teaching Attending Note Name of Resident: Allison Eagle ATTENDING PHYSICIAN STATEMENT I saw and evaluated the patient. I reviewed the resident's note and discussed the case with the resident. I agree with the resident's findings and plan as documented. SUBJECTIVE: Continued improvement - no further SOB, improvement in LE edema. No CP/palps/orthopnea. OBJECTIVE: Afebrile, Hemodynamically Stable. Desaturating to 87% on RA this AM Last Vital Signs Temp Pulse Resp BP Pulse Ox 97.8 F 64 18 95/45 L 99 08/14/18 09:00 08/14/18 09:00 08/14/18 09:00 08/14/18 09:00 08/14/18 09:49 Heart - S1, S2, RRR Lungs - decreased air entry at bases Abdomen - Soft, non-tender. Bowel Sounds normal. Extremities - mild edema, no calf tenderness Laboratory Results - last 24 hr 08/14/18 08/14/18 06:00 06:00 WBC 6.1 RBC 3.22 L Hgb 10.2 L Hct 30.1 L MCV 93.6 MCH 31.7 MCHC 33.8 RDW 13.8 Plt Count 313 MPV 8.3 Sodium 143 Potassium 3.5 Chloride 104 Carbon Dioxide 33 H Anion Gap 5 L BUN 22 H Creatinine 1.1 Est GFR (CKD-EPI)AfAm 71.07 Est GFR (CKD-EPI)NonAf 61.32 Random Glucose 85 Calcium 8.5 Total Bilirubin 0.5 AST 16 ALT < 6 L Alkaline Phosphatase 102 Total Protein 5.8 L Albumin 2.8 L Current Medications Generic Name Dose Route Start Last Admin Trade Name Freq PRN Reason Stop Dose Admin Atorvastatin Calcium 40 mg 08/13/18 22:00 08/13/18 21:09 Lipitor - PO 40 mg HS [facility] Administration Carbidopa/Levodopa 1 combo 08/13/18 14:00 08/14/18 05:45 Sinemet *Cr* 25/100 - PO 1 combo TID [facility] Administration Carvedilol 6.25 mg 08/12/18 22:00 08/14/18 10:04 Coreg - PO 6.25 mg BID [facility] Administration Enoxaparin Sodium 40 mg 08/12/18 21:30 08/14/18 10:03 Lovenox - SQ 40 mg DAILY [facility] Administration Fluticasone Propionate 2 spray 08/14/18 10:00 08/14/18 10:03 Flonase - NS 2 spray DAILY [facility] Administration Fluticasone Propionate 1 spray 08/14/18 10:00 Flonase - NS DAILY [facility] Furosemide 40 mg 08/13/18 10:00 08/14/18 10:03 Lasix Injection - IVPUSH 40 mg DAILY [facility] Administration Gabapentin 100 mg 08/13/18 14:00 08/14/18 05:44 Neurontin - PO 100 mg TID [facility] Administration Mirtazapine 7.5 mg 08/13/18 22:00 08/13/18 21:09 Remeron - PO 7.5 mg HS [facility] Administration Non-Formulary Medication 1 each 08/14/18 10:00 Glucosamine/Chondroitn/C/Ignacio [Glucosamine-Chondr Complex Tab] PO DAILY [facility] Pramipexole Dihydrochloride 0.25 mg 08/13/18 14:00 08/14/18 05:45 Mirapex - PO 0.25 mg TID [facility] Administration Prednisone 10 mg 08/13/18 13:30 08/14/18 10:04 Deltasone - PO 10 mg DAILY [facility] Administration Senna 1 tab 08/14/18 10:00 08/14/18 10:04 Senna - PO 1 tab DAILY [facility] Administration Valsartan 80 mg 08/12/18 21:30 08/14/18 10:04 Diovan - PO 80 mg DAILY [facility] Administration ASSESSMENT AND PLAN: 83 year old male with history of HTN, Parkinsons, Polymyalgia Rheumatica, R Drop Foot, history of Prostate Ca s/p RTx and CTx, R Piriformis syndrome, HLD, lumbar degenerative disc disease, HX of bilateral hydronephrosis, presents with increasing LE edema and dyspnea on exertion. 1. Acute on Chronic Systolic CHF with bilateral pleural effusions Responding well to IV Lasix diuresis with improvement in dyspnea and LE edema. CT Chest - no infiltrate, vascular congestion, bilateral pleural effusions Echo - Moderately reduced EF Cardio following - recommed continuing Lasix 40mg IVP Started on Valsartan 80mg, Coreg 6.25mg 2. Parkinson's Disease - Continue Sinemet 3. Ascending Aorta Dilatation - 4.5cm Cardio eval and follow up. 4. HTN - Norvasc and Metoprolol changed to Valsatan, Coreg. Cardiology in agreement. 5. Polymyalgia Rheumatica - resumed on Prednisone 10mg daily. 6. HLD - Continue Statin 7. Hypokalemia - repleted. DVT Px - Lovenox SQ
[2018-08-14 15:22] VITALS: BP 143/70; PULSE 63
--- NOTE | 2018-08-14 15:45 | DS ---
Physical Exam: SUBJECTIVE: Patient seen this morning and without complaint. No acute events overnight. OBJECTIVE: Vital Signs Temperature 97.8 F 08/14/18 14:00 Pulse Rate 63 08/14/18 14:00 Respiratory Rate 18 08/14/18 09:00 Blood Pressure 143/70 08/14/18 14:00 O2 Sat by Pulse Oximetry (%) 93 L 08/14/18 14:34 PHYSICAL EXAM GENERAL: The patient is awake, alert, and fully oriented, in no acute distress. HEAD: Normal with no signs of trauma. EYES: PERRL, extraocular movements intact, ENT: moist mucous membranes. LUNGS: Breath sounds equal, clear to auscultation bilaterally, no wheezes, no crackles, no accessory muscle use. HEART: Regular rate and rhythm, S1, S2 without murmur, rub or gallop. ABDOMEN: Soft, nontender, nondistended, normoactive bowel sounds, EXTREMITIES: 2+ pulses, warm, well-perfused, no edema. SKIN: Warm, dry, normal turgor, no rashes or lesions noted LABS Laboratory Results - last 24 hr 08/14/18 08/14/18 06:00 06:00 WBC 6.1 RBC 3.22 L Hgb 10.2 L Hct 30.1 L MCV 93.6 MCH 31.7 MCHC 33.8 RDW 13.8 Plt Count 313 MPV 8.3 Sodium 143 Potassium 3.5 Chloride 104 Carbon Dioxide 33 H Anion Gap 5 L BUN 22 H Creatinine 1.1 Est GFR (CKD-EPI)AfAm 71.07 Est GFR (CKD-EPI)NonAf 61.32 Random Glucose 85 Calcium 8.5 Total Bilirubin 0.5 AST 16 ALT < 6 L Alkaline Phosphatase 102 Total Protein 5.8 L Albumin 2.8 L HOSPITAL COURSE: Date of Admission:08/12/18 Patient is a 83 y/o male with a history of HTN, Parkinson's, polymyalgia rheumatica, prostate cancer s/p radiotherapy and chemotherapy, and lumbar degenerative disease who presents for CHF exacerbation. Patient presented for shortness of breath and leg swelling. Patient was given lasix with adequate output. patients medications were optimized and changed as seen by cardio. patient had a pre and post done and oxygen saturation remained above 90. Patient stable and symptoms resolved. Patient discharged home with instructions of new medications and close follow up with PCP and cardio. ECHO: LV normal LA mildly dilated, RA moderately dilated, moderate aortic regurg , LV sys fxn mild-moderately reduced Chest CT: pulmonary vascular congestion including cardiomegaly, mild interstitial thickening, bilateral pleural effusions, bilateral flank subcutaneous edema, small pericardial effusion, AAA 4.2-4.5 Renal US: bilateral pleural effusions, bilateral renal cysts, mild atrophic kidney's Date of Discharge: 08/14/18 Minutes to complete discharge: 40 Discharge Summary Reason For Visit: CHF Current Active Problems Prolonged Q-T interval on ECG (Acute) Condition: Stable - Instructions Diet, Activity, Other Instructions: You were admitted to the hospital for a exacerbation of your CHF. While you were here we gave you lasix to help with this. We also optimized your medications to help treat your CHF. For continued management of your CHF please take: Lasix 40 mg by mouth once a day Carvedilol 6.25 mg by mouth once a day Diovan 80 mg by mouth once a day Pravachol 40 mg by mouth at night time Please do not take the metoprolol or amlodipine anymore Please continue all your other home medications for your other medical problems. Please make a follow up appointment with the supervisor in charge, Dr. Roth, in one week for continue management of your CHF. You should also make an appointment with your PCP to follow up in one week. Please return to the Emergency Department if you have worsening of symptoms, chest pain, nausea, vomiting, diarrhea, or dizziness. Referrals: Chente Roth MD [Staff Physician] - Disposition: HOME - Home Medications Comprehensive Discharge Medication List: Ambulatory Orders Carbidopa/Levodopa *Cr* 25/100 [Sinemet *Cr* 25/100 -] 1 combo PO TID 08/12/18 Fluticasone Prop 0.05% Nasal [Flonase -] 1 - 2 spray NS DAILY 08/12/18 Gabapentin [Neurontin] 100 mg PO TID 08/12/18 Glucosamine/Chondroitn/C/Ignacio [Glucosamine-Chondr Complex Tab] 1 each PO DAILY 08/12/18 Mirtazapine 7.5 mg PO DAILY 08/12/18 Pramipexole Dihydrochloride [Mirapex -] 0.25 mg PO TID 08/12/18 Prednisone 10 mg PO DAILY 08/12/18 Sennosides [Senna] 8.6 mg PO DAILY 08/12/18 Atorvastatin Ca [Lipitor] 40 mg PO HS #15 tablet 08/14/18 Carvedilol [Coreg -] 6.25 mg PO BID #30 tablet 08/14/18 Furosemide Injection [Lasix Injection -] 40 mg IVPUSH DAILY #15 vial 08/14/18 Valsartan [Diovan] 80 mg PO DAILY #15 tablet 08/14/18 This patient is new to me today: No Emergency Visit: No Critical Care patient: No - Discharge Referral Referred to [facility] Med [facility] No
== END 2018-08-14 16:18 | disposition home or self-care (01) | DRG 292 ==
LOC: JER 15:34 → JERBED 18:36 → J4W 20:55
PROVIDERS: ADMIT Internal Medicine
DX: I11.0 Hypertensive heart disease with heart failure (principal); J98.11 Atelectasis; I50.43 Acute on chronic combined systolic (congestive) and diastolic (congestive) heart failure; I71.4 Abdominal aortic aneurysm, without rupture; M35.3 Polymyalgia rheumatica; M21.371 Foot drop, right foot; G20 Parkinson's disease; E87.6 Hypokalemia; E78.5 Hyperlipidemia, unspecified; R94.31 Abnormal electrocardiogram [ECG] [EKG]; I25.119 Atherosclerotic heart disease of native coronary artery with unspecified angina pectoris; D64.9 Anemia, unspecified
CPT/HCPCS: 36415; 71045-TC-FY; 71250-TC; 76775-TC; 80053; 80061; 81003; 82550; 83036; 83721; 83735; 83880; 84100; 84443; 84484; 85025; 85027; 85610; 85730; 93005; 93010; 93306-TC; 93970-TC; 94761; 97116-GP; 97161-GP; 99284-25

== ENCOUNTER 2019-04-22 17:11 | Inpatient (IN) | payer OTHER ==
[2019-04-22] MEDS ORDERED: ALBUTEROL SO4 2.5/IPRATROPIUM 0.5 INH SOL 3 ML VIAL.NEB. NEB ONE ×2 (17:25→17:27)
[2019-04-22] MEDS ORDERED: NITROGLYCERIN 2% OINTMENT - 1GM PACKET TD ONE ×2 (17:37→17:53)
--- NOTE | 2019-04-22 17:41 | PDOC ---
History of Present Illness - General Chief Complaint: Shortness of Breath Stated Complaint: DIFF. BREATHING Time Seen by Provider: 04/22/19 17:20 History Source: Patient, Family (son), Old Records - History of Present Illness Initial Comments: 04/22/19 17:38 83y M with PMH of Prostate Ca s/p XRT 3y ago, CHF (diastolic and systolic), Thoracic Aortic Aneurysm, Cardiomyopathy, HTN, HLD, Parkinson's Disease, Polymyalgia Rheumatica presenting to ED with SOB x3 weeks getting worse. Pt states he feels short of breath even at rest. He saw his PMD 2d ago, got xray and blood work. Per son, xray showed "some emphysema". Pt also saw a chlorine operator yesterday and was told function tests were normal. Pt was given an inhaler which he used once today. He denies chest pain, cough, congestion, increased leg swelling, headache, abdominal pain, n/v/d, back pain, recent travel, recent surgeries. Quit smoking 30y ago. PMD: Fawad PMH: see hpi PSH: sacroplasty Meds: see med rec Allergies: nkda Social: denies Past History - Past Medical History Allergies/Adverse Reactions: Allergies Allergy/AdvReac Type Severity Reaction Status Date / Time No Known Allergies Allergy Verified 06/21/17 09:40 Home Medications: Ambulatory Orders Carbidopa/Levodopa *Cr* 25/100 [Sinemet *Cr* 25/100 -] 1 combo PO TID 08/12/18 Fluticasone Prop 0.05% Nasal [Flonase -] 1 - 2 spray NS DAILY 08/12/18 Gabapentin [Neurontin] 100 mg PO TID 08/12/18 Glucosamine/Chondroitn/C/Ignacio [Glucosamine-Chondr Complex Tab] 1 each PO DAILY 08/12/18 Mirtazapine 7.5 mg PO DAILY 08/12/18 Prednisone 10 mg PO DAILY 08/12/18 Sennosides [Senna] 8.6 mg PO DAILY 08/12/18 Atorvastatin Ca [Lipitor] 40 mg PO HS #15 tablet 08/14/18 Carvedilol [Coreg -] 6.25 mg PO BID #30 tablet 08/14/18 Furosemide Injection [Lasix Injection -] 40 mg IVPUSH DAILY #15 vial 08/14/18 Pramipexole Dihydrochloride [Mirapex -] 0.25 mg PO TID #45 tablet 08/14/18 Valsartan [Diovan] 80 mg PO DAILY #15 tablet 08/14/18 Anemia: No Asthma: No Cancer: Yes (DX WITH PROSTAE CA,STAGE 4) Cardiac Disorders: Yes (ENLARGED AORTIC ANERYSM) CVA: No COPD: No CHF: Yes DVT: No Dementia: No Diabetes: No GI Disorders: No Disorders: No HTN: Yes Hypercholesterolemia: Yes Liver Disease: No Seizures: No Thyroid Disease: No - Surgical History Abdominal Surgery: Yes (hernia) - Immunization History Immunization Up to Date: Yes - Psycho Social/Smoking Cessation Hx Smoking History: Former smoker Have you smoked in the past 12 months: No If you are a former smoker, when did you quit?: 25 yrs ago Information on smoking cessation initiated: No Hx Alcohol Use: No Drug/Substance Use Hx: No Substance Use Type: None Hx Substance Use Treatment: No Review of Systems - Review of Systems Constitutional: No: Chills, Fever, Weakness HEENTM: No: Symptoms Reported Respiratory: Yes: Orthopnea, Shortness of Breath, SOB with Exertion, SOB at Rest. No: Cough, Productive cough Cardiac (ROS): Yes: Edema. No: Chest Pain, Lightheadedness, Palpitations, Syncope, Chest Tightness ABD/GI: No: Diarrhea, Nausea, Vomiting, Abdominal cramping Musculoskeletal: No: Back Pain Integumentary: No: Symptoms Reported Neurological: No: Symptoms reported *Physical Exam - Vital Signs Last Vital Signs Temp Pulse Resp BP Pulse Ox 97.1 F L 65 24 H 175/90 H 97 04/22/19 17:14 04/22/19 17:14 04/22/19 17:14 04/22/19 17:14 04/22/19 17:14 - Physical Exam General Appearance: Yes: Nourished, Appropriately Dressed, Moderate Distress HEENT: positive: EOMI, RUTH, Normal ENT Inspection Neck: positive: Trachea midline, Normal Thyroid. negative: Tender, Stridor Respiratory/Chest: positive: Labored Respiration, Rapid RR, Wheezing (diffuse wheezing bilaterally). negative: Accessory Muscle Use, Crackles, Rhonchi, Stridor Cardiovascular: positive: Regular Rhythm, Regular Rate, S1, S2, JVD. negative: Edema, Murmur Vascular Pulses: Dorsalis-Pedis (R): 2+, Doralis-Pedis (L): 2+ Gastrointestinal/Abdominal: positive: Normal Bowel Sounds, Soft. negative: Tender Extremity: positive: Normal Capillary Refill, Pedal Edema (up to mid calf bilaterally). negative: Cyanosis, Calf Tenderness, Erythema Integumentary: positive: Normal Color, Dry, Warm Neurologic: positive: checkout operator II-XII NML intact, Fully Oriented, Alert, Normal Mood/ Affect, Normal Response, Motor Strength 07/13 ED Treatment Course - LABORATORY CBC & Chemistry Diagram: 04/22/19 18:15 04/22/19 18:15 Medical Decision Making - Medical Decision Making 04/22/19 18:14 83y M with PMH of CHF, cardiomyopathy, htn, thoracic aneurysm presenting to ED with sob. vitals; tachypnea, hypertensive pt tachypneic with retractions. diffuse wheezing on exam. no pulmonary history. likely cardiac. seen with Dr. Matias. -cardiac labs, cxr, ekg, abg -bipap, breathing treatments. -lasix, nitropaste bedside u/s showing poor contractility and bilateral pleural effusions. cxr: cardiomegaly, vascular congestion, blunding of costophrenic angles, cephalization. High suspicion for CHF given history. low suspicion for acs at this time. low suspicion for pe, ruptured aneurysm, pna, ptx, dissection. will obtain CTA to check aneurysm size (4.5cm 08/2018) ekg: sinues with 1st degree block and occasional pvcs. rate of 70bpm, pr 270. normal qrs and qtc. no juju or depressions. normal axis. flattened t wave in limb leads. good r wave progression. deep s waves in anterior leads. abg: no retention. cbc at baseline. neg trop, bnp 14k. will admit. seen by Dr. Roth (cardiology) Discharge - Discharge Information Problems reviewed: Yes Clinical Impression/Diagnosis: SOB (shortness of breath) CHF (congestive heart failure) Qualifiers: Heart failure type: combined systolic and diastolic Heart failure chronicity: acute on chronic Qualified Code(s): I50.43 - Acute on chronic combined systolic (congestive) and diastolic (congestive) heart failure - Admission Yes - Follow up/Referral Referrals: Ry Celestin [Primary Care Provider] - - Patient Discharge Instructions - Post Discharge Activity
[2019-04-22 17:58] LABS: ARTERIAL BLD GAS O2 SATURATION 99.1 % (95-98); ARTERIAL BLOOD GAS BASE EXCESS 2.9 meq/l (-2-2); ARTERIAL BLOOD GAS PCO2 41.3 mmHg (35-45); ARTERIAL BLOOD GAS PO2 142 mmHg (80-100); ARTERIAL BLOOD GAS pH 7.43 (7.35-7.45); CARBOXYHEMOGLOBIN 1.5 % (0-2)
[2019-04-22 18:01] LABS: ALLENS TEST POSITIVE
[2019-04-22] MEDS ORDERED: FUROSEMIDE 40 MG/4 ML INJECTABLE VIAL ONE (18:01)
[2019-04-22] MEDS ORDERED: FUROSEMIDE 40 MG/4 ML INJECTABLE VIAL IVPUSH ONE (18:04)
--- NOTE | 2019-04-22 18:14 | PDOC ---
Documentation entered by Nitesh Smyth SCRIBE, acting as scribe for Ruby Smalls DO. Ruby Smalls DO: This documentation has been prepared by the iLbra angelo Xhesika, SCRIBE, under my direction and personally reviewed by me in its entirety. I confirm that the documentation accurately reflects all work, treatment, procedures, and medical decision making performed by me. Attending Attestation - Resident Resident Name: IlsaJessica - ED Attending Attestation I have performed the following: I have examined & evaluated the patient, The case was reviewed & discussed with the resident, I agree w/resident's findings & plan, Exceptions are as noted - HPI HPI: 04/22/19 17:58 The patient is a 83 year old male with a significant past medical history of HTN , Parkinsons, Polymyalgia rheumatica, prostate cancer, Piriformis syndrome, shingles, HLD, lumbar degenerative disc disease, blt hydronephrosis presenting with 3 weeks of worsening SOB. Son at bedside states pt saw his PMD 2 days ago, and x-ray showed "some emphysema. pt also saw his quill collector yesterday and was given an albuterol inhaler which he used once today. Pt states he feels SOB while at rest, and has had a few days where he has woken up in the middle of the night for what he thinks is acid reflux. Son states the patient has had a 10 pound weight gain in the past couple of months. The patient denies chest pain , headache and dizziness. Denies fever, chills, cough, nausea, vomiting, diarrhea and constipation. Allergies: NKDA PCP: Dr. Celestin - Physicial Exam PE: 04/22/19 17:59 GENERAL: Awake, alert, and fully oriented, in no acute distress HEAD: No signs of trauma NECK: Normal ROM, supple, no lymphadenopathy, JVD, or masses LUNGS: +lower base crackles. No wheezes. HEART: Regular rate and rhythm, normal S1 and S2, no murmurs, rubs or gallops ABDOMEN: Soft, nontender, normoactive bowel sounds. No guarding, no rebound. No masses EXTREMITIES: +BLE 2+ pitting edema. Normal range of motion. No clubbing or cyanosis. No cords, erythema, or tenderness NEUROLOGICAL: Cranial nerves II through XII grossly intact. SKIN: Warm, Dry, normal turgor, no rashes or lesions noted. - Medical Decision Making 04/22/19 18:10 a/p: 83yo male with sob x 3 weeks -seen by PMD and pulm and told "mild emphysematous disease" and started on albuterol -pt with 10lb wt gain -pt with orthopnea, pnd -LE swelling -pt denies cough, no cp -c/o sob and [place] -presents with his son, place don bipap upon arrival for wob -bp elevated to 189/98 -concern for heart failure more than emphysema - no prior evidence of emphysema on imaging -bedside ultrasound shows diffuse b lines, b/l pleural effusion and decreased EF -will start nitropaste, lasix iv, pt has been seen by Dr. Vicente Roth in the past , case discussed with Dr Roth who will see patient tonight -pt will need admission -pmd at [facility] -son at the bedside updated and agrees with the plan -pt does say episodes of "heart burn" over the last few weeks, denies acute cp, hx of ascending aortic aneuysm imaged august 2018 04/22/19 19:20 trop 0.05 bnp elevated pt with chf on cxr pt improved with bipap pt has been seen by Dr. Roth from [facility] sent to [facility] for admission 04/22/19 20:00 resident discussed the case with [facility] who accepts pt to service Heart Score/ECG Review - ECG Intrepretation Comment:: 04/22/19 18:13 sinus at 70, 1st degree av block, nl axis, q waves septally which are age indeterminate, mild st depression, abnl ekg
--- NOTE | 2019-04-22 18:20 | CON.CARD ---
Consult Consult Specialty:: Cardiology Referred by:: Emergency Medicine Reason for Consultation:: SAENZ, orthopnea, PND - History of Present Illness Chief Complaint: SAENZ, orthopnea, PND History of Present Illness: Patient is an 83 year old man with PMH of Parkinsons disease, HTN cardiomyopathy with h/o failure, Polymyalgia rheumatica, right drop foot, prostate cancer, Piriformis syndrome right, shingles, HLD, lumbar degenerative disc disease, bilateral hydronephrosis presented with 3 weeks of worsening SOB. Son at bedside states pt saw his PMD 2 days ago, and x-ray showed "some emphysema. pt also saw his hydrogeology professor yesterday and was given an albuterol inhaler which he used once today. Pt states he feels SOB while at rest, and has had a few days where he has woken up in the middle of the night for what he thinks is acid reflux. Son states the patient has had a 10 pound weight gain in the past couple of months. The patient denies chest pain, palpitation, near or true syncope, NSAID use or salt intake, he is now in acute hypoxic respiratory failure on bipap, given diuresis, BP elevated as he did not take daily meds. - History Source History Provided By: Patient Limitations to Obtaining History: No Limitations - Past Medical History Cardio/Vascular: Yes: HTN - Alcohol/Substance Use Hx Alcohol Use: No - Smoking History Smoking history: Former smoker Have you smoked in the past 12 months: No If you are a former smoker, when did you quit?: 25 yrs ago - Social History ADL: Independent Occupation: Retired general maintenance helper Home Medications - Allergies Allergies/Adverse Reactions: Allergies Allergy/AdvReac Type Severity Reaction Status Date / Time No Known Allergies Allergy Verified 06/21/17 09:40 - Home Medications Home Medications: Ambulatory Orders Carbidopa/Levodopa *Cr* 25/100 [Sinemet *Cr* 25/100 -] 1 combo PO TID 08/12/18 Fluticasone Prop 0.05% Nasal [Flonase -] 1 - 2 spray NS DAILY 08/12/18 Gabapentin [Neurontin] 100 mg PO TID 08/12/18 Glucosamine/Chondroitn/C/Ignacio [Glucosamine-Chondr Complex Tab] 1 each PO DAILY 08/12/18 Mirtazapine 7.5 mg PO DAILY 06/04/19 Prednisone 10 mg PO DAILY 08/12/18 Sennosides [Senna] 8.6 mg PO DAILY 08/12/18 Atorvastatin Ca [Lipitor] 40 mg PO HS #15 tablet 08/14/18 Carvedilol [Coreg -] 6.25 mg PO BID #30 tablet 08/14/18 Furosemide Injection [Lasix Injection -] 40 mg IVPUSH DAILY #15 vial 08/14/18 Pramipexole Dihydrochloride [Mirapex -] 0.25 mg PO TID #45 tablet 08/14/18 Valsartan [Diovan] 80 mg PO DAILY #15 tablet 08/14/18 Review of Systems - Review of Systems Cardiovascular: reports: Shortness of Breath Respiratory: reports: Exercise Intolerance, Orthopnea, PND, SOB, SOB on Exertion Vital Signs: Vital Signs Temperature 97.1 F L 04/22/19 17:14 Pulse Rate 65 04/22/19 17:14 Respiratory Rate 24 H 04/22/19 17:14 Blood Pressure 175/90 H 04/22/19 17:14 O2 Sat by Pulse Oximetry (%) 99 04/22/19 17:32 Constitutional: Yes: No Distress, Calm Neck: Yes: Supple Respiratory: Yes: Regular, Diminished, On BiPap, SOB, SOB on Exertion Gastrointestinal: Yes: Soft, Hypoactive Bowel Sounds Cardiovascular: Yes: Regular Rate and Rhythm JVD: No Carotid Bruit: No Heart Sounds: Yes: S1, S2 Murmur: Yes: Systolic Murmur, Grade 1 Edema: Yes Edema: LLE: Trace, RLE: Trace - Other Data NSR @ 70 1st deg AVB PVC, lateral ST-T changes Echo: Report Reviewed Ejection Fraction %: LVEF > or = 40 % Imaging - Results Chest X-ray: Report Reviewed (Congestion) EKG: Report Reviewed Problem List - Problems (1) Hyperlipidemia Code(s): E78.5 - HYPERLIPIDEMIA, UNSPECIFIED Qualifiers: Hyperlipidemia type: pure hypercholesterolemia Qualified Code(s): E78.00 - Pure hypercholesterolemia, unspecified; E78.0 - Pure hypercholesterolemia (2) Hypertensive cardiomyopathy Code(s): I11.9 - HYPERTENSIVE HEART DISEASE WITHOUT HEART FAILURE; I43 - CARDIOMYOPATHY IN DISEASES CLASSIFIED ELSEWHERE Qualifiers: Heart failure presence: with heart failure Qualified Code(s): I11.0 - Hypertensive heart disease with heart failure; I43 - Cardiomyopathy in diseases classified elsewhere (3) Parkinson disease Code(s): G20 - PARKINSON'S DISEASE (4) Polymyalgia rheumatica Code(s): M35.3 - POLYMYALGIA RHEUMATICA (5) CHF exacerbation Code(s): I50.9 - HEART FAILURE, UNSPECIFIED Qualifiers: Heart failure type: combined systolic and diastolic Qualified Code(s): I50.43 - Acute on chronic combined systolic (congestive) and diastolic ( congestive) heart failure Assessment/Plan 08/13/2018 Echo: Normal LV size with mild-mod decreased LV fxn, mild ARABELLA, mod AR , mild ao root dilatation 08/12/[address]: CHF, small pericardial effusion, 4.5 cm ascending aorta aneurysm 06/21/2017 Echo Mildly decreased LV fxn with moderate lateral wall HK, mild MR, TR, AR 1. Acute on chronic systolic/diastolic heart failure 2. Hypertensive cardiomyopathy not at goal control 3. CAD, angina pectoris 4. Hyperlipidemia 5. Parkinson disease 6. Polymyalgia rheumatica 7. Prostate cancer 8. Anemia 9. 4.5 cm ascending aortic aneurysm P:1. IV diuresis with monitor diuretic response, renal fxn and electrolytes, replete K, Mg as needed 2. Resume carvedilol 6.25 bid, Diovan 80 qd with uptitration as tolerated, continue pravachol 40 qhs 3. Trend trops to document peak 4. Echo to assess ventricular and valve fxn 5. Wean FIO2 to maintain saO2>90% 6. Thank you for consultative opportunity
[2019-04-22 18:41] LABS: BASO % 0.9 % (0-2.0); EOS % 1.9 % (0-4.5); HEMATOCRIT 32.1 % (35.4-49); HEMOGLOBIN 10.8 GM/dL (11.7-16.9); LYMPH % 5.1 % (8-40); MCH 33.2 pg (25.7-33.7); MCHC 33.7 g/dl (32.0-35.9); MEAN CELL VOLUME 98.3 fl (80-96); MEAN PLT VOLUME 9.1 fl (7.5-11.1); MONO % 7.5 % (3.8-10.2); NEUT % 84.6 % (42.8-82.8); PLATELET COUNT 202 K/MM3 (134-434); RBC 3.26 M/mm3 (4.00-5.60); RDW 15.3 % (11.9-15.9); WHITE BLOOD COUNT 8.8 K/mm3 (4.0-10.0)
[2019-04-22 19:09] LABS: BILIRUBIN,TOTAL 0.8 mg/dL (0.2-1); BLOOD UREA NITROGEN 25.6 mg/dL (7-18); CALCIUM 8.4 mg/dL (8.5-10.1); CREATININE 0.9 mg/dL (0.55-1.3); N-TERMINAL BNP 14161.2 pg/ml (5-450); POTASSIUM 3.8 mmol/L (3.5-5.1); TOT PROT 6.2 g/dl (6.4-8.2)
[2019-04-22] MEDS ORDERED: ALBUTEROL SO4 2.5/IPRATROPIUM 0.5 INH SOL 3 ML VIAL.NEB. NEB SCH (20:00)
[2019-04-22] MEDS ORDERED: ALBUTEROL SO4 0.083% IH SOL 2.5 MG/3 ML VIAL.NEB. NEB PRN (20:25)
[2019-04-22 20:31] LABS: INR 1.01 (0.83-1.09); PROTHROMBIN TIME (PATIENT) 11.9 SEC (9.7-13.0)
[2019-04-22 20:34] LABS: ACTIVATED PTT 29.1 SECONDS (25.2-36.5)
[2019-04-22] MEDS: HEPARIN NA (PORCINE) 5,000 UNITS/ML 1ML VIAL SQ SCH ×2 (20:42→22:19)
--- NOTE | 2019-04-22 21:09 | HP ---
<Burak Monsalve - Last Filed: 04/22/19 21:51> CHIEF COMPLAINT: Shortness of breath PCP: Dr. Celestin HISTORY OF PRESENT ILLNESS: 83M PMH prostate cancer s/p XRT, CHF (diastolic & systolic), thoracic aortic aneurysm, cardiomyopathy, HTN, HLD, Parkinson's Disease, Polymyalgia rheumatica , who presents today with 3 weeks of progressively worsening shortness of breath. His shortness of breath is not related to exertion or position, and he describes night time awakenings due to his shortness of breath. He denies any chest pain, denies cough,fever and chills. However he has had numerous sick contacts at home throughout the past few weeks. He saw his PMD earlier this week , they had outpatient chest x-ray completed and as per the son, the imaging showed emphysema. Patient was referred to a pulmonolgist who performed PFT that resulted WNL, and prescribed albuterol inhaler and symbicort. Patient has taken both inhalers before coming to the hospital, but only felt symptomatic relief from albuterol inhaler. Patient has been non-adherent to antihypertensive medication, and is not on a salt-restricted diet. ER course was notable for: (1) Chest X-Ray was completed which showed congestive changes, pleural effusion in the left lung base. (2) Initial labs [place]rop[place] 0.05[place] [address].2, (3) Patient was placed on BiPAP and given lasix. Has output of 600 ml since time of medication. Recent Travel: None PAST MEDICAL HISTORY: PMH prostate cancer s/p XRT, CHF (diastolic & systolic), thoracic aortic aneurysm, cardiomyopathy, HTN, HLD, Parkinson's Disease, Polymyalgia rheumatica PAST SURGICAL HISTORY: Sacral plasty FAMILY MEDICAL HISTORY: Denies Social History: Smokin pack year history, quit smoking 25 years ago. Extensive exposure to 2nd hand smoke Alcohol: Denies Drugs: Denies Lives at home with , is able to perform ADLs unassisted, ambulates with cane. Allergies No Known Allergies Allergy (Verified 06/21/17 09:40) HOME MEDICATIONS: Home Medications Medication Instructions Recorded Carbidopa/Levodopa *Cr* 25/100 1 combo PO QID 08/12/18 [Sinemet *Cr* 25/100 -] Fluticasone Prop 0.05% Nasal 1 - 2 spray NS DAILY 08/12/18 [Flonase -] Gabapentin [Neurontin] 100 mg PO TID 08/12/18 Glucosamine/Chondroitn/C/Ignacio 1 each PO DAILY 08/12/18 [Glucosamine-Chondr Complex Tab] Mirtazapine 7.5 mg PO DAILY 08/12/18 Prednisone 5 mg PO BID 08/12/18 Sennosides [Senna] 8.6 mg PO DAILY 08/12/18 Atorvastatin Ca [Lipitor] 40 mg PO HS #15 tablet 08/14/18 Carvedilol [Coreg -] 6.25 mg PO BID #30 tablet 08/14/18 Furosemide Injection [Lasix 40 mg IVPUSH DAILY #15 vial 08/14/18 Injection -] Pramipexole Dihydrochloride 0.25 mg PO TID #45 tablet 08/14/18 [Mirapex -] Valsartan [Diovan] 80 mg PO DAILY #15 tablet 08/14/18 REVIEW OF SYSTEMS CONSTITUTIONAL: Present: generalized weakness Absent: fever, chills, diaphoresis, , malaise, loss of appetite, weight change HEENT: Absent: rhinorrhea, nasal congestion, throat pain, throat swelling, difficulty swallowing, mouth swelling, ear pain, eye pain, visual changes CARDIOVASCULAR: Present: chronic peripheral edema in feet Absent: chest pain, syncope, palpitations, irregular heart rate, lightheadedness , RESPIRATORY: Present: SOB, dyspnea, orthopnea Absent: cough,wheezing, stridor, hemoptysis GASTROINTESTINAL: Absent: abdominal pain, abdominal distension, nausea, vomiting, diarrhea, constipation, melena, hematochezia GENITOURINARY: Absent: dysuria, frequency, urgency, hesitancy, hematuria, flank pain, genital pain MUSCULOSKELETAL: Absent: myalgia, arthralgia, joint swelling, back pain, neck pain SKIN: Absent: rash, itching, pallor HEMATOLOGIC/IMMUNOLOGIC: Absent: easy bleeding, easy bruising, lymphadenopathy, frequent infections ENDOCRINE: Absent: unexplained weight gain, unexplained weight loss, heat intolerance, cold intolerance PHYSICAL EXAMINATION Vital Signs - 24 hr 04/22/19 04/22/19 04/22/19 17:14 17:31 17:32 Temperature 97.1 F L Pulse Rate 65 Pulse Rate [ Left] Respiratory 24 H Rate Blood Pressure 175/90 H Blood Pressure [Left Arm] O2 Sat by Pulse 97 100 99 Oximetry (%) 04/22/19 04/22/19 04/22/19 20:47 20:51 20:52 Temperature Pulse Rate Pulse Rate [ 66 Left] Respiratory 17 Rate Blood Pressure Blood Pressure 188/78 H [Left Arm] O2 Sat by Pulse 98 98 98 Oximetry (%) GENERAL: Awake, alert, and fully oriented HEAD: Normal with no signs of trauma EARS, NOSE, THROAT:BiPAP in place NECK: Normal range of motion, no visible JVD LUNGS: Faint crackles at lung bases. HEART: Regular rate and rhythm, S1, S2, 2/6 systolic murmur ABDOMEN: Soft, nontender, not distended, normoactive bowel sounds, no guarding, no rebound, no masses. MUSCULOSKELETAL: Normal range of motion at all joints. UPPER EXTREMITIES: 2+ pulses, warm, well-perfused. No cyanosis. No clubbing. No peripheral edema. LOWER EXTREMITIES: 2+ pulses, 1+ pedal edema. NEUROLOGICAL: Cranial nerves II-XII intact. Normal speech. Normal gait. PSYCHIATRIC: Cooperative. Good eye contact. Appropriate mood and affect. Laboratory Results - last 24 hr 04/22/19 04/22/19 04/22/19 17:32 18:15 18:15 WBC 8.8 RBC 3.26 L Hgb 10.8 L Hct 32.1 L MCV 98.3 H MCH 33.2 MCHC 33.7 RDW 15.3 D Plt Count 202 D MPV 9.1 Absolute Neuts (auto) 7.4 Neutrophils % 84.6 H Lymphocytes % 5.1 L D Monocytes % 7.5 Eosinophils % 1.9 Basophils % 0.9 Nucleated RBC % 0 PT with INR 11.90 INR 1.01 PTT (Actin FS) 29.1 Anticoagulation Therapy No Result Required. Puncture Site Left radial ABG pH 7.43 ABG pCO2 at Pt Temp 41.3 ABG pO2 at Pt Temp 142 H ABG HCO3 27.0 ABG O2 Sat (Measured) 99.1 H ABG O2 Content 15.1 ABG Base Excess 2.9 H Yoel Test Positive Carboxyhemoglobin 1.5 Methemoglobin < 1.0 O2 Delivery Device No Result Required. Oxygen Flow Rate 6 Vent Mode No Result Required. Vent Rate No Result Required. Mechanical Rate No Result Required. Pressure Support Vent No Result Required. Sodium Potassium Chloride Carbon Dioxide Anion Gap BUN Creatinine Est GFR (CKD-EPI)AfAm Est GFR (CKD-EPI)NonAf Random Glucose Calcium Magnesium Total Bilirubin AST ALT Alkaline Phosphatase Creatine Kinase Troponin I B-Natriuretic Peptide Total Protein Albumin 04/22/19 18:15 WBC RBC Hgb Hct MCV MCH MCHC RDW Plt Count MPV Absolute Neuts (auto) Neutrophils % Lymphocytes % Monocytes % Eosinophils % Basophils % Nucleated RBC % PT with INR INR PTT (Actin FS) Anticoagulation Therapy Puncture Site ABG pH ABG pCO2 at Pt Temp ABG pO2 at Pt Temp ABG HCO3 ABG O2 Sat (Measured) ABG O2 Content ABG Base Excess Yoel Test Carboxyhemoglobin Methemoglobin O2 Delivery Device Oxygen Flow Rate Vent Mode Vent Rate Mechanical Rate Pressure Support Vent Sodium 144 Potassium 3.8 Chloride 109 H Carbon Dioxide 31 Anion Gap 4 L BUN 25.6 H Creatinine 0.9 Est GFR (CKD-EPI)AfAm 90.58 Est GFR (CKD-EPI)NonAf 78.15 Random Glucose 94 Calcium 8.4 L Magnesium 2.0 Total Bilirubin 0.8 AST 15 ALT 8 L Alkaline Phosphatase 62 Creatine Kinase 72 Troponin I 0.05 B-Natriuretic Peptide 17778.2 H Total Protein 6.2 L Albumin 3.0 L ASSESSMENT/PLAN: 83M PMH prostate cancer s/p XRT, CHF (diastolic & systolic), thoracic aortic aneurysm, cardiomyopathy, HTN, HLD, Parkinson's Disease, Polymyalgia rheumatica , who presents today with 3 weeks of progressively worsening shortness of breath likely secondary to Acute exacerbation of CHF. 1) Acute Exacerbation of CHF -Likely 2/2 to nonadherence to medication and sodium restricted diet -Troponin elevated at 0.05, BNP 72987.2 -Chest X-Ray shows congestive changes, similar to previous admission in August 2018 -EKG shows 1st degree AV block, no ST changes. -Lasix 40 mg given, patient is responsive- 600 ml output bedside -Trending Troponins, F/U -Echo in August shows LA, RA LV function moderately reduced -Continous cardiac monitoring -Daily weights, I&O -Lasix 40 IV BID -Carvedilol 6.25 mg PO BID -Valsartan 80 mg PO Daily -Repeat Echo, F/U results -Chest CT ordered, F/U results -Cardiology consulted, appreciate recs -Will require cardiology follow up as outpatent as he does not follow with outpatient cardiology. 2) HTN -MAP of 110, SBP of 177 on admission -Hx of HTN, has discontinued valsartan -Continue Valsartan 80 mg Daily, uptitrate as needed 3)Hx of Parkinsons -Sinamet QID -Mirapex TID -Remeron Daily 4) Hx Polymalgyia rheumatica -Prednisone 5mg BID 5) Hx of HLD -Patient has discontinued atorvastatin at home - F/U lipid panel - Atorvastatin 40 mg HS F: Fluid restriction, oral hydration only E: Monitor CMP N: Sodium restricted diet DVT: Heparin SQ TID Dispo: Admit to telemetry ATTENDING PHYSICIAN STATEMENT I saw and evaluated the patient. I reviewed the resident's note and discussed the case with the resident. I agree with the resident's findings and plan as documented. SUBJECTIVE: OBJECTIVE: ASSESSMENT AND PLAN: <Williams Ocampo - Last Filed: 04/22/19 22:53> CHIEF COMPLAINT: PCP: HISTORY OF PRESENT ILLNESS: ER course was notable for: (1) (2) (3) Recent Travel: PAST MEDICAL HISTORY: PAST SURGICAL HISTORY: Social History: Smoking: Alcohol: Drugs: Allergies No Known Allergies Allergy (Verified 06/21/17 09:40) HOME MEDICATIONS: Home Medications Medication Instructions Recorded Carbidopa/Levodopa *Cr* 25/100 1 combo PO QID 08/12/18 [Sinemet *Cr* 25/100 -] Fluticasone Prop 0.05% Nasal 1 - 2 spray NS DAILY 08/12/18 [Flonase -] Gabapentin [Neurontin] 100 mg PO TID 08/12/18 Glucosamine/Chondroitn/C/Ignacio 1 each PO DAILY 08/12/18 [Glucosamine-Chondr Complex Tab] Mirtazapine 7.5 mg PO DAILY 08/12/18 Prednisone 5 mg PO BID 08/12/18 Sennosides [Senna] 8.6 mg PO DAILY 08/12/18 Atorvastatin Ca [Lipitor] 40 mg PO HS #15 tablet 08/14/18 Carvedilol [Coreg -] 6.25 mg PO BID #30 tablet 08/14/18 Furosemide Injection [Lasix 40 mg IVPUSH DAILY #15 vial 08/14/18 Injection -] Pramipexole Dihydrochloride 0.25 mg PO TID #45 tablet 08/14/18 [Mirapex -] Valsartan [Diovan] 80 mg PO DAILY #15 tablet 08/14/18 REVIEW OF SYSTEMS CONSTITUTIONAL: Absent: fever, chills, diaphoresis, generalized weakness, malaise, loss of appetite, weight change HEENT: Absent: rhinorrhea, nasal congestion, throat pain, throat swelling, difficulty swallowing, mouth swelling, ear pain, eye pain, visual changes CARDIOVASCULAR: Absent: chest pain, syncope, palpitations, irregular heart rate, lightheadedness , peripheral edema RESPIRATORY: Absent: cough, shortness of breath, dyspnea with exertion, orthopnea, wheezing, stridor, hemoptysis GASTROINTESTINAL: Absent: abdominal pain, abdominal distension, nausea, vomiting, diarrhea, constipation, melena, hematochezia GENITOURINARY: Absent: dysuria, frequency, urgency, hesitancy, hematuria, flank pain, genital pain MUSCULOSKELETAL: Absent: myalgia, arthralgia, joint swelling, back pain, neck pain SKIN: Absent: rash, itching, pallor HEMATOLOGIC/IMMUNOLOGIC: Absent: easy bleeding, easy bruising, lymphadenopathy, frequent infections ENDOCRINE: Absent: unexplained weight gain, unexplained weight loss, heat intolerance, cold intolerance NEUROLOGIC: Absent: headache, focal weakness or paresthesias, dizziness, unsteady gait, seizure, mental status changes, bladder or bowel incontinence PSYCHIATRIC: Absent: anxiety, depression, suicidal or homicidal ideation, hallucinations. PHYSICAL EXAMINATION Vital Signs - 24 hr 04/22/19 04/22/19 04/22/19 17:14 17:31 17:32 Temperature 97.1 F L Pulse Rate 65 Pulse Rate [ Left] Respiratory 24 H Rate Blood Pressure 175/90 H Blood Pressure [Left Arm] O2 Sat by Pulse 97 100 99 Oximetry (%) 04/22/19 04/22/19 04/22/19 20:47 20:51 20:52 Temperature Pulse Rate Pulse Rate [ 66 Left] Respiratory 17 Rate Blood Pressure Blood Pressure 188/78 H [Left Arm] O2 Sat by Pulse 98 98 98 Oximetry (%) 04/22/19 22:10 Temperature Pulse Rate Pulse Rate [ Left] Respiratory Rate Blood Pressure Blood Pressure [Left Arm] O2 Sat by Pulse 98 Oximetry (%) GENERAL: Awake, alert, and fully oriented, in no acute distress. HEAD: Normal with no signs of trauma. EYES: Pupils equal, round and reactive to light, extraocular movements intact, sclera anicteric, conjunctiva clear. No lid lag. EARS, NOSE, THROAT: Ears normal, nares patent, oropharynx clear without exudates. Moist mucous membranes. NECK: Normal range of motion, supple without lymphadenopathy, JVD, or masses. LUNGS: Breath sounds equal, clear to auscultation bilaterally. No wheezes, and no crackles. No accessory muscle use. HEART: Regular rate and rhythm, normal S1 and S2 without murmur, rub or gallop. ABDOMEN: Soft, nontender, not distended, normoactive bowel sounds, no guarding, no rebound, no masses. No hepatomegaly or splenomegaly. MUSCULOSKELETAL: Normal range of motion at all joints. No bony deformities or tenderness. No CVA tenderness. UPPER EXTREMITIES: 2+ pulses, warm, well-perfused. No cyanosis. No clubbing. No peripheral edema. LOWER EXTREMITIES: 2+ pulses, warm, well-perfused. No calf tenderness. No peripheral edema. NEUROLOGICAL: Cranial nerves II-XII intact. Normal speech. Normal gait. PSYCHIATRIC: Cooperative. Good eye contact. Appropriate mood and affect. SKIN: Warm, dry, normal turgor, no rashes or lesions noted, normal capillary refill. Laboratory Results - last 24 hr 04/22/19 04/22/19 04/22/19 17:32 18:15 18:15 WBC 8.8 RBC 3.26 L Hgb 10.8 L Hct 32.1 L MCV 98.3 H MCH 33.2 MCHC 33.7 RDW 15.3 D Plt Count 202 D MPV 9.1 Absolute Neuts (auto) 7.4 Neutrophils % 84.6 H Lymphocytes % 5.1 L D Monocytes % 7.5 Eosinophils % 1.9 Basophils % 0.9 Nucleated RBC % 0 PT with INR 11.90 INR 1.01 PTT (Actin FS) 29.1 Anticoagulation Therapy No Result Required. Puncture Site Left radial ABG pH 7.43 ABG pCO2 at Pt Temp 41.3 ABG pO2 at Pt Temp 142 H ABG HCO3 27.0 ABG O2 Sat (Measured) 99.1 H ABG O2 Content 15.1 ABG Base Excess 2.9 H Yoel Test Positive Carboxyhemoglobin 1.5 Methemoglobin < 1.0 O2 Delivery Device No Result Required. Oxygen Flow Rate 6 Vent Mode No Result Required. Vent Rate No Result Required. Mechanical Rate No Result Required. Pressure Support Vent No Result Required. Sodium Potassium Chloride Carbon Dioxide Anion Gap BUN Creatinine Est GFR (CKD-EPI)AfAm Est GFR (CKD-EPI)NonAf Random Glucose Calcium Magnesium Total Bilirubin AST ALT Alkaline Phosphatase Creatine Kinase Troponin I B-Natriuretic Peptide Total Protein Albumin 04/22/19 18:15 WBC RBC Hgb Hct MCV MCH MCHC RDW Plt Count MPV Absolute Neuts (auto) Neutrophils % Lymphocytes % Monocytes % Eosinophils % Basophils % Nucleated RBC % PT with INR INR PTT (Actin FS) Anticoagulation Therapy Puncture Site ABG pH ABG pCO2 at Pt Temp ABG pO2 at Pt Temp ABG HCO3 ABG O2 Sat (Measured) ABG O2 Content ABG Base Excess Yoel Test Carboxyhemoglobin Methemoglobin O2 Delivery Device Oxygen Flow Rate Vent Mode Vent Rate Mechanical Rate Pressure Support Vent Sodium 144 Potassium 3.8 Chloride 109 H Carbon Dioxide 31 Anion Gap 4 L BUN 25.6 H Creatinine 0.9 Est GFR (CKD-EPI)AfAm 90.58 Est GFR (CKD-EPI)NonAf 78.15 Random Glucose 94 Calcium 8.4 L Magnesium 2.0 Total Bilirubin 0.8 AST 15 ALT 8 L Alkaline Phosphatase 62 Creatine Kinase 72 Troponin I 0.05 B-Natriuretic Peptide 58795.2 H Total Protein 6.2 L Albumin 3.0 L ASSESSMENT/PLAN: Visit type - Emergency Visit Emergency Visit: Yes ED Registration Date: 04/22/19 Care time: The patient presented to the Emergency Department on the above date and was hospitalized for further evaluation of their emergent condition. - New Patient This patient is new to me today: Yes Date on this admission: 04/22/19 - Critical Care Critical Care patient: No ATTENDING PHYSICIAN STATEMENT I saw and evaluated the patient with resident staff in conference I reviewed the resident's note and discussed the case with the resident. I agree with the resident's findings and plan as documented. SUBJECTIVE: 83 years with PMH prostate cancer s/p XRT, CHF (diastolic & systolic), thoracic aortic aneurysm, cardiomyopathy, HTN, HLD, Parkinson's Disease, Polymyalgia rheumatica presented to hospital with worsening of SOB for last 3 weeks. SOB is unrelated to position or exertion. He denies chest pain, nausea,vomiting, fever, dizziness, LOC After coming to ED he was found to have elevated BNP 43937.2 and troponins of 0.050 Last Vital Signs Temp Pulse Resp BP Pulse Ox 97.1 F L 66 17 188/78 H 98 04/22/19 17:14 04/22/19 20:47 04/22/19 20:47 04/22/19 20:47 04/22/19 22:10 General : Average built, in mild respiratory distress on BIPAP Neck : No JVD, Thyroid WNL Head - NC, AT Eyes : RUTH, No cinjuctival pallor, EOMI, Heart : RRR, s1s2+grade 1 systolic murmur Resp : Bi basilar rales Ext : b/l 2+pitting ankle edema, peripheral pulses + Neuro : A&o x 3, No focal neurologic deficit ASSESSMENT AND PLAN: Acute exacerbation of CHF ( Combined) Hypertensive cardiomyopathy CAD Hyperlipidemia Parkinson disease Polymyalgia rheumatica Prostate cancer Anemia 4.5 cm ascending aortic aneurysm Admit to tele IV diuretics Cardio consult appreciated. follow recommendations Fluid restrictions Daily weight, Strict intake output Cont Bipap overnight. Wean off to nasal cannula in AM Cardiology follow up ECHO BP control : Aamir Gale Resume rest of home medications DVT ppx Discussed with resident staff.
[2019-04-22] MEDS ORDERED: ATORVASTATIN CA 40 MG TABLET (FP) PO SCH (22:00)
[2019-04-22] MEDS ORDERED: VALSARTAN 80 MG TABLET (UD) ONE (22:07)
[2019-04-22] MEDS ORDERED: ATORVASTATIN CA 40 MG TABLET (FP) ONE (22:07)
[2019-04-22] MEDS ORDERED: SENNOSIDES 8.6MG TABLET (FP) PO ONE (22:07)
[2019-04-22] MEDS ORDERED: CARBIDOPA/LEVODOPA 25/100 TABLET (FP) ONE (22:07)
[2019-04-22] MEDS ORDERED: CARVEDILOL 12.5 MG TABLET (FP) ONE (22:07)
[2019-04-22] MEDS ORDERED: HEPARIN NA (PORCINE) 5,000 UNITS/ML 1ML VIAL ONE (22:08)
[2019-04-22] MEDS ORDERED: MIRTAZAPINE 15 MG TABLET (FP) ONE (22:08)
[2019-04-22] MEDS: SENNOSIDES 8.6MG TABLET (FP) PO SCH (22:16)
[2019-04-22] MEDS: ATORVASTATIN CA 40 MG TABLET (FP) PO SCH (22:17)
[2019-04-22] MEDS: MIRTAZAPINE 15 MG TABLET (FP) PO SCH (22:17)
[2019-04-22] MEDS: VALSARTAN 80 MG TABLET (UD) PO SCH (22:19)
[2019-04-22] MEDS: predniSONE 5 MG TABLET (UD) PO SCH (22:19)
[2019-04-22] MEDS: CARVEDILOL 6.25 MG TABLET (FP) PO SCH (22:19)
[2019-04-22] MEDS: PRAMIPEXOLE DIHYDROCHLORIDE 0.25 MG TABLET PO SCH (22:19)
[2019-04-22] MEDS ORDERED: ACETAMINOPHEN 1000 MG/100 ML VIAL (NON FORMULARY) IVPB ONE (22:38)
[2019-04-22] MEDS ORDERED: ACETAMINOPHEN INJECTION 100 ML IVPB ONE (23:29)
[2019-04-23] MEDS ORDERED: HEPARIN NA (PORCINE) 5,000 UNITS/ML 1ML VIAL ONE (06:57)
[2019-04-23] MEDS ORDERED: FUROSEMIDE 40 MG/4 ML INJECTABLE VIAL ONE (06:57)
[2019-04-23] MEDS: HEPARIN NA (PORCINE) 5,000 UNITS/ML 1ML VIAL SQ SCH ×3 (07:06→21:37)
[2019-04-23] MEDS: PRAMIPEXOLE DIHYDROCHLORIDE 0.25 MG TABLET PO SCH ×3 (07:06→22:31)
[2019-04-23] MEDS: FUROSEMIDE 40 MG/4 ML INJECTABLE VIAL IVPUSH SCH ×2 (07:06→14:26)
[2019-04-23 08:18] LABS: BASO % 1.2 % (0-2.0); EOS % 1.2 % (0-4.5); HEMATOCRIT 33.5 % (35.4-49); HEMOGLOBIN 11.3 GM/dL (11.7-16.9); LYMPH % 3.8 % (8-40); MCH 32.9 pg (25.7-33.7); MCHC 33.8 g/dl (32.0-35.9); MEAN CELL VOLUME 97.3 fl (80-96); MEAN PLT VOLUME 9.4 fl (7.5-11.1); MONO % 5.4 % (3.8-10.2); NEUT % 88.4 % (42.8-82.8); PLATELET COUNT 204 K/MM3 (134-434); RBC 3.44 M/mm3 (4.00-5.60); RDW 15.3 % (11.9-15.9); WHITE BLOOD COUNT 7.2 K/mm3 (4.0-10.0)
[2019-04-23 08:30] LABS: ALBUMIN 3.2 g/dl (3.4-5.0); BILIRUBIN,TOTAL 0.9 mg/dL (0.2-1); BLOOD UREA NITROGEN 25.1 mg/dL (7-18); CALCIUM 8.5 mg/dL (8.5-10.1); CREATININE 1.1 mg/dL (0.55-1.3); POTASSIUM 3.7 mmol/L (3.5-5.1); TOT PROT 6.3 g/dl (6.4-8.2)
--- NOTE | 2019-04-23 09:37 | PN ---
Teaching Attending Note Name of Resident: Crystal Esteves ATTENDING PHYSICIAN STATEMENT I saw and evaluated the patient. I reviewed the resident's note and discussed the case with the resident. I agree with the resident's findings and plan as documented. SUBJECTIVE: Patient is c/o unable to lie down due to having shortness of breath, daughter at bedside. As per daughter, patient was not taking his Furosemide since was going to the bathroom more often and that was annoying him. Has 3 pillow orthopnea. On 2 liter oxygen. OBJECTIVE: Vital Signs Temperature 97.1 F L 04/22/19 17:14 Pulse Rate 66 04/23/19 08:15 Respiratory Rate 20 04/23/19 08:15 Blood Pressure 146/68 04/23/19 08:15 O2 Sat by Pulse Oximetry (%) 100 04/23/19 08:15 GENERAL: The patient is awake, alert, and fully oriented, in no acute distress. On 2L NC HEAD: Normal with no signs of trauma. EYES: PERRL, extraocular movements intact, sclera anicteric, conjunctiva clear. ENT: Ears normal, oropharynx clear without exudates, moist mucous membranes. NECK: Trachea midline, full range of motion, supple. +JVD LUNGS: decreased BS BL, no wheezes, no crackles, no accessory muscle use. HEART: Regular rate and rhythm, S1, S2 +, [place] 2/6 , no rub or gallop. ABDOMEN: Soft, nontender, nondistended, normoactive bowel sounds, no guarding, no rebound, no hepatosplenomegaly, no masses. EXTREMITIES: 2+ pulses, warm, well-perfused, no edema. NEUROLOGICAL: Cranial nerves II through XII grossly intact. Normal speech, gait not observed. PSYCH: Normal mood, normal affect. SKIN: Warm, dry, normal turgor, no rashes or lesions noted CBCD WBC 7.2 K/mm3 (4.0-10.0) 04/23/19 07:10 RBC 3.44 M/mm3 (4.00-5.60) L 04/23/19 07:10 Hgb 11.3 GM/dL (11.7-16.9) L 04/23/19 07:10 Hct 33.5 % (35.4-49) L 04/23/19 07:10 MCV 97.3 fl (80-96) H 04/23/19 07:10 MCHC 33.8 g/dl (32.0-35.9) 04/23/19 07:10 RDW 15.3 % (11.9-15.9) 04/23/19 07:10 Plt Count 204 K/MM3 (134-434) 04/23/19 07:10 MPV 9.4 fl (7.5-11.1) 04/23/19 07:10 CMP Sodium 141 mmol/L (136-145) 04/23/19 07:10 Potassium 3.7 mmol/L (3.5-5.1) 04/23/19 07:10 Chloride 107 mmol/L (98-107) 04/23/19 07:10 Carbon Dioxide 26 mmol/L (21-32) 04/23/19 07:10 Anion Gap 8 MMOL/L (8-16) 04/23/19 07:10 BUN 25.1 mg/dL (7-18) H 04/23/19 07:10 Creatinine 1.1 mg/dL (0.55-1.3) 04/23/19 07:10 Random Glucose 139 mg/dL (74-106) H 04/23/19 07:10 Calcium 8.5 mg/dL (8.5-10.1) 04/23/19 07:10 Total Bilirubin 0.9 mg/dL (0.2-1) 04/23/19 07:10 AST 15 U/L (15-37) 04/23/19 07:10 ALT 12 U/L (13-61) L 04/23/19 07:10 Alkaline Phosphatase 66 U/L (45-117) 04/23/19 07:10 Total Protein 6.3 g/dl (6.4-8.2) L 04/23/19 07:10 Albumin 3.2 g/dl (3.4-5.0) L 04/23/19 07:10 CARDIAC ENZYMES Creatine Kinase 72 U/L (26-308) 04/22/19 18:15 Troponin I 0.05 ng/ml (0.00-0.05) 04/23/19 07:10 Home Medications Medication Instructions Recorded Carbidopa/Levodopa *Cr* 1 combo PO QID 08/12/18 [Sinemet *Cr* 25/100 -] Fluticasone Prop 0.05% Nasal 1 - 2 spray NS DAILY 08/12/18 [Flonase -] Gabapentin [Neurontin] 100 mg PO TID 08/12/18 Glucosamine/Chondroitn/C/Ignacio 1 each PO DAILY 08/12/18 [Glucosamine-Chondr Complex Tab] Mirtazapine 7.5 mg PO DAILY 08/12/18 Prednisone 5 mg PO BID 08/12/18 Sennosides [Senna] 8.6 mg PO DAILY 08/12/18 Atorvastatin Ca [Lipitor] 40 mg PO HS #15 tablet 08/14/18 Carvedilol [Coreg -] 6.25 mg PO BID #30 tablet 08/14/18 Furosemide Injection [Lasix 40 mg IVPUSH DAILY #15 vial 08/14/18 Injection -] Pramipexole Dihydrochloride 0.25 mg PO TID #45 tablet 08/14/18 [Mirapex -] Valsartan [Diovan] 80 mg PO DAILY #15 tablet 08/14/18 Current Medications Generic Name Dose Route Start Last Admin Trade Name Freq PRN Reason Stop Dose Admin Atorvastatin Calcium 40 mg 04/22/19 22:00 04/22/19 22:17 Lipitor - PO 40 mg HS MIGUEL Administration Carbidopa/Levodopa 1 combo 04/22/19 22:00 04/22/19 22:16 Sinemet *Cr* 25/100 - PO 1 combo QID MIGUEL Administration Carvedilol 6.25 mg 04/22/19 22:00 04/22/19 22:19 Coreg - PO 6.25 mg BID MIGUEL Administration Docusate Sodium 100 mg 04/23/19 10:00 Colace - PO DAILY MIGUEL Fluticasone Propionate 2 spray 04/23/19 10:00 Flonase - NS DAILY MIGUEL Furosemide 40 mg 04/23/19 06:00 04/23/19 07:06 Lasix Injection - IVPUSH 40 mg BIDLASIX MIGUEL Administration Heparin Sodium (Porcine) 5,000 unit 04/22/19 22:00 04/23/19 07:06 Heparin - SQ 5,000 unit TID MIGUEL Administration Mirtazapine 7.5 mg 04/22/19 22:00 04/22/19 22:17 Remeron - PO 7.5 mg HS MIGUEL Administration Non-Formulary Medication 1 each 04/23/19 10:00 Glucosamine/Chondroitn/C/Ignacio [Glucosamine-Chondr Complex Tab] PO DAILY MIGUEL Pramipexole Dihydrochloride 0.25 mg 04/22/19 22:00 04/23/19 07:06 Mirapex - PO 0.25 mg TID MIGUEL Administration Prednisone 5 mg 04/22/19 22:00 04/22/19 22:19 Deltasone - PO 5 mg BID MIGUEL Administration Senna 1 tab 04/22/19 22:00 04/22/19 22:16 Senna - PO 1 tab HS MIGUEL Administration Valsartan 80 mg 04/22/19 21:07 04/22/19 22:19 Diovan - PO 80 mg DAILY MIGUEL Administration Laboratory Tests 06/21/17 06/22/17 04/22/19 10:38 06:30 18:15 Iron TIBC Iron Saturation Unsaturated IBC Ferritin Troponin I 0.05 B-Natriuretic Peptide 68459.2 H Triglycerides Cholesterol Total LDL Cholesterol HDL Cholesterol Serum Folate 15 TSH 1.49 D 0.58 D 04/23/19 04/23/19 07:10 07:10 Iron 40 L TIBC 314 Iron Saturation 12 L Unsaturated IBC 274 Ferritin 95.7 Troponin I 0.05 B-Natriuretic Peptide Triglycerides 60 Cholesterol 208 H Total LDL Cholesterol 135 H HDL Cholesterol 59 Serum Folate TSH 04/22/[address]: 4.3 cm ascending aorta aneurysm stable, dilatation of main PA suggests pulm HTN 08/13/2018 Echo: Normal LV size with mild-mod decreased LV fxn, mild ARABELLA, mod AR , mild ao root dilatation 08/12/[address]: CHF, small pericardial effusion, 4.5 cm ascending aorta aneurysm 06/21/2017 Echo Mildly decreased LV fxn with moderate lateral wall HK, mild MR, TR, AR ASSESSMENT AND PLAN: Patient ia a 83yo male with PMHx prostate cancer s/p XRT, CHF (diastolic & systolic), thoracic aortic aneurysm, cardiomyopathy, HTN, HLD, Parkinson's Disease, Polymyalgia rheumatica, who presents today with 3 weeks of progressively worsening shortness of breath likely secondary to Acute over chronic diastolic/systolic exacerbation of CHF. # Acute diastolic Exacerbation of CHF: on IV lasix 40mg bid/coreg/diovan , cardio consult, echo ordered # hx of 4.5 cm ascending aortic aneurysm: follow up aS an outpatient # HTN: continue home meds. #Hx of Parkinsons: continue Sinemet QID, Mirapex TID, Remeron Daily # Hx Polymalgyia rheumatica on Prednisone 5mg BID # Hx of HLD: patient is off atorvastatin at home, lipid panel # Hx of Prostate cancer # Anemia DVT: Heparin SQ TID upon d/c follow up with [facility] :
--- NOTE | 2019-04-23 09:42 | PN ---
Progress Note, Physician History of Present Illness: Dyspnea, orthopnea, LE edema, O2 requirement improving with diuresis and BP control. He had been noncompliant with meds and diet. - Current Medication List Current Medications: Active Medications Atorvastatin Calcium (Lipitor -) 40 mg PO HS [facility] Last Admin: 04/22/19 22:17 Dose: 40 mg Carbidopa/Levodopa (Sinemet *Cr* 25/100 -) 1 combo PO QID [facility] Last Admin: 04/22/19 22:16 Dose: 1 combo Carvedilol (Coreg -) 6.25 mg PO BID [facility] Last Admin: 04/22/19 22:19 Dose: 6.25 mg Docusate Sodium (Colace -) 100 mg PO DAILY [facility] Fluticasone Propionate (Flonase -) 2 spray NS DAILY [facility] Furosemide (Lasix Injection -) 40 mg IVPUSH BIDLASIX [facility] Last Admin: 04/23/19 07:06 Dose: 40 mg Heparin Sodium (Porcine) (Heparin -) 5,000 unit SQ TID [facility] Last Admin: 04/23/19 07:06 Dose: 5,000 unit Mirtazapine (Remeron -) 7.5 mg PO HS [facility] Last Admin: 04/22/19 22:17 Dose: 7.5 mg Non-Formulary Medication (Glucosamine/Chondroitn/C/Ignacio [Glucosamine-Chondr Complex Tab]) 1 each PO DAILY [facility] Pramipexole Dihydrochloride (Mirapex -) 0.25 mg PO TID [facility] Last Admin: 04/23/19 07:06 Dose: 0.25 mg Prednisone (Deltasone -) 5 mg PO BID [facility] Last Admin: 04/22/19 22:19 Dose: 5 mg Senna (Senna -) 1 tab PO HS [facility] Last Admin: 04/22/19 22:16 Dose: 1 tab Valsartan (Diovan -) 80 mg PO DAILY [facility] Last Admin: 04/22/19 22:19 Dose: 80 mg - Objective Vital Signs: Vital Signs Temperature 97.1 F L 04/22/19 17:14 Pulse Rate 66 04/23/19 08:15 Respiratory Rate 20 04/23/19 08:15 Blood Pressure 146/68 04/23/19 08:15 O2 Sat by Pulse Oximetry (%) 100 04/23/19 08:15 Constitutional: Yes: No Distress, Calm, Thin Neck: Yes: Supple Cardiovascular: Yes: Regular Rate and Rhythm Respiratory: Yes: Regular, Diminished, On Nasal O2 Gastrointestinal: Yes: Soft, Hypoactive Bowel Sounds Edema: No Labs: CBC, BMP 04/23/19 07:10 04/23/19 07:10 INR, PTT INR 1.01 (0.83-1.09) 04/22/19 18:15 - ....Imaging Chest X-ray: Report Reviewed (Improved congestion) EKG: Report Reviewed (Tele: NSR) Problem List - Problems (1) Hyperlipidemia Code(s): E78.5 - HYPERLIPIDEMIA, UNSPECIFIED Qualifiers: Hyperlipidemia type: pure hypercholesterolemia Qualified Code(s): E78.00 - Pure hypercholesterolemia, unspecified; E78.0 - Pure hypercholesterolemia (2) Hypertensive cardiomyopathy Code(s): I11.9 - HYPERTENSIVE HEART DISEASE WITHOUT HEART FAILURE; I43 - CARDIOMYOPATHY IN DISEASES CLASSIFIED ELSEWHERE Qualifiers: Heart failure presence: with heart failure Qualified Code(s): I11.0 - Hypertensive heart disease with heart failure; I43 - Cardiomyopathy in diseases classified elsewhere (3) Parkinson disease Code(s): G20 - PARKINSON'S DISEASE (4) Polymyalgia rheumatica Code(s): M35.3 - POLYMYALGIA RHEUMATICA (5) CHF exacerbation Code(s): I50.9 - HEART FAILURE, UNSPECIFIED Qualifiers: Heart failure type: combined systolic and diastolic Qualified Code(s): I50.43 - Acute on chronic combined systolic (congestive) and diastolic ( congestive) heart failure Assessment/Plan 04/22/[address]: 4.3 cm ascending aorta aneurysm stable, dilatation of main PA suggests pulm HTN 08/13/2018 Echo: Normal LV size with mild-mod decreased LV fxn, mild ARABELLA, mod AR , mild ao root dilatation 08/12/[address]: CHF, small pericardial effusion, 4.5 cm ascending aorta aneurysm 06/21/2017 Echo Mildly decreased LV fxn with moderate lateral wall HK, mild MR, TR, AR 1. Acute on chronic systolic/diastolic heart failure in context of medication and diet noncompliance improving 2. Hypertensive cardiomyopathy not at goal control 3. CAD, demand ischemia 4. Hyperlipidemia 5. Parkinson disease 6. Polymyalgia rheumatica on chronic prednisone 7. Prostate cancer 8. Anemia 9. 4.5 cm ascending aortic aneurysm P:1. IV diuresis with monitor diuretic response, renal fxn and electrolytes, replete K, Mg as needed 2. Continue carvedilol 6.25 bid, Diovan 80 qd with uptitration as tolerated, continue Lipitor 40 qhs 3. Trops flattened 4. Echo to assess ventricular and valve fxn 5. Wean FIO2 to maintain saO2>90% 6. Eventual f/u in office upon d/c
[2019-04-23] MEDS ORDERED: [UNRECOGNIZED DRUG - OTHER] PO SCH (10:00)
[2019-04-23] MEDS ORDERED: CARVEDILOL 6.25 MG TABLET (FP) PO SCH (10:00)
[2019-04-23] MEDS ORDERED: VALSARTAN 80 MG TABLET (UD) PO SCH (10:00)
[2019-04-23] MEDS ORDERED: DOCUSATE SODIUM 100 MG CAPSULE (FP) PO ONE (11:10)
[2019-04-23] MEDS: VALSARTAN 80 MG TABLET (UD) PO SCH (11:15)
[2019-04-23] MEDS: DOCUSATE SODIUM 100 MG CAPSULE (FP) PO SCH (11:15)
[2019-04-23] MEDS: CARVEDILOL 6.25 MG TABLET (FP) PO SCH ×2 (11:15→21:37)
[2019-04-23] MEDS: predniSONE 5 MG TABLET (UD) PO SCH ×2 (11:15→21:37)
[2019-04-23] MEDS: FLUTICASONE PROP 0.05% 16 GM NASAL SPRAY NS SCH (11:17)
[2019-04-23 14:54] VITALS: BMI 25.7
--- NOTE | 2019-04-23 15:15 | EKG ---
Test Reason : Blood Pressure : / mmHG Vent. Rate : 070 BPM Atrial Rate : 070 BPM P-R Int : 270 ms QRS Dur : 082 ms QT Int : 422 ms P-R-T Axes : 043 001 -05 degrees QTc Int : 455 ms SINUS RHYTHM WITH 1ST DEGREE A-V BLOCK WITH OCCASIONAL PREMATURE VENTRICULAR COMPLEXES ABNORMAL ECG WHEN COMPARED WITH ECG OF 13-AUG-2018 13:49, PREMATURE VENTRICULAR COMPLEXES ARE NOW PRESENT NON-SPECIFIC CHANGE IN ST SEGMENT IN ANTERIOR LEADS T WAVE INVERSION NOW EVIDENT IN LATERAL LEADS Confirmed by ALEX LOO MD ([id number]) on 04/23/2019 3:14:55 PM Referred By: Confirmed By:ALEX LOO MD
[2019-04-23] MEDS ORDERED: ACETAMINOPHEN 325 MG TABLET (FP) PO PRN (16:50)
--- NOTE | 2019-04-23 17:21 | PN ---
Physical Exam: SUBJECTIVE: Patient seen and examined at bedside. pt states that he feels sob. he states that it is better than yesterday. he states that when hes home he doesnt like taking lasix because he doesnt like getting up to use the bathroom so he hasnt been taking his prescribed dose. OBJECTIVE: Vital Signs Period Temp Pulse Resp BP Sys/Valenzuela Pulse Ox Last 24 Hr 97.1 F-98.1 F 64-86 14-24 138-188/56-90 97-100 GENERAL: The patient is awake, alert, and fully oriented, in no acute distress. HEAD: Normal with no signs of trauma. LUNGS: Breath sounds decreased at bases, rhonchi worse on R> L.no accessory muscle use. on 2L NC HEART: Regular rate and rhythm, S1, S2 ABDOMEN: Soft, nontender, nondistended, normoactive bowel sounds, no guarding EXTREMITIES: 2+ pulses, warm, well-perfused NEUROLOGICAL: Cranial nerves II through XII grossly intact. PSYCH: Normal mood, normal affect. SKIN: Warm, dry, normal turgor, no rashes or lesions noted Laboratory Last Values WBC 7.2 K/mm3 (4.0-10.0) 04/23/19 07:10 RBC 3.44 M/mm3 (4.00-5.60) L 04/23/19 07:10 Hgb 11.3 GM/dL (11.7-16.9) L 04/23/19 07:10 Hct 33.5 % (35.4-49) L 04/23/19 07:10 MCV 97.3 fl (80-96) H 04/23/19 07:10 MCH 32.9 pg (25.7-33.7) 04/23/19 07:10 MCHC 33.8 g/dl (32.0-35.9) 04/23/19 07:10 RDW 15.3 % (11.9-15.9) 04/23/19 07:10 Plt Count 204 K/MM3 (134-434) 04/23/19 07:10 MPV 9.4 fl (7.5-11.1) 04/23/19 07:10 Absolute Neuts (auto) 6.3 K/mm3 (1.5-8.0) 04/23/19 07:10 Neutrophils % 88.4 % (42.8-82.8) H 04/23/19 07:10 Lymphocytes % 3.8 % (8-40) L D 04/23/19 07:10 Monocytes % 5.4 % (3.8-10.2) 04/23/19 07:10 Eosinophils % 1.2 % (0-4.5) 04/23/19 07:10 Basophils % 1.2 % (0-2.0) 04/23/19 07:10 Nucleated RBC % 0 % (0-0) 04/23/19 07:10 PT with INR 11.90 SEC (9.7-13.0) 04/22/19 18:15 INR 1.01 (0.83-1.09) 04/22/19 18:15 PTT (Actin FS) 29.1 SECONDS (25.2-36.5) 04/22/19 18:15 Anticoagulation Therapy No Result Required. 04/22/19 17:32 Puncture Site Left radial 04/22/19 17:32 ABG pH 7.43 (7.35-7.45) 04/22/19 17:32 ABG pCO2 at Pt Temp 41.3 mmHg (35-45) 04/22/19 17:32 ABG pO2 at Pt Temp 142 mmHg (80-100) H 04/22/19 17:32 ABG HCO3 27.0 mmol/L (22-27) 04/22/19 17:32 ABG O2 Sat (Measured) 99.1 % (95-98) H 04/22/19 17:32 ABG O2 Content 15.1 % vol 04/22/19 17:32 ABG Base Excess 2.9 meq/l (-2-2) H 04/22/19 17:32 Yoel Test Positive 04/22/19 17:32 Carboxyhemoglobin 1.5 % (0-2) 04/22/19 17:32 Methemoglobin < 1.0 % (0-2) 04/22/19 17:32 O2 Delivery Device No Result Required. 04/22/19 17:32 Oxygen Flow Rate 6 04/22/19 17:32 Vent Mode No Result Required. 04/22/19 17:32 Vent Rate No Result Required. 04/22/19 17:32 Mechanical Rate No Result Required. 04/22/19 17:32 Pressure Support Vent No Result Required. 04/22/19 17:32 Sodium 141 mmol/L (136-145) 04/23/19 07:10 Potassium 3.7 mmol/L (3.5-5.1) 04/23/19 07:10 Chloride 107 mmol/L (98-107) 04/23/19 07:10 Carbon Dioxide 26 mmol/L (21-32) 04/23/19 07:10 Anion Gap 8 MMOL/L (8-16) 04/23/19 07:10 BUN 25.1 mg/dL (7-18) H 04/23/19 07:10 Creatinine 1.1 mg/dL (0.55-1.3) 04/23/19 07:10 Est GFR (CKD-EPI)AfAm 71.07 04/23/19 07:10 Est GFR (CKD-EPI)NonAf 61.32 04/23/19 07:10 Random Glucose 139 mg/dL (74-106) H 04/23/19 07:10 Calcium 8.5 mg/dL (8.5-10.1) 04/23/19 07:10 Magnesium 2.0 mg/dL (1.8-2.4) 04/22/19 18:15 Iron 40 ug/dL (50-175) L 04/23/19 07:10 TIBC 314 ug/dL (250-450) 04/23/19 07:10 Iron Saturation 12 % (17.5-39) L 04/23/19 07:10 Unsaturated IBC 274 ug/dL (200-275) 04/23/19 07:10 Ferritin 95.7 ng/ml (8-388) 04/23/19 07:10 Total Bilirubin 0.9 mg/dL (0.2-1) 04/23/19 07:10 AST 15 U/L (15-37) 04/23/19 07:10 ALT 12 U/L (13-61) L 04/23/19 07:10 Alkaline Phosphatase 66 U/L (45-117) 04/23/19 07:10 Creatine Kinase 72 U/L (26-308) 04/22/19 18:15 Troponin I 0.05 ng/ml (0.00-0.05) 04/23/19 07:10 B-Natriuretic Peptide 96496.2 pg/ml (5-450) H 04/22/19 18:15 Total Protein 6.3 g/dl (6.4-8.2) L 04/23/19 07:10 Albumin 3.2 g/dl (3.4-5.0) L 04/23/19 07:10 Triglycerides 60 mg/dL (0-150) 04/23/19 07:10 Cholesterol 208 mg/dL (50-200) H 04/23/19 07:10 Total LDL Cholesterol 135 mg/dL (5-100) H 04/23/19 07:10 HDL Cholesterol 59 mg/dL (40-60) 04/23/19 07:10 Vitamin B12 701 pg/ml (193-986) 04/23/19 07:10 Current Medications Acetaminophen (Tylenol -) 650 mg PO Q6H PRN PRN Reason: PAIN LEVEL 6-10 Atorvastatin Calcium (Lipitor -) 40 mg PO [facility] Last Admin: 04/22/19 22:17 Dose: 40 mg Carbidopa/Levodopa (Sinemet *Cr* 25/100 -) 1 combo PO QID [facility] Last Admin: 04/23/19 14:26 Dose: 1 combo Carvedilol (Coreg -) 6.25 mg PO BID [facility] Last Admin: 04/23/19 11:15 Dose: 6.25 mg Docusate Sodium (Colace -) 100 mg PO DAILY [facility] Last Admin: 04/23/19 11:15 Dose: 100 mg Fluticasone Propionate (Flonase -) 2 spray NS DAILY [facility] Last Admin: 04/23/19 11:17 Dose: Not Given Furosemide (Lasix Injection -) 40 mg IVPUSH BIDLASIX [facility] Last Admin: 04/23/19 14:26 Dose: 40 mg Heparin Sodium (Porcine) (Heparin -) 5,000 unit SQ TID [facility] Last Admin: 04/23/19 14:26 Dose: 5,000 unit Mirtazapine (Remeron -) 7.5 mg PO HS [facility] Last Admin: 04/22/19 22:17 Dose: 7.5 mg Non-Formulary Medication (Glucosamine/Chondroitn/C/Ignacio [Glucosamine-Chondr Complex Tab]) 1 each PO DAILY [facility] Pramipexole Dihydrochloride (Mirapex -) 0.25 mg PO TID [facility] Last Admin: 04/23/19 14:26 Dose: 0.25 mg Prednisone (Deltasone -) 5 mg PO BID [facility] Last Admin: 04/23/19 11:15 Dose: 5 mg Senna (Senna -) 1 tab PO HS [facility] Last Admin: 04/22/19 22:16 Dose: 1 tab Valsartan (Diovan -) 80 mg PO DAILY [facility] Last Admin: 04/23/19 11:15 Dose: 80 mg ASSESSMENT/PLAN: 83 yo M PMH prostate cancer( s/p XRT), HFpEF/HFrEF , thoracic aortic aneurysm, CM, HTN, HLD, Parkinson's Disease, Polymyalgia rheumatica, who presents today with 3 weeks of progressively worsening shortness of breath likely secondary to Acute exacerbation of CHF. Acute Exacerbation of CHF -Likely 2/2 to nonadherence to medication and sodium restricted diet -Troponin elevated at 0.05 x 2; BNP 28517.2 -Chest X-Ray shows congestive changes, similar to previous admission in August 2018. XR this morning shows improvement. will repeat tomorrow am -EKG shows 1st degree AV block, no ST changes. -c/w lasix 40 IV BID -Echo in August shows LA, RA LV function moderately reduced . rpt Echo pending -Continous cardiac monitoring -Daily weights, strict I&Os -c/w Carvedilol 6.25 mg PO BID, Valsartan 80 mg PO Daily -Chest CT reviewed -Cardiology recs appreciated HTN -Continue Valsartan 80 mg Daily. will give 80 mg po once as pt's BP has been elevated this afternoon - continue to monitor Hx of Parkinsons -Sinamet QID -Mirapex TID -Remeron Daily Hx Polymalgyia rheumatica -Prednisone 5mg BID HLD -cholesterol 208, LDL 135 - Atorvastatin 40 mg HS F: Fluid restriction, oral hydration only E: Monitor CMP N: Sodium restricted diet DVT: Heparin SQ TID Dispo:telemetry Visit type - Emergency Visit Emergency Visit: No - New Patient This patient is new to me today: Yes Date on this admission: 04/23/19 - Critical Care Critical Care patient: No - Discharge Referral Referred to [facility] Med P.C.: No ATTENDING PHYSICIAN STATEMENT I saw and evaluated the patient. I reviewed the resident's note and discussed the case with the resident. I agree with the resident's findings and plan as documented. SUBJECTIVE: OBJECTIVE: ASSESSMENT AND PLAN:
[2019-04-23] MEDS ORDERED: VALSARTAN 80 MG TABLET (UD) PO ONE (17:41)
[2019-04-23] MEDS: MIRTAZAPINE 15 MG TABLET (FP) PO SCH (21:36)
[2019-04-23] MEDS: ATORVASTATIN CA 40 MG TABLET (FP) PO SCH (21:36)
[2019-04-23] MEDS: SENNOSIDES 8.6MG TABLET (FP) PO SCH (21:37)
[2019-04-24] MEDS ORDERED: ALBUTEROL SO4 2.5/IPRATROPIUM 0.5 INH SOL 3 ML VIAL.NEB. NEB ONE (03:38)
[2019-04-24] MEDS ORDERED: amLODIPine BESYLATE 5 MG TABLET (FP) PO ONE (03:38)
[2019-04-24] MEDS: FUROSEMIDE 40 MG/4 ML INJECTABLE VIAL IVPUSH SCH ×3 (04:03→13:20)
[2019-04-24] MEDS: HEPARIN NA (PORCINE) 5,000 UNITS/ML 1ML VIAL SQ SCH ×3 (07:16→23:22)
[2019-04-24] MEDS: PRAMIPEXOLE DIHYDROCHLORIDE 0.25 MG TABLET PO SCH ×3 (07:17→23:23)
[2019-04-24 07:40] LABS: BASO % 0.9 % (0-2.0); EOS % 1.5 % (0-4.5); HEMATOCRIT 31.3 % (35.4-49); HEMOGLOBIN 10.8 GM/dL (11.7-16.9); LYMPH % 6.2 % (8-40); MCH 33.5 pg (25.7-33.7); MCHC 34.5 g/dl (32.0-35.9); MEAN CELL VOLUME 97.1 fl (80-96); MEAN PLT VOLUME 9.4 fl (7.5-11.1); MONO % 9.8 % (3.8-10.2); NEUT % 81.6 % (42.8-82.8); PLATELET COUNT 194 K/MM3 (134-434); RBC 3.22 M/mm3 (4.00-5.60); RDW 14.5 % (11.9-15.9); WHITE BLOOD COUNT 5.7 K/mm3 (4.0-10.0)
[2019-04-24 08:09] LABS: ALBUMIN 3.1 g/dl (3.4-5.0); BILIRUBIN,TOTAL 0.9 mg/dL (0.2-1); BLOOD UREA NITROGEN 23.8 mg/dL (7-18); MAGNESIUM 2.1 mg/dL (1.8-2.4); PHOSPHOROUS 2.8 mg/dL (2.5-4.9); POTASSIUM 3.3 mmol/L (3.5-5.1); TOT PROT 6.2 g/dl (6.4-8.2)
[2019-04-24] MEDS: DOCUSATE SODIUM 100 MG CAPSULE (FP) PO SCH (10:21)
[2019-04-24] MEDS: VALSARTAN 80 MG TABLET (UD) PO SCH (10:21)
[2019-04-24] MEDS: CARVEDILOL 6.25 MG TABLET (FP) PO SCH ×2 (10:21→23:22)
[2019-04-24] MEDS: predniSONE 5 MG TABLET (UD) PO SCH ×2 (10:21→23:22)
--- NOTE | 2019-04-24 10:21 | PN ---
Progress Note, Physician History of Present Illness: Dyspnea, orthopnea, LE edema, O2 requirement improving with diuresis and BP control. He had been noncompliant with meds and diet. Feels weak. - Current Medication List Current Medications: Active Medications Acetaminophen (Tylenol -) 650 mg PO Q6H PRN PRN Reason: PAIN LEVEL 6-10 Last Admin: 04/23/19 17:09 Dose: 650 mg Atorvastatin Calcium (Lipitor -) 40 mg PO HS [facility] Last Admin: 04/23/19 21:36 Dose: 40 mg Carbidopa/Levodopa (Sinemet *Cr* 25/100 -) 1 combo PO QID [facility] Last Admin: 04/23/19 21:37 Dose: 1 combo Carvedilol (Coreg -) 6.25 mg PO BID [facility] Last Admin: 04/23/19 21:37 Dose: 6.25 mg Docusate Sodium (Colace -) 100 mg PO DAILY [facility] Last Admin: 04/23/19 11:15 Dose: 100 mg Fluticasone Propionate (Flonase -) 2 spray NS DAILY [facility] Last Admin: 04/23/19 11:17 Dose: Not Given Furosemide (Lasix Injection -) 40 mg IVPUSH BIDLASIX [facility] Last Admin: 04/24/19 07:15 Dose: Not Given Heparin Sodium (Porcine) (Heparin -) 5,000 unit SQ TID [facility] Last Admin: 04/24/19 07:16 Dose: 5,000 unit Mirtazapine (Remeron -) 7.5 mg PO HS [facility] Last Admin: 04/23/19 21:36 Dose: 7.5 mg Non-Formulary Medication (Glucosamine/Chondroitn/C/Ignacio [Glucosamine-Chondr Complex Tab]) 1 each PO DAILY [facility] Pramipexole Dihydrochloride (Mirapex -) 0.25 mg PO TID [facility] Last Admin: 04/24/19 07:17 Dose: 0.25 mg Prednisone (Deltasone -) 5 mg PO BID [facility] Last Admin: 04/23/19 21:37 Dose: 5 mg Senna (Senna -) 1 tab PO HS [facility] Last Admin: 04/23/19 21:37 Dose: 1 tab Valsartan (Diovan -) 80 mg PO DAILY [facility] Last Admin: 04/23/19 11:15 Dose: 80 mg - Objective Vital Signs: Vital Signs Temperature 98.0 F 04/24/19 03:31 Pulse Rate 61 04/24/19 03:31 Respiratory Rate 22 H 04/24/19 03:31 Blood Pressure 176/76 H 04/24/19 03:31 O2 Sat by Pulse Oximetry (%) 97 04/24/19 03:30 Constitutional: Yes: No Distress, Calm, Thin Neck: Yes: Supple Cardiovascular: Yes: Regular Rate and Rhythm Respiratory: Yes: Regular, Diminished, Rales Gastrointestinal: Yes: Normal Bowel Sounds, Soft Edema: No Labs: CBC, BMP 04/24/19 05:40 04/24/19 05:40 INR, PTT INR 1.01 (0.83-1.09) 04/22/19 18:15 - ....Imaging Chest X-ray: Report Reviewed (Improved congestion) EKG: Report Reviewed (Tele: NSR) Problem List - Problems (1) Hyperlipidemia Code(s): E78.5 - HYPERLIPIDEMIA, UNSPECIFIED Qualifiers: Hyperlipidemia type: pure hypercholesterolemia Qualified Code(s): E78.00 - Pure hypercholesterolemia, unspecified; E78.0 - Pure hypercholesterolemia (2) Hypertensive cardiomyopathy Code(s): I11.9 - HYPERTENSIVE HEART DISEASE WITHOUT HEART FAILURE; I43 - CARDIOMYOPATHY IN DISEASES CLASSIFIED ELSEWHERE Qualifiers: Heart failure presence: with heart failure Qualified Code(s): I11.0 - Hypertensive heart disease with heart failure; I43 - Cardiomyopathy in diseases classified elsewhere (3) Parkinson disease Code(s): G20 - PARKINSON'S DISEASE (4) Polymyalgia rheumatica Code(s): M35.3 - POLYMYALGIA RHEUMATICA (5) CHF exacerbation Code(s): I50.9 - HEART FAILURE, UNSPECIFIED Qualifiers: Heart failure type: combined systolic and diastolic Qualified Code(s): I50.43 - Acute on chronic combined systolic (congestive) and diastolic ( congestive) heart failure Assessment/Plan 04/22/[address]: 4.3 cm ascending aorta aneurysm stable, dilatation of main PA suggests pulm HTN 08/13/2018 Echo: Normal LV size with mild-mod decreased LV fxn, mild ARABELLA, mod AR , mild ao root dilatation 08/12/[address]: CHF, small pericardial effusion, 4.5 cm ascending aorta aneurysm 04/23/2019 Echo: Mod cLVH LVEF 50-55%, grade II diastolic dysfunction, mild LAE , mild TR RVSP 30-40 mmHg, mild dilated ao 3.8 cm, small pericardial effusion 06/21/2017 Echo Mildly decreased LV fxn with moderate lateral wall HK, mild MR, TR, AR 1. Acute on chronic diastolic heart failure in context of medication and diet noncompliance improving 2. Hypertensive cardiomyopathy not at goal control 3. CAD, angina pectoris 4. Hyperlipidemia 5. Parkinson disease 6. Polymyalgia rheumatica on chronic prednisone 7. Prostate cancer 8. Anemia 9. 4.5 cm ascending aortic aneurysm P:1. Decrease IV diuresis with monitor diuretic response, renal fxn and electrolytes, replete K, Mg as needed 2. Continue carvedilol 6.25 bid, increase Diovan 160 qd with uptitration as tolerated, continue Lipitor 40 qhs 3. Wean FIO2 to maintain saO2>90% 4. Encourage ambulation, emphasize importance of medication and diet compliance 5. Eventual f/u in office upon d/c
--- NOTE | 2019-04-24 10:39 | ECHO ---
Name: SEAMUS, TASNEEM Exam:Adult Echocardiogram Study Date: 04/24/2019 08:58 AM Age: 83 yrs Reason For Study: CHF Height: 72 in Weight: 173 lb BSA: 2.0 m2 MMode/2D Measurements & Calculations RVDd: 4.3 cm Ao root diam: 3.5 cm IVSd: 1.3 cm LA dimension: 5.1 cm LVIDd: 5.5 cm ACS: 2.2 cm LVIDs: 3.7 cm LVPWd: 1.4 cm EDV(Teich): 148.2 ml LVOT diam: 2.4 cm ESV(Teich): 57.9 ml LAV (MOD-bp): 117.0 ml TAPSE: 3.0 cm RV S Jeremy: 18.2 cm/sec Doppler Measurements & Calculations MV E max jeremy: 62.3 cm/sec Ao V2 max: 133.0 cm/sec MV A max jeremy: 56.1 cm/sec Ao max P.1 mmHg MV E/A: 1.1 Ao V2 mean: 90.3 cm/sec MV dec time: 0.25 sec Ao mean P.8 mmHg Ao V2 VTI: 28.0 cm CAMILA(I,D): 2.7 cm2 CAMILA(V,D): 2.9 cm2 LV V1 max P.1 mmHg SV(LVOT): 75.0 ml LV V1 mean P.4 mmHg LV V1 max: 88.7 cm/sec LV V1 mean: 53.9 cm/sec LV V1 VTI: 17.1 cm TR max jeremy: 283.7 cm/sec PA V2 max: 101.8 cm/sec TR max P.2 mmHg PA max P.1 mmHg PI end-d jeremy: 58.4 cm/sec Med Peak E' Jeremy: 5.1 cm/sec Med E/e': 12.1 Lat Peak E' Jeremy: 6.2 cm/sec Lat E/e': 10.0 Pulm Sys Jeremy: 33.6 cm/sec Pulm Valenzuela Jeremy: 58.3 cm/sec Pulm S/D: 0.58 Left Ventricle There is moderate concentric left ventricular hypertrophy. Ejection Fraction = 50-55%. Left ventricul ar systolic function is normal. The transmitral spectral Doppler flow pattern is suggestive of pseudonormalization. Right Ventricle The right ventricle is normal in size and function. Atria The left atrium is moderately dilated. The right atrium is mildly dilated. Mitral Valve The mitral valve is grossly normal. There is no mitral valve stenosis. There is trace mitral regurgit ation. Tricuspid Valve The tricuspid valve is normal in structure and function. There is mild tricuspid regurgitation. Right ventricular systolic pressure is elevated at 30-40mmHg. Aortic Valve There is mild aortic sclerosis.;. No hemodynamically significant valvular aortic stenosis. Mild aorti c regurgitation. Pulmonic Valve The pulmonic valve is not well seen, but is grossly normal. There is no pulmonic valvular stenosis. T race to mild pulmonic valvular regurgitation. Great Vessels The aortic root is normal size. Mildly dilated ascending aorta. The ascending aorta is mildly dilated : 3.8cm. Pericardium/Pleura Small pericardial effusion (<1cm). There are no echocardiographic indications of cardiac tamponade. Interpretation Summary There is moderate concentric left ventricular hypertrophy. Ejection Fraction = 50-55%. Left ventricular systolic function is normal. The transmitral spectral Doppler flow pattern is suggestive of pseudonormalization. The left atrium is moderately dilated. There is mild tricuspid regurgitation. Right ventricular systolic pressure is elevated at 30-40mmHg. Mild aortic regurgitation. Mildly dilated ascending aorta. The ascending aorta is mildly dilated: 3.8cm Small pericardial effusion (<1cm) There are no echocardiographic indications of cardiac tamponade. MD Sanches *Gayle 04/24/2019 10:39 AM
[2019-04-24] MEDS ORDERED: POTASSIUM CHLORIDE TABS 20 MEQ TABLET.ER (FP) PO ONE (11:57)
[2019-04-24] MEDS ORDERED: VALSARTAN 160 MG TABLET (UD) PO SCH (13:06)
[2019-04-24] MEDS: FLUTICASONE PROP 0.05% 16 GM NASAL SPRAY NS SCH (13:18)
--- NOTE | 2019-04-24 15:00 | PN ---
Physical Exam: SUBJECTIVE: Patient seen and examined at bedside. pt states that his SOB is improving. pt is still on NC O2. pt is upset bc he is having a hard time sleeping 2/2 Parkinson sxs OBJECTIVE: Vital Signs Period Temp Pulse Resp BP Sys/Valenzuela Pulse Ox Last 24 Hr 97.7 F-98.7 F 54-69 15-22 148-180/60-145 84-97 GENERAL: The patient is awake, alert, and fully oriented, in no acute distress. HEAD: Normal with no signs of trauma. NECK: Trachea midline, full range of motion, supple. no JVD LUNGS: Breath sounds R> L , scattered crackles, no accessory muscle use. on 2 L NC HEART: Regular rate and rhythm, S1, S2 without murmur, rub or gallop. ABDOMEN: Soft, nontender, nondistended, normoactive bowel sounds, no guarding EXTREMITIES: 2+ pulses, warm, well-perfused, no edema. SKIN: Warm, dry, normal turgor, no rashes or lesions noted Laboratory Results - last 24 hr 04/24/19 04/24/19 05:40 05:40 WBC 5.7 RBC 3.22 L Hgb 10.8 L Hct 31.3 L MCV 97.1 H MCH 33.5 MCHC 34.5 RDW 14.5 Plt Count 194 MPV 9.4 Absolute Neuts (auto) 4.6 Neutrophils % 81.6 Lymphocytes % 6.2 L D Monocytes % 9.8 D Eosinophils % 1.5 Basophils % 0.9 Nucleated RBC % 0 Sodium 141 Potassium 3.3 L Chloride 103 Carbon Dioxide 30 Anion Gap 8 BUN 23.8 H Creatinine 1.0 Est GFR (CKD-EPI)AfAm 79.75 Est GFR (CKD-EPI)NonAf 68.81 Random Glucose 83 Calcium 8.0 L Phosphorus 2.8 Magnesium 2.1 Total Bilirubin 0.9 AST 19 ALT 10 L Alkaline Phosphatase 61 Total Protein 6.2 L Albumin 3.1 L Current Medications Acetaminophen (Tylenol -) 650 mg PO Q6H PRN PRN Reason: PAIN LEVEL 6-10 Last Admin: 04/23/19 17:09 Dose: 650 mg Atorvastatin Calcium (Lipitor -) 40 mg PO HS [facility] Last Admin: 04/23/19 21:36 Dose: 40 mg Carbidopa/Levodopa (Sinemet *Cr* 25/100 -) 1 combo PO QID [facility] Last Admin: 04/24/19 13:20 Dose: 1 combo Carvedilol (Coreg -) 6.25 mg PO BID [facility] Last Admin: 04/24/19 10:21 Dose: 6.25 mg Docusate Sodium (Colace -) 100 mg PO DAILY [facility] Last Admin: 04/24/19 10:21 Dose: 100 mg Fluticasone Propionate (Flonase -) 2 spray NS DAILY [facility] Last Admin: 04/24/19 13:18 Dose: Not Given Furosemide (Lasix Injection -) 40 mg IVPUSH DAILY [facility] Heparin Sodium (Porcine) (Heparin -) 5,000 unit SQ TID [facility] Last Admin: 04/24/19 13:20 Dose: 5,000 unit Magnesium Oxide (Mag-Ox -) 400 mg PO HS [facility] Melatonin (Melatonin) 5 mg PO HS PRN PRN Reason: INSOMNIA Mirtazapine (Remeron -) 7.5 mg PO HS [facility] Last Admin: 04/23/19 21:36 Dose: 7.5 mg Non-Formulary Medication (Glucosamine/Chondroitn/C/Ignacio [Glucosamine-Chondr Complex Tab]) 1 each PO DAILY [facility] Pramipexole Dihydrochloride (Mirapex -) 0.25 mg PO TID [facility] Last Admin: 04/24/19 13:20 Dose: 0.25 mg Prednisone (Deltasone -) 5 mg PO BID [facility] Last Admin: 04/24/19 10:21 Dose: 5 mg Senna (Senna -) 1 tab PO HS [facility] Last Admin: 04/23/19 21:37 Dose: 1 tab Valsartan (Diovan -) 160 mg PO DAILY [facility] 04/23/2019 Echo: Mod cLVH LVEF 50-55%, grade II diastolic dysfunction, mild LAE , mild TR RVSP 30-40 mmHg, mild dilated ao 3.8 cm, small pericardial effusion ASSESSMENT/PLAN: 83 yo M PMH prostate cancer( s/p XRT), HFpEF/HFrEF , thoracic aortic aneurysm, CM, HTN, HLD, Parkinson's Disease, Polymyalgia rheumatica, who presents today with 3 weeks of progressively worsening shortness of breath likely secondary to Acute exacerbation of CHF. Acute Exacerbation of CHF -Likely 2/2 to nonadherence to medication and sodium restricted diet -Troponin elevated at 0.05 x 2; BNP 22287.2 -Chest X-Ray shows congestive changes, similar to previous admission in August 2018. XR this morning shows improvement. -EKG shows 1st degree AV block, no ST changes. -will decrease lasix 40 IV to daily. -Echo in August shows LA, RA LV function moderately reduced . rpt Echo showing grade II diastolic dysfxn -Continous cardiac monitoring -Daily weights, strict I&Os -c/w Carvedilol 6.25 mg PO BID, Valsartan 160 mg PO Daily -Chest CT reviewed -Cardiology recs appreciated HTN -Continue Valsartan 160 mg Daily. - continue to monitor Hx of Parkinsons -Sinamet QID -Mirapex TID -Remeron Daily Hx Polymalgyia rheumatica -Prednisone 5mg BID HLD -cholesterol 208, LDL 135 - Atorvastatin 40 mg HS F: Fluid restriction, oral hydration only E: Monitor CMP N: Sodium restricted diet DVT: Heparin SQ TID Dispo:telemetry Visit type - Emergency Visit Emergency Visit: No - New Patient This patient is new to me today: No - Critical Care Critical Care patient: No - Discharge Referral Referred to [facility] No ATTENDING PHYSICIAN STATEMENT I saw and evaluated the patient. I reviewed the resident's note and discussed the case with the resident. I agree with the resident's findings and plan as documented. SUBJECTIVE: OBJECTIVE: ASSESSMENT AND PLAN:
[2019-04-24 15:24] VITALS: TEMP 98.2
--- NOTE | 2019-04-24 20:23 | PN ---
Teaching Attending Note Name of Resident: Crystal Esteves ATTENDING PHYSICIAN STATEMENT I saw and evaluated the patient. I reviewed the resident's note and discussed the case with the resident. I agree with the resident's findings and plan as documented. SUBJECTIVE: Patient continues to be short of breath. unable to lie down flat. improving. Vital Signs Temperature 98.2 F 04/24/19 14:20 Pulse Rate 63 04/24/19 14:20 Respiratory Rate 18 04/24/19 14:20 Blood Pressure 136/66 04/24/19 14:20 O2 Sat by Pulse Oximetry (%) 95 04/24/19 09:00 GENERAL: The patient is awake, alert, and fully oriented, in no acute distress. On 2L NC HEAD: Normal with no signs of trauma. EYES: PERRL, extraocular movements intact, sclera anicteric, conjunctiva clear. ENT: Ears normal, oropharynx clear without exudates, moist mucous membranes. NECK: Trachea midline, full range of motion, supple. +JVD LUNGS: decreased BS BL, + rhonchi, no crackles, no accessory muscle use. HEART: Regular rate and rhythm, S1, S2 +, JEY 2/6 , no rub or gallop. ABDOMEN: Soft, nontender, nondistended, normoactive bowel sounds, no guarding, no rebound, no hepatosplenomegaly, no masses. EXTREMITIES: 2+ pulses, warm, well-perfused, no edema. NEUROLOGICAL: Cranial nerves II through XII grossly intact. Normal speech, gait not observed. PSYCH: Normal mood, normal affect. SKIN: Warm, dry, normal turgor, no rashes or lesions noted CBCD WBC 5.7 K/mm3 (4.0-10.0) 04/24/19 05:40 RBC 3.22 M/mm3 (4.00-5.60) L 04/24/19 05:40 Hgb 10.8 GM/dL (11.7-16.9) L 04/24/19 05:40 Hct 31.3 % (35.4-49) L 04/24/19 05:40 MCV 97.1 fl (80-96) H 04/24/19 05:40 MCHC 34.5 g/dl (32.0-35.9) 04/24/19 05:40 RDW 14.5 % (11.9-15.9) 04/24/19 05:40 Plt Count 194 K/MM3 (134-434) 04/24/19 05:40 MPV 9.4 fl (7.5-11.1) 04/24/19 05:40 CMP Sodium 141 mmol/L (136-145) 04/24/19 05:40 Potassium 3.3 mmol/L (3.5-5.1) L 04/24/19 05:40 Chloride 103 mmol/L (98-107) 04/24/19 05:40 Carbon Dioxide 30 mmol/L (21-32) 04/24/19 05:40 Anion Gap 8 MMOL/L (8-16) 04/24/19 05:40 BUN 23.8 mg/dL (7-18) H 04/24/19 05:40 Creatinine 1.0 mg/dL (0.55-1.3) 04/24/19 05:40 Random Glucose 83 mg/dL (74-106) 04/24/19 05:40 Calcium 8.0 mg/dL (8.5-10.1) L 04/24/19 05:40 Total Bilirubin 0.9 mg/dL (0.2-1) 04/24/19 05:40 AST 19 U/L (15-37) 04/24/19 05:40 ALT 10 U/L (13-61) L 04/24/19 05:40 Alkaline Phosphatase 61 U/L (45-117) 04/24/19 05:40 Total Protein 6.2 g/dl (6.4-8.2) L 04/24/19 05:40 Albumin 3.1 g/dl (3.4-5.0) L 04/24/19 05:40 CARDIAC ENZYMES Creatine Kinase 72 U/L (26-308) 04/22/19 18:15 Troponin I 0.05 ng/ml (0.00-0.05) 04/23/19 07:10 Home Medications Medication Instructions Recorded Carbidopa/Levodopa *Cr* 25/100 1 combo PO QID 08/12/18 [Sinemet *Cr* 25/100 -] Fluticasone Prop 0.05% Nasal 1 - 2 spray NS DAILY 08/12/18 [Flonase -] Gabapentin [Neurontin] 100 mg PO TID 08/12/18 Glucosamine/Chondroitn/C/Ignacio 1 each PO DAILY 08/12/18 [Glucosamine-Chondr Complex Tab] Mirtazapine 7.5 mg PO DAILY 08/12/18 Prednisone 5 mg PO BID 08/12/18 Sennosides [Senna] 8.6 mg PO DAILY 08/12/18 Atorvastatin Ca [Lipitor] 40 mg PO HS #15 tablet 08/14/18 Carvedilol [Coreg -] 6.25 mg PO BID #30 tablet 08/14/18 Furosemide Injection [Lasix 40 mg IVPUSH DAILY #15 vial 08/14/18 Injection -] Pramipexole Dihydrochloride 0.25 mg PO TID #45 tablet 08/14/18 [Mirapex -] Valsartan [Diovan] 80 mg PO DAILY #15 tablet 08/14/18 Current Medications Generic Name Dose Route Start Last Admin Trade Name Freq PRN Reason Stop Dose Admin Acetaminophen 650 mg 04/23/19 16:50 04/23/19 17:09 Tylenol - PO 650 mg Q6H PRN Administration PAIN LEVEL 6-10 Atorvastatin Calcium 40 mg 04/22/19 22:00 04/23/19 21:36 Lipitor - PO 40 mg HS [facility] Administration Carbidopa/Levodopa 1 combo 04/22/19 22:00 04/24/19 18:28 Sinemet *Cr* 25/100 - PO 1 combo QID [facility] Administration Carvedilol 6.25 mg 04/22/19 22:00 04/24/19 10:21 Coreg - PO 6.25 mg BID [facility] Administration Docusate Sodium 100 mg 04/23/19 10:00 04/24/19 10:21 Colace - PO 100 mg DAILY [facility] Administration Fluticasone Propionate 2 spray 04/23/19 10:00 04/24/19 13:18 Flonase - NS Not Given DAILY [facility] Furosemide 40 mg 04/25/19 10:00 Lasix Injection - IVPUSH DAILY [facility] Heparin Sodium (Porcine) 5,000 unit 04/22/19 22:00 04/24/19 13:20 Heparin - SQ 5,000 unit TID [facility] Administration Magnesium Oxide 400 mg 04/24/19 22:00 Mag-Ox - PO HS [facility] Melatonin 5 mg 04/24/19 22:00 Melatonin PO HS PRN INSOMNIA Mirtazapine 7.5 mg 04/22/19 22:00 04/23/19 21:36 Remeron - PO 7.5 mg HS [facility] Administration Non-Formulary Medication 1 each 04/23/19 10:00 Glucosamine/Chondroitn/C/Ignacio [Glucosamine-Chondr Complex Tab] PO DAILY [facility] Pramipexole Dihydrochloride 0.25 mg 04/22/19 22:00 04/24/19 13:20 Mirapex - PO 0.25 mg TID [facility] Administration Prednisone 5 mg 04/22/19 22:00 04/24/19 10:21 Deltasone - PO 5 mg BID [facility] Administration Senna 1 tab 04/22/19 22:00 04/23/19 21:37 Senna - PO 1 tab HS [facility] Administration Valsartan 160 mg 04/24/19 13:06 Diovan - PO DAILY [facility] Laboratory Tests 06/21/17 06/22/17 04/22/19 10:38 06:30 18:15 Iron TIBC Iron Saturation Unsaturated IBC Ferritin Troponin I 0.05 B-Natriuretic Peptide 98965.2 H Triglycerides Cholesterol Total LDL Cholesterol HDL Cholesterol Serum Folate 15 TSH 1.49 D 0.58 D 04/23/19 04/23/19 07:10 07:10 Iron 40 L TIBC 314 Iron Saturation 12 L Unsaturated IBC 274 Ferritin 95.7 Troponin I 0.05 B-Natriuretic Peptide Triglycerides 60 Cholesterol 208 H Total LDL Cholesterol 135 H HDL Cholesterol 59 Serum Folate TSH 04/22/[address]: 4.3 cm ascending aorta aneurysm stable, dilatation of main PA suggests pulm HTN 08/13/2018 Echo: Normal LV size with mild-mod decreased LV fxn, mild ARABELLA, mod AR , mild ao root dilatation 08/12/[address]: CHF, small pericardial effusion, 4.5 cm ascending aorta aneurysm 06/21/2017 Echo Mildly decreased LV fxn with moderate lateral wall HK, mild MR, TR, AR ASSESSMENT AND PLAN: Patient ia a 83yo male with PMHx prostate cancer s/p XRT, CHF (diastolic & systolic), thoracic aortic aneurysm, cardiomyopathy, HTN, HLD, Parkinson's Disease, Polymyalgia rheumatica, who presents today with 3 weeks of progressively worsening shortness of breath likely secondary to Acute over chronic diastolic/systolic exacerbation of CHF. # Acute diastolic Exacerbation of CHF: on IV lasix 40mg daily now, increased the dose of diovan and continue coreg, cardio consult appreciated, echo reviewed # Hx of 4.5 cm ascending aortic aneurysm: follow up aS an outpatient, patient is aware # HTN: continue home meds. #Hx of Parkinsons: continue Sinemet QID, Mirapex TID, Remeron Daily # Hx Polymalgyia rheumatica on Prednisone 5mg BID # Hx of HLD: patient is off atorvastatin at home, lipid panel # Hx of Prostate cancer # Anemia: stable DVT: Heparin SQ TID upon d/c follow up with interpreter :
[2019-04-24] MEDS ORDERED: MAGNESIUM OXIDE 400 MG TABLET (FP) PO SCH (22:00)
[2019-04-24] MEDS ORDERED: MELATONIN 5 MG TABLETS PO PRN (22:00)
[2019-04-24] MEDS: SENNOSIDES 8.6MG TABLET (FP) PO SCH (23:23)
[2019-04-24] MEDS: ATORVASTATIN CA 40 MG TABLET (FP) PO SCH (23:23)
[2019-04-24] MEDS: MIRTAZAPINE 15 MG TABLET (FP) PO SCH (23:23)
[2019-04-25 07:06] LABS: BASO % 0.5 % (0-2.0); EOS % 0.4 % (0-4.5); HEMOGLOBIN 10.4 GM/dL (11.7-16.9); LYMPH % 6.7 % (8-40); MCH 33.4 pg (25.7-33.7); MCHC 34.7 g/dl (32.0-35.9); MEAN CELL VOLUME 96.1 fl (80-96); MEAN PLT VOLUME 9.3 fl (7.5-11.1); MONO % 8.6 % (3.8-10.2); NEUT % 83.8 % (42.8-82.8); PLATELET COUNT 185 K/MM3 (134-434); RBC 3.12 M/mm3 (4.00-5.60); RDW 14.7 % (11.9-15.9); WHITE BLOOD COUNT 5.7 K/mm3 (4.0-10.0)
[2019-04-25] MEDS: HEPARIN NA (PORCINE) 5,000 UNITS/ML 1ML VIAL SQ SCH ×2 (07:22→14:23)
[2019-04-25] MEDS: PRAMIPEXOLE DIHYDROCHLORIDE 0.25 MG TABLET PO SCH ×2 (07:23→14:24)
[2019-04-25 07:46] LABS: ALBUMIN 2.8 g/dl (3.4-5.0); BILIRUBIN,TOTAL 0.9 mg/dL (0.2-1); CALCIUM 8.1 mg/dL (8.5-10.1); MAGNESIUM 1.9 mg/dL (1.8-2.4); PHOSPHOROUS 2.6 mg/dL (2.5-4.9); POTASSIUM 3.5 mmol/L (3.5-5.1)
[2019-04-25] MEDS ORDERED: FUROSEMIDE 40 MG/4 ML INJECTABLE VIAL IVPUSH SCH (10:00)
[2019-04-25] MEDS: DOCUSATE SODIUM 100 MG CAPSULE (FP) PO SCH (11:22)
[2019-04-25] MEDS: predniSONE 5 MG TABLET (UD) PO SCH (11:22)
[2019-04-25] MEDS: CARVEDILOL 6.25 MG TABLET (FP) PO SCH (11:22)
[2019-04-25] MEDS: FLUTICASONE PROP 0.05% 16 GM NASAL SPRAY NS SCH (11:22)
--- NOTE | 2019-04-25 14:45 | PN ---
Progress Note (short form) - Note Progress Note: Chief Complaint: Events noted, notes reviewed, resting in bed, family at the bedside ( and daughter) reports improvement in dyspnea, denies chest discomfort History of Present Illness: Seen and examined on telemetry. Events noted, notes reviewed, resting in bed, family at the bedside ( and daughter) reports improvement in dyspnea, denies chest discomfort Medications: Current Medications Acetaminophen (Tylenol -) 650 mg PO Q6H PRN PRN Reason: PAIN LEVEL 6-10 Last Admin: 04/23/19 17:09 Dose: 650 mg Atorvastatin Calcium (Lipitor -) 40 mg PO HS [facility] Last Admin: 04/24/19 23:23 Dose: 40 mg Carbidopa/Levodopa (Sinemet *Cr* 25/100 -) 1 combo PO QID [facility] Last Admin: 04/25/19 14:24 Dose: 1 combo Carvedilol (Coreg -) 6.25 mg PO BID [facility] Last Admin: 04/25/19 11:22 Dose: 6.25 mg Docusate Sodium (Colace -) 100 mg PO DAILY [facility] Last Admin: 04/25/19 11:22 Dose: 100 mg Fluticasone Propionate (Flonase -) 2 spray NS DAILY [facility] Last Admin: 04/25/19 11:22 Dose: 2 spray Furosemide (Lasix Injection -) 40 mg IVPUSH DAILY [facility] Last Admin: 04/25/19 11:22 Dose: 40 mg Heparin Sodium (Porcine) (Heparin -) 5,000 unit SQ TID [facility] Last Admin: 04/25/19 14:23 Dose: 5,000 unit Magnesium Oxide (Mag-Ox -) 400 mg PO [facility] Last Admin: 04/24/19 23:23 Dose: 400 mg Melatonin (Melatonin) 5 mg PO HS PRN PRN Reason: INSOMNIA Last Admin: 04/24/19 23:24 Dose: 5 mg Mirtazapine (Remeron -) 7.5 mg PO [facility] Last Admin: 04/24/19 23:23 Dose: 7.5 mg Pramipexole Dihydrochloride (Mirapex -) 0.25 mg PO TID [facility] Last Admin: 04/25/19 14:24 Dose: 0.25 mg Prednisone (Deltasone -) 5 mg PO BID [facility] Last Admin: 04/25/19 11:22 Dose: 5 mg Senna (Senna -) 1 tab PO HS [facility] Last Admin: 04/24/19 23:23 Dose: Not Given Valsartan (Diovan -) 160 mg PO DAILY [facility] Last Admin: 04/25/19 11:22 Dose: 160 mg Review of Systems - Review of Systems Constitutional: denies: Chills, Fever Cardiovascular: As noted above Respiratory: denies: Cough or Sputum Production Gastrointestinal: reports: Nausea, Vomiting, Diarrhea denies: Constipation or Abdominal Pain Neurological: denies: Headaches Vital Signs: Last Vital Signs Temp Pulse Resp BP Pulse Ox 98.2 F 70 18 141/61 95 04/24/19 14:20 04/25/19 10:00 04/25/19 10:00 04/25/19 10:00 04/25/19 09:00 Intake & Output 04/22/19 04/23/19 04/24/19 04/25/19 23:59 23:59 23:59 23:59 Intake Total 200 Output Total 600 1570 Balance -400 -1570 Weight 190 lb 6.24 oz 173 lb 4 oz 172 lb 6.4 oz Neck: Supple Negative JVD No Bruit Respiratory: Diminished breath sounds at the bases bilaterally Cardiovascular: S1 S2 Regular Rate Rhythm Gastrointestinal: Soft Benign Normal Bowel Sounds Ext: Trace Edema Labs: CBC, BMP 04/25/19 05:35 04/25/19 05:35 Hepatic Panel Total Bilirubin 0.9 mg/dL (0.2-1) 04/25/19 05:35 AST 19 U/L (15-37) 04/25/19 05:35 ALT 9 U/L (13-61) L 04/25/19 05:35 Alkaline Phosphatase 57 U/L (45-117) 04/25/19 05:35 Albumin 2.8 g/dl (3.4-5.0) L 04/25/19 05:35 INR, PTT INR 1.01 (0.83-1.09) 04/22/19 18:15 Assessment/Plan ASSESSMENT: 1. Acute on chronic class II [place] [employer] classification left ventricular failure related to systolic/diastolic left ventricular dysfunction in context of medication and dietary noncompliance, clinically resolving 2. Coronary artery disease angina pectoris 3. Hypertensive cardiovascular disease/hypertensive cardiomyopathy 4. Hypercholesterolemia 5. Ascending thoracic aortic aneurysm. 6. Parkinson's disease 7. Polymyalgia rheumatica on chronic Prednisone therapy 8. Chronic kidney disease 9. Prostate carcinoma 10. Anemia PLAN: 1. Continue Coreg 2. Continue Diovan 3. Continue Lasix therapy and switch to PO Lasix therapy administration 4. Continue Lipitor 5. Emphasized to the patient and his family importance of compliance to therapy administration and risk factor modification, in addition encourage increased ambulation (patient's family stated that he is sedentary most of the time) Amarilys Mcclure M.D.
[2019-04-25 15:54] VITALS: BP 131/64; PULSE 63
--- NOTE | 2019-04-25 16:30 | DS ---
Physical Exam: SUBJECTIVE: Patient seen and examined Patient feels better today, able to ambulate without any difficulty, 0xygen sat is 97% on RA, wants to go home, family member at bedside, able to ambulate without any difficulty. OBJECTIVE: Vital Signs Temperature 98.2 F 04/25/19 14:15 Pulse Rate 63 04/25/19 14:15 Respiratory Rate 16 04/25/19 14:15 Blood Pressure 131/64 04/25/19 14:15 O2 Sat by Pulse Oximetry (%) 96 04/25/19 16:00 GENERAL: The patient is awake, alert, and fully oriented, in no acute distress. RA 97% now HEAD: Normal with no signs of trauma. EYES: PERRL, extraocular movements intact, sclera anicteric, conjunctiva clear. ENT: Ears normal, oropharynx clear without exudates, moist mucous membranes. NECK: Trachea midline, full range of motion, supple. +JVD LUNGS: decreased BS BL otherwise CTA, no crackles, no accessory muscle use. HEART: RRR, S1, S2 +, JEY 2/6 , no rub or gallop. ABDOMEN: Soft, nontender, nondistended, normoactive bowel sounds, no guarding, no rebound, no hepatosplenomegaly, no masses. EXTREMITIES: 2+ pulses, warm, well-perfused, no edema. NEUROLOGICAL: Cranial nerves II through XII grossly intact. Normal speech, gait is stable PSYCH: Normal mood, normal affect. SKIN: Warm, dry, normal turgor, no rashes or lesions noted CBCD WBC 5.7 K/mm3 (4.0-10.0) 04/25/19 05:35 RBC 3.12 M/mm3 (4.00-5.60) L 04/25/19 05:35 Hgb 10.4 GM/dL (11.7-16.9) L 04/25/19 05:35 Hct 30.0 % (35.4-49) L 04/25/19 05:35 MCV 96.1 fl (80-96) H 04/25/19 05:35 MCHC 34.7 g/dl (32.0-35.9) 04/25/19 05:35 RDW 14.7 % (11.9-15.9) 04/25/19 05:35 Plt Count 185 K/MM3 (134-434) 04/25/19 05:35 MPV 9.3 fl (7.5-11.1) 04/25/19 05:35 CMP Sodium 141 mmol/L (136-145) 04/25/19 05:35 Potassium 3.5 mmol/L (3.5-5.1) 04/25/19 05:35 Chloride 102 mmol/L (98-107) 04/25/19 05:35 Carbon Dioxide 32 mmol/L (21-32) 04/25/19 05:35 Anion Gap 7 MMOL/L (8-16) L 04/25/19 05:35 BUN 25.0 mg/dL (7-18) H 04/25/19 05:35 Creatinine 1.0 mg/dL (0.55-1.3) 04/25/19 05:35 Random Glucose 98 mg/dL (74-106) 04/25/19 05:35 Calcium 8.1 mg/dL (8.5-10.1) L 04/25/19 05:35 Total Bilirubin 0.9 mg/dL (0.2-1) 04/25/19 05:35 AST 19 U/L (15-37) 04/25/19 05:35 ALT 9 U/L (13-61) L 04/25/19 05:35 Alkaline Phosphatase 57 U/L (45-117) 04/25/19 05:35 Total Protein 6.0 g/dl (6.4-8.2) L 04/25/19 05:35 Albumin 2.8 g/dl (3.4-5.0) L 04/25/19 05:35 CARDIAC ENZYMES Creatine Kinase 72 U/L (26-308) 04/22/19 18:15 Troponin I 0.05 ng/ml (0.00-0.05) 04/23/19 07:10 Current Medications Generic Name Dose Route Start Last Admin Trade Name Freq PRN Reason Stop Dose Admin Acetaminophen 650 mg 04/23/19 16:50 04/23/19 17:09 Tylenol - PO 650 mg Q6H PRN Administration PAIN LEVEL 6-10 Atorvastatin Calcium 40 mg 04/22/19 22:00 04/24/19 23:23 Lipitor - PO 40 mg HS MIGUEL Administration Carbidopa/Levodopa 1 combo 04/22/19 22:00 04/25/19 14:24 Sinemet *Cr* 25/100 - PO 1 combo QID MIGUEL Administration Carvedilol 6.25 mg 04/22/19 22:00 04/25/19 11:22 Coreg - PO 6.25 mg BID MIGUEL Administration Docusate Sodium 100 mg 04/23/19 10:00 04/25/19 11:22 Colace - PO 100 mg DAILY MIGUEL Administration Fluticasone Propionate 2 spray 04/23/19 10:00 04/25/19 11:22 Flonase - NS 2 spray DAILY MIGUEL Administration Furosemide 40 mg 04/25/19 10:00 04/25/19 11:22 Lasix Injection - IVPUSH 40 mg DAILY MIGUEL Administration Heparin Sodium (Porcine) 5,000 unit 04/22/19 22:00 04/25/19 14:23 Heparin - SQ 5,000 unit TID MIGUEL Administration Magnesium Oxide 400 mg 04/24/19 22:00 04/24/19 23:23 Mag-Ox - PO 400 mg HS MIGUEL Administration Melatonin 5 mg 04/24/19 22:00 04/24/19 23:24 Melatonin PO 5 mg HS PRN Administration INSOMNIA Mirtazapine 7.5 mg 04/22/19 22:00 04/24/19 23:23 Remeron - PO 7.5 mg HS MIGUEL Administration Pramipexole Dihydrochloride 0.25 mg 04/22/19 22:00 04/25/19 14:24 Mirapex - PO 0.25 mg TID MIGUEL Administration Prednisone 5 mg 04/22/19 22:00 04/25/19 11:22 Deltasone - PO 5 mg BID MIGUEL Administration Senna 1 tab 04/22/19 22:00 04/24/19 23:23 Senna - PO Not Given HS MIGUEL Valsartan 160 mg 04/24/19 13:06 04/25/19 11:22 Diovan - PO 160 mg DAILY MIGUEL Administration Home Medications Medication Instructions Recorded Carbidopa/Levodopa *Cr* 25/100 1 combo PO QID 08/12/18 [Sinemet *Cr* 25/100 -] Fluticasone Prop 0.05% Nasal 1 - 2 spray NS DAILY 08/12/18 [Flonase -] Gabapentin [Neurontin] 100 mg PO TID 08/12/18 Glucosamine/Chondroitn/C/Ignacio 1 each PO DAILY 08/12/18 [Glucosamine-Chondr Complex Tab] Mirtazapine 7.5 mg PO DAILY 08/12/18 Prednisone 5 mg PO BID 08/12/18 Sennosides [Senna] 8.6 mg PO DAILY 08/12/18 Atorvastatin Ca [Lipitor] 40 mg PO HS #15 tablet 08/14/18 Carvedilol [Coreg -] 6.25 mg PO BID #30 tablet 08/14/18 Furosemide Injection [Lasix 40 mg IVPUSH DAILY #15 vial 08/14/18 Injection -] Pramipexole Dihydrochloride 0.25 mg PO TID #45 tablet 08/14/18 [Mirapex -] Valsartan [Diovan] 80 mg PO DAILY #15 tablet 08/14/18 04/23/19 04/23/19 07:10 07:10 Iron 40 L TIBC 314 Iron Saturation 12 L Unsaturated IBC 274 Ferritin 95.7 Troponin I 0.05 B-Natriuretic Peptide Triglycerides 60 Cholesterol 208 H Total LDL Cholesterol 135 H HDL Cholesterol 59 Serum Folate TSH 04/22/[address]: 4.3 cm ascending aorta aneurysm stable, dilatation of main PA suggests pulm HTN 08/13/2018 Echo: Normal LV size with mild-mod decreased LV fxn, mild ARABELLA, mod AR , mild ao root dilatation 08/12/[address]: CHF, small pericardial effusion, 4.5 cm ascending aorta aneurysm 06/21/2017 Echo Mildly decreased LV fxn with moderate lateral wall HK, mild MR, TR, AR HOSPITAL COURSE: Date of Admission:04/22/19 Date of Discharge: 04/25/19 Patient ia a 83yo male with PMHx prostate cancer s/p XRT, CHF (diastolic & systolic), thoracic aortic aneurysm, cardiomyopathy, HTN, HLD, Parkinson's Disease, Polymyalgia rheumatica, who presents today with 3 weeks of progressively worsening shortness of breath likely secondary to Acute over chronic diastolic/systolic exacerbation of CHF. # Acute diastolic Exacerbation of CHF: stable now, will discharge the patient on oral lasix 40mg daily/coreg/diovan dose increased to 160mg , cardio consult , echo ordered # Hx of 4.5 cm ascending aortic aneurysm: follow up aS an outpatient # HTN: continue home meds. #Hx of Parkinsons: continue Sinemet QID, Mirapex TID, Remeron Daily # Hx Polymalgyia rheumatica on Prednisone 5mg BID # Hx of HLD: continuE LIPITOR 40MG PO HS # Hx of Prostate cancer # Anemia: STABLE NOW d/c patient home with follow up appointment with [employer] helper : ; [phone] Minutes to complete discharge: 40 Discharge Summary Problems reviewed: Yes Reason For Visit: SOB Current Active Problems CHF (congestive heart failure) (Acute) SOB (shortness of breath) (Acute) Condition: Stable - Instructions Diet, Activity, Other Instructions: You were admitted for congestive heart failure. Prescribed Furosemide 40mg orally to be taken in the morning. weight yourself everyday if any weight change , please let your doctor know about it Follow up with the [employer] layer helper within a week of your visit. need to repeat blood work such comprehensive panel. Patient has a history of 4.5 cm ascending aortic aneurysm: follow up as an outpatient with your primary and the [employer] [facility] helper If you become shortness of breath, or any chest pain please return to the emergency room. given you an incentive spirometer , please use it 4 x per day 10x each Referrals: Amarilys Mcclure MD [Staff Physician] - 1 Week Ry Celestin [Primary Care Provider] - 1 Week Disposition: HOME - Home Medications Comprehensive Discharge Medication List: Ambulatory Orders Carbidopa/Levodopa *Cr* 25/100 [Sinemet *Cr* 25/100 -] 1 combo PO QID 08/12/18 Fluticasone Prop 0.05% Nasal [Flonase -] 1 - 2 spray NS DAILY 08/12/18 Gabapentin [Neurontin] 100 mg PO TID 08/12/18 Glucosamine/Chondroitn/C/Ignacio [Glucosamine-Chondr Complex Tab] 1 each PO DAILY 08/12/18 Mirtazapine 7.5 mg PO DAILY 08/12/18 Prednisone 5 mg PO BID 08/12/18 Sennosides [Senna] 8.6 mg PO DAILY 08/12/18 Atorvastatin Ca [Lipitor] 40 mg PO HS #15 tablet 08/14/18 Carvedilol [Coreg -] 6.25 mg PO BID #30 tablet 08/14/18 Furosemide Injection [Lasix Injection -] 40 mg IVPUSH DAILY #15 vial 08/14/18 Pramipexole Dihydrochloride [Mirapex -] 0.25 mg PO TID #45 tablet 08/14/18 Valsartan [Diovan] 80 mg PO DAILY #15 tablet 08/14/18 This patient is new to me today: No Emergency Visit: Yes ED Registration Date: 04/22/19 Care time: The patient presented to the Emergency Department on the above date and was hospitalized for further evaluation of their emergent condition. Critical Care patient: No - Discharge Referral Referred to [facility] Med P.C.: No
== END 2019-04-25 17:28 | disposition home health service (06) | DRG 291 ==
LOC: JER 17:11 → JERBED 18:07 → J4W 04-23 12:15
PROVIDERS: ADMIT Internal Medicine; ATTEND Internal Medicine
PROC: 5A09357 Assistance with Respiratory Ventilation, Less than 24 Consecutive Hours, Continuous Positive Airway Pressure (ICD-10-PCS; principal; 2019-04-22)
DX: I13.0 Hypertensive heart and chronic kidney disease with heart failure and stage 1 through stage 4 chronic kidney disease, or unspecified chronic kidney disease (principal); I50.43 Acute on chronic combined systolic (congestive) and diastolic (congestive) heart failure; I31.3 Pericardial effusion (noninflammatory); I42.8 Other cardiomyopathies; I71.2 Thoracic aortic aneurysm, without rupture; G20 Parkinson's disease; M35.3 Polymyalgia rheumatica; G57.00 Lesion of sciatic nerve, unspecified lower limb; E78.5 Hyperlipidemia, unspecified; M51.36 Other intervertebral disc degeneration, lumbar region; D64.9 Anemia, unspecified; I25.10 Atherosclerotic heart disease of native coronary artery without angina pectoris; Z91.14 Patient's other noncompliance with medication regimen; Z91.11 Patient's noncompliance with dietary regimen; N18.9 Chronic kidney disease, unspecified; I27.20 Pulmonary hypertension, unspecified
CPT/HCPCS: 36415; 36600; 71045-TC-FY; 71250-TC; 80053; 80061; 82375; 82550; 82607; 82728; 82803; 83050; 83540; 83550; 83721; 83735; 83880; 84100; 84484; 85025; 85610; 85730; 93005; 93010; 93306-TC; 94640; 94660; 99285-25; J0131; J1644